=== PATIENT | male | born 1975 ===

== ENCOUNTER 2024-07-26 08:39 | Outpatient (AMB) | payer OTHER, SELFPAY ==
--- NOTE | 2024-07-26 08:45 | A.OFFPC_ITS ---
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 [employer] Required: No Allergies zoloft Adverse Reaction (Severe, Uncoded 07/26/24 09:07) Hallucinations Tobacco use date assessed: 07/26/24 Dental Screening Dental Screen Date: 07/26/24 Did you have a dental visit in the last 12 months?: Yes Did you have a dental problem in the last 6 months where you did not have access to dental care?: No Was dental information given to patient?: Patient has dentist HPI HPI Comments History of Present Illness Details New patient Prior PCP:?Minerva Sims Last office visit/CPE: About 1 year Acute issue(s): HTN -He is on diltiazem 120 mg daily and [place] 50 mg daily Hypercholesterolemia -He is on atorvastatin 20 mg daily GERD -He is on pantoprazole 40 mg daily Chronic paresthesia of the right hand and right and left foot -He notes that his symptoms started foll owing his stroke in 2014 -He is on pregabalin 150mg twice daily Ingrown toenail left great toe -Was referred to podiatry by his former PCP but never contacted for an appointment h/o PE, h/o left pulmonary infraction -He is on Xarelto 20 mg daily Anxiety, recurrent major depressive disorder, bipolar 1 disorder - He notes that he was followed by a [facility] chiatrist somewhere in [place] and was on Paxil, Depakote, buspirone, risperidone, and trazadone. He stopped taking psychotropic medication about a year ago, because I am better without them -He sees a therapist every 2 weeks at [facility] Anisometropia -Corrected with prescription glasses He reports controlled mood at this time. He generally sleeps well. He notes that i don't want to live because i have no family. I don't have any plans of killing myself, i can't do it, i'm a chicken. He notes that his kicked him out after he had the stroke because his thinks he is a burden to her. He currently resides in his mother's home; his mother is currently in a fpc He is currently employed by [employer] and works over 40 hours weekly He notes that he generally eats healthy. He does not engage in formal exercise but notes that his job is very physical PMHx: Anxiety, recurrent major depressive disorder, bipolar 1 disorder, panic disorder, memory loss, aphasia, PE, left pulmonary infarction, palpitations, CVA (2015), hypercholesterolemia, HTN, Gilbert's syndrome SurgHx: None FHx: Dad: Alcohol abuse SocHx: Smokes 10 cigarettes daily for the past 4years. Vapes nicotine weekly for the past 4 years. Drinks 2 beers occasionally. No recreational drugs Last eye exam was few months ago. Does not recall provider's or practice name. He will sign a release for his PCP to obtain record Last tetanus likely 5 years ago He has not been vaccinated for the flu and decline the vaccine He notes he was followed by Cardiology and GI at [facility] until his health plan stopped coverage. He notes that he saw neurology somewhere in [place] following his stroke and was told there is nothing they can do for me. [facility] Medical History (Updated 07/26/24 @ 10:59 by Patricia Montes CNP) Depression Anxiety Memory loss H/O blood clots Palpitation Stroke High cholesterol High blood pressure Family History (Updated 07/26/24 @ 09:10 by Wanda Dougherty MA) Father Alcohol abuse High blood pressure Cardiovascular disease Mother High blood pressure Maternal Grandmother Diabetes Maternal Grandfather Cardiovascular disease Other Gilbert syndrome Social History Housing: House Patient Tobacco Use Status: Current everyday Tobacco user Cigarette Packs Per Day: 10 Cigarettes Per Day: 10 e-Cigarette/Vaping Use: Currently Using Second Hand Smoke Exposure: No service: No Current occupational status: disabled Current occupational exposures/hazards: No Cognitive needs: Yes Hearing needs: No Vision needs: Yes Questionnaire PHQ-9 Over the last 2 weeks, how often have you been bothered by any of the following problems? 1. Little interest or pleasure in doing things: several days 2. Feeling down, depressed, or hopeless: several days 3. Trouble falling or staying asleep, or sleeping too much: several days 4. Feeling tired or having little energy: several days 5. Poor appetite or overeating: several days 6. Feeling bad about yourself - or that you are a failure or have let yourself or your family down: not at all 7. Trouble concentrating on things, such as reading the newspaper or watching television: several days 8. Moving or speaking so slowly that other people could have noticed. Or the opposite - being so fidgety or restless that you have been moving around a lot more than usual: several days 9. Thoughts that you would be better off or of hurting yourself in some way: several days Total score: 8 Depression Screening Interpretation: Positive Depression Screening Done: Yes 85009 - PHQ-9 Billing: Yes Source: Developed by Drs. Sergo Brady, Monse Nash, Tyler Casey and colleagues, with an educational lois from [employer]. Thrive Questionnaire Date Thrive assessed: 07/26/24 I am a: Patient What is your living situation today?: I choose not to answer this question Within the past 12 months, did the food you bought not last and you didn't have the money to get more?: I choose not to answer this question Within the past 12 months, did you worry whether your food would run out before you got money to buy more?: I choose not to answer this question Do you have trouble paying for medicines?: I choose not to answer this question Do you have trouble getting transportation to medical appointments?: I choose not to answer this question Do you have trouble paying your heating and electricity bill?: I choose not to answer this question Do you have trouble taking care of your child, family member or friend?: I choose not to answer this question Do you have trouble with day-to-day activities such as bathing, preparing meals, shopping, managing finances, etc.?: I choose not to answer this question Are you currently unemployed and looking for a job?: I choose not to answer this question Are you interested in more education?: I choose not to answer this question Please select the resources that you would like help with: None Currently or been in a relationship where the following occur: I choose not to answer THRIVE Score: 0 AUDIT C Alcohol Use Questionnaire (AUDIT-C) 1. How often do you have a drink containing alcohol?: Monthly or less 2. How many drinks containing alcohol do you have on a typical day when you are drinking?: 1 or 2 3. How often do you have six or more drinks on one occasion?: Never Total Score: 1 Score Reviewed/Action Taken: Yes ROSELYN-7 AMB Questionnaire ROSELYN-7 Date ROSELYN - 7 assessed: 07/26/24 Feeling nervous, anxious, or on edge: 1 = Several days Not being able to stop or control worryin = Several days Worrying too much about different things: 1 = Several days Trouble relaxin = Several days Being so restless that it is hard to sit still: 1 = Several days Becoming easily annoyed or irritable: 3 = Nearly every day Feeling afraid as if something awful might happen: 1 = Several days Total ROSELYN-7 score (0-4 normal; 5-9 mild; 10-14 moderate; 15-21 severe): 9 Source: Developed by Drs. Sergo Brady, Monse Nash, Tyler Casey and colleagues, with an educational lois from [employer]. ROSELYN-7 Assessment Billing ROSELYN-7 Assessment Tool: ROSELYN-7 Assessment 30599 Review of Systems Const Details: Denies chills, Denies fatigue, Denies fever(s), Denies headache(s) and Denies weakness HEENT Denies change in vision, Denies dizziness, Denies headache(s), Denies hearing loss, Denies nasal congestion, Denies sinus pain, Denies sinus pressure and Denies sore throat Card Denies chest pain, Denies lightheadedness, Denies dyspnea and Denies other (palpitations) Resp Denies cough, Denies dyspnea and Denies wheezing GI Denies abdominal pain, Denies melena, Denies hematochezia, Denies change in bowel habits, Denies dyspepsia and Denies nausea Denies hematuria and Denies dysuria Musc Denies abnormal gait, Denies myalgias, Denies arthralgias, Denies numbness and Denies tingling Skin/Breast Denies rash, Denies unusual bruising and Denies wounds Neuro Denies abnormal gait, Denies dizziness, Denies headache(s), Denies memory loss, Denies numbness, Denies Sensory deficit (Neuro), Denies tingling and Denies weakness Psych Denies anxiety, Denies depression and Denies memory loss Endo Denies cold intolerance, Denies fatigue, Denies heat intolerance, Denies polydipsia and Denies polyuria Wilver/Lymph Denies easy bleeding and Denies easy bruising Aller/Immun Denies wheezing Physical exam (Primary Care) Vital Signs: Last Vital Signs Temp 97.6 F 07/26/24 08:55 Pulse 94 07/26/24 08:55 Resp 16 07/26/24 08:55 BP 170/98 H 07/26/24 08:55 Pulse Ox 98 07/26/24 08:55 Oxygen Delivery Method Room Air 07/26/24 08:55 BMI result Body Mass Index 31.5 Tobacco/Smoking Status: Tobacco use Status Tobacco use date assessed 07/26/24 07/26/24 08:55 Patient Tobacco Use Status Current everyday Tobacco 07/26/24 08:55 e-Cigarette/Vaping Use Currently Using 07/26/24 08:55 PHQ-9: PHQ-9 Score PHQ-9: Total score 8 07/26/24 08:55 Depression Screening Interpretation: Positive Thrive Assessment: Date of Thrive Assessment Date Thrive assessed 07/26/24 07/26/24 08:55 Currently or been in a relationship where the following occur: I choose not to answer Const Other: General: no acute distress, well developed, alert and awake Nutritional Appearance: well nourished Orientation/consciousness: patient oriented x3 HENMT Head: Yes normocephalic and Yes atraumatic Ears: hearing grossly normal bilaterally and impacted cerumen in both ears occluding the TMs General nose exam: Normal external nose present and Normal nares present Mouth: Normal oral and palatal mucosa present and moist mucous membranes Teeth and gingiva: dentition normal Throat: Yes oropharynx normal Eyes Pupils: Equal, round and reactive pupils present and Pupil accommodation reflex normal EOM: EOMs intact bilaterally Neck Neck: Yes normal visual inspection, Yes no lymphadenopathy and Yes trachea midline Thyroid: Thyroid normal Carotids: no bruits Lymphatic: no lymphadenopathy noted Chest Chest palpation & inspection: normal inspection of the chest Resp Effort & Inspection: normal respiratory effort Auscultation: clear to auscultation bilaterally Cardio Rate: regular rate Rhythm: regular rhythm Heart sounds: S1 normal heart sound present, S2 normal heart sound present, no gallops, no murmurs and no rubs Bruits: no abdominal aortic bruits and no carotid bruits GI Palpation (GI): No Abdominal aortic bruit present, Soft to palpation, nontender, No hepatosplenomegaly present and No Rebound tenderness present Auscultation: normal bowel sounds General: Yes no CVA tenderness Back/Spine/Pelvis Back: no CVA tenderness Cervical Spine: cervical ROM normal and No Cervical spine tenderness Thoracic/Lumbar Spine: thoraco-lumbar ROM normal, No pain with thoraco-lumbar ROM, No thoracic spinal tenderness and No lumbar spinal tenderness Skin General: warm and dry. Normal skin color. Normal skin turgor Lesions: no lesions Rashes: no rashes Trauma: no lacerations or abrasions Wounds: no wounds Nails: normal Neuro General: patient oriented x3, gait normal and CN's II-XI intact bilaterally Cranial nerves: Yes Equal, round and reactive pupils present Cognition (Neuro): normal cognition Gait exam (Neuro): Normal gait present Motor exam (neuro): 5/5 motor strength present throughout Sensory Exam: No Sensory deficit (Neuro) Deep tendon reflexes (DTR's): Right patellar reflex intensity grade: 2+ and Left patellar reflex intensity grade: 2+ Extrem General: Yes normal to inspection, No edema and No calf tenderness Psych Appearance: grossly normal Affect: normal affect Attitude: cooperative Thought process: Normal thought process present Coding Level of Care Code New Pt Level 5 (41534) New Pt Prev Care 40-64y(85115) Diagnoses Normal physical examination, routine Z00.00 Major depressive disorder, recurrent F33.9 Bipolar 1 disorder F31.9 Anxiety F41.9 Memory loss R41.3 High blood pressure I10 Hypercholesterolemia E78.00 Hx pulmonary embolism Z86.711 Anisometropia H52.31 GERD (gastroesophageal reflux disease) K21.9 Paresthesias in right hand R20.2 Paresthesia of right foot R20.2 Paresthesia of left foot R20.2 Ingrown toenail of left foot L60.0 Smoking 1/2 pack a day or less F17.210 Engages in vaping Z72.89 Impacted cerumen of both ears H61.23 Obesity (BMI 30-39.9) E66.9 Laboratory tests ordered as part of a complete physical exam (CPE) Z00.00 Additional Codes ROSELYN-7 Assessment Billing - ROSELYN-7 Assessment Tool: ROSELYN-7 Assessment 44985 ([id number]) Time Spent (min) 60 Assessment & Plan Assessment & Plan (1) Normal physical examination, routine: Code(s): Z00.00 - Encounter for general adult medical examination without abnormal findings Category: Medical Plan: No significant functional limitations noted Continue current treatment regimen Healthy diet and routine exercise encouraged Medication reconciled with the pharmacy Follow-up in 2 days for a nurse visit for blood pressure check and with PCP in a week for hypertension Return sooner with symptoms or concerns Verbalized understanding and agreed with treatment plan (2) Major depressive disorder, recurrent: Code(s): F33.9 - Major depressive disorder, recurrent, unspecified Category: Medical Plan: Reports controlled mood. He generally sleeps well He was on psychotropic medication until a year ago. He stopped taking the medications because he thinks that his mood is controlled without them. He is currently employed PHQ-9 and ROSELYN-7 scores revealed mild depression and anxiety respectively He is followed by therapist every other week Routine exercise encouraged Advised to continue follow-up with therapist as planned Return with symptoms or concerns Verbalized understanding and agreed with the treatment plan (3) Bipolar 1 disorder: Code(s): F31.9 - Bipolar disorder, unspecified Category: Medical Plan: Plan as above (4) Anxiety: Code(s): F41.9 - Anxiety disorder, unspecified Category: Medical Plan: Plan as above (5) Memory loss: Code(s): R41.3 - Other amnesia Category: Medical Plan: Attributes member lost to CVA which he had in 2014 He also has expressive and receptive aphasia. His expressive dysphagia significantly improved following speech therapy. He still continues to struggle with information processing. He is a poor historian due to poor memory recall Declines referral to speech therapist Advised to inform his PCP for speech therapy referral as needed Verbalized understanding and agreed with the plan (6) High blood pressure: Code(s): I10 - Essential (primary) hypertension Category: Medical Plan: Resting blood pressure is 170/98, above goal of less than 130/80. He notes that he has not taking his medications today. He usually takes his medications in the afternoon. No headache, visual disturbances, or chest pain. He attributes his elevated blood pressure to feeling anxious at doctor's visits His blood pressure is likely elevated because he has not taking his medication and last 24 hours, medication doses may be inadequate, or white coat syndrome Encouraged to take his medications in the morning and as prescribed Low-sodium diet encouraged Follow-up for nurse visit for blood pressure check in 2 days and with PCP in a week Return with symptoms or concerns Verbalized understanding and agreed with the treatment plan (7) Hypercholesterolemia: Code(s): E78.00 - Pure hypercholesterolemia, unspecified Category: Medical Plan: Continue to take atorvastatin as prescribed Advised to limit foods high in saturated fat and avoid foods high in trans fat Routine exercise encouraged Will check lipid panel levels and make changes as needed Verbalized understanding and agreed with the plan (8) Hx pulmonary embolism: Code(s): Z86.711 - Personal history of pulmonary embolism Category: Medical Plan: Advised to take Xarelto as prescribed Verbalized understanding and agreed with the plan (9) Anisometropia: Code(s): H52.31 - Anisometropia Category: Medical Plan: Corrected with prescription glasses His last eye exam was a few months ago. He does not recall provider's or practice name. He will sign release for his PCP to obtain record (10) GERD (gastroesophageal reflux disease): Code(s): K21.9 - Gastro-esophageal reflux disease without esophagitis Category: Medical Plan: Continue take pantoprazole 40 mg daily (11) Paresthesias in right hand: Code(s): R20.2 - Paresthesia of skin Category: Medical Plan: He reports hronic paresthesia of the right hand and right and left foot which he attributes to history of stroke. He is on pregabalin 150mg twice daily Continue to take pregabalin as prescribed Follow-up with worsening or new symptoms Verbalized understanding and agreed with the plan (12) Paresthesia of right foot: Code(s): R20.2 - Paresthesia of skin Category: Medical Plan: Plan as above (13) Paresthesia of left foot: Code(s): R20.2 - Paresthesia of skin Category: Medical Plan: Plan as above (14) Ingrown toenail of left foot: Code(s): L60.0 - Ingrowing nail Category: Medical Plan: Ingrown toenail of the left great toe Referred to Podiatry (15) Smoking 1/2 pack a day or less: Code(s): F17.210 - Nicotine dependence, cigarettes, uncomplicated Category: Social Hx Plan: He has been smoking 10 cigarettes daily for the past 4years Instructed on the health risks and complications of cigarette smoking and smoking cessation encouraged Declines medications treatment for smoking cessation at this time He may notify his PCP as needed for medication treatment Verbalized understanding and agreed with the plan (16) Engages in vaping: Code(s): Z72.89 - Other problems related to lifestyle Category: Medical Plan: Instructed on the health risks and complications of vaping nicotine and encouraged to stop Declines medication treatment for nicotine use He may notify his PCP as needed for medication treatment Verbalized understanding and agreed with the treatment plan (17) Impacted cerumen of both ears: Code(s): H61.23 - Impacted cerumen, bilateral Category: Medical Plan: Impacted cerumen in both ears occluding the TMs Declined treatment with Debrox or ear lavage He may notify his PCP as needed for treatment Verbalized understanding and agreed with the plan (18) Obesity (BMI 30-39.9): Code(s): E66.9 - Obesity, unspecified Category: Medical Plan: He currently weighs 207 lb, BMI is 31.5 Declines referral to dietitian or weight management and notes he will continue with lifestyle changes Healthy diet and routine exercise encouraged Follow-up as needed for weight management referral Verbalized understanding and agreed with the plan (19) Laboratory tests ordered as part of a complete physical exam (CPE): Code(s): Z00.00 - Encounter for general adult medical examination without abnormal find ings Category: Medical Plan: Fasting labs ordered as part of a complete physical exam. Advised to fast for at least 10 hours before getting labs drawn. May drink water Verbalized understanding and agreed with treatment plan. Orders: Orders Comprehensive [place]. Panel Fast Today Z00.00 - Encounter for general adult medical examination without abnormal findings Microalbumin, Random (w Creat) Today Z00.00 - Encounter for general adult medical examination without abnormal findings UA CC w/rflx Micro + Cult Today Z00.00 - Encounter for general adult medical examination without abnormal findings PSA, Ultra Sensitive Today Z00.00 - Encounter for general adult medical examination without abnormal findings Complete Blood Count Auto Diff Today Z00.00 - Encounter for general adult medical examination without abnormal findings Lipid Panel Today Z00.00 - Encounter for general adult medical examination without abnormal findings TSH reflex Free T4 Today Z00.00 - Encounter for general adult medical examination without abnormal findings Referrals Podiatry Referral L60.0 - Ingrowing nail Medications: New atorvastatin 20 mg PO DAILY 90 days 90 tabs 1RF diltiazem HCl CD 120 mg PO DAILY 90 days 90 caps 1RF losartan 50 mg PO DAILY 90 days 90 tabs 1RF pantoprazole 40 mg PO DAILY 90 days 90 tabs 1RF rivaroxaban (Xarelto) 20 mg PO DAILY 90 days 90 tabs 1RF pregabalin 150 mg PO BID 30 days 60 caps 0RF
[2024-07-26 08:55] VITALS: BP 170/98; PULSE 94; RESP 16; TEMP 36.4; O2SAT 98; BMI 31.5
== END 2024-07-26 10:10 | disposition home or self-care (01) ==
PROVIDERS: Visit Provider Nurse Practitioner Family
DX: Z00.00 Encounter for general adult medical examination without abnormal findings (principal); I10 Essential (primary) hypertension; F31.9 Bipolar disorder, unspecified; F41.9 Anxiety disorder, unspecified; R41.3 Other amnesia; E78.00 Pure hypercholesterolemia, unspecified; Z86.711 Personal history of pulmonary embolism; H52.31 Anisometropia; K21.9 Gastro-esophageal reflux disease without esophagitis; R20.2 Paresthesia of skin; L60.0 Ingrowing nail

== ENCOUNTER → 2024-07-26 08:39 | Outpatient (BNVA) | payer OTHER, SELFPAY | PROVIDERS: Visit Provider Nurse Practitioner Family | DX: Z00.01 Encounter for general adult medical examination with abnormal findings (principal); F33.9 Major depressive disorder, recurrent, unspecified; F41.9 Anxiety disorder, unspecified; R41.3 Other amnesia; I10 Essential (primary) hypertension; E78.00 Pure hypercholesterolemia, unspecified; H52.31 Anisometropia; K21.9 Gastro-esophageal reflux disease without esophagitis; R20.2 Paresthesia of skin; L60.0 Ingrowing nail; H61.23 Impacted cerumen, bilateral; E66.9 Obesity, unspecified; Z72.89 Other problems related to lifestyle; Z86.711 Personal history of pulmonary embolism | CPT/HCPCS: 96127; 99202; 99386 ==

== ENCOUNTER → 2024-07-28 09:42 | Outpatient (BNVA) | payer OTHER, SELFPAY | PROVIDERS: Visit Provider Nurse Practitioner Family ==

== ENCOUNTER 2024-07-28 10:27 | Outpatient (REF) | payer OTHER, SELFPAY ==
[2024-07-28 11:45] LABS: Appearance Urine Clear; Color Urine Yellow; Glucose Urine UA Negative (Negative); Leukocyte Esterase Urine Negative (Negative); Nitrite Urine Negative (Negative); Urine Blood Negative (Negative); Urine Ketones Negative (Negative); Urine Protein Negative (Neg-Trace)
[2024-07-28 12:03] LABS: MANUAL DIFF FLAG NO
[2024-07-28 12:11] LABS: Basophils Absolute Auto 0.1 X10*3/uL (0.0-0.2); Basophils Percent Auto 1.1 % (0-2); Eosinophils Absolute Auto 0.1 X10*3/uL (0.0-0.4); Eosinophils Percent Auto 0.9 % (0-4); Hematocrit 52.1 % (42.0-52.0); Hemoglobin 17.9 g/dl (14.0-18.0); Imm Gran Abs Auto 0.04 X10*3/uL (0.00-0.03); Imm Gran Pct Auto 0.5 % (0.0-0.4); Lymphocytes Absolute Auto 1.4 X10*3/uL (1.2-4.9); Lymphocytes Percent Auto 18.7 % (20-40); Mean Corpuscular HGB Conc 34.4 g/dl (31.0-36.0); Mean Corpuscular Hemoglobin 31.4 pg (27.0-33.0); Mean Corpuscular Volume 91.4 fL (80.0-98.0); Monocytes Absolute Auto 0.6 X10*3/uL (0.1-1.2); Monocytes Percent Auto 7.9 % (2-11); Neutrophils Absolute Auto 5.3 x10*3/uL (2.0-8.3); Neutrophils Percent Auto 70.9 % (45-73); Platelet Count 383 X10*3/uL (160-400); Red Cell Distribution Width 12.1 % (11.0-16.0); White Blood Count 7.5 X10*3/uL (4.8-10.8)
[2024-07-28 13:32] LABS: Creatinine Urine 155.53 mg/dL; Microalbum/Creatinine Ratio Ur 7.7 ug/mg cr (<30)
[2024-07-28 13:35] LABS: Alanine Aminotransferase 28 U/L (0-40); Albumin Level 4.7 g/dL (3.5-5.0); Alkaline Phosphatase 80 U/L (39-117); Anion Gap 15 (12-20); Aspartate Amino Transferase 18 U/L (5-37); Bilirubin Total 1.6 mg/dL (0.0-1.0); Blood Urea Nitrogen 13 mg/dL (9-16); Calcium 9.9 mg/dL (8.4-10.2); Carbon Dioxide 29 mmol/L (22-29); Chloride 102 mmol/L (96-108); Cholesterol 178 mg/dL (<200); Estimated Glomerular Filt Rate > 60; Glucose Fasting 88 mg/dL (60-99); HDL Cholesterol 45 mg/dL (>40); LDL Cholesterol Calculated 117 mg/dL (<100); Potassium 4.5 mmol/L (3.3-5.1); Sodium 141 mmol/L (135-145); Total Protein 7.6 g/dL (6.5-8.0); Triglycerides 83 mg/dL (<150)
[2024-07-28 13:51] LABS: TSH reflex Free T4 0.82 uIU/mL (0.32-4.0)
[2024-08-02 20:38] LABS: PSA, Ultra Sensitive 1.91 ng/mL
== END 2024-07-28 10:28 | disposition home or self-care (01) ==
LOC: HO.WFDLDS 10:27
PROVIDERS: Visit Provider Nurse Practitioner Family
DX: Z00.00 Encounter for general adult medical examination without abnormal findings (principal)
CPT/HCPCS: 36415; 80053; 80061; 81003; 82043; 82570; 84153; 84443; 85025

== ENCOUNTER 2024-08-02 13:13 | Outpatient (AMB) | payer OTHER, SELFPAY ==
--- NOTE | 2024-08-02 13:15 | MHC.PC.OV ---
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 Allergies zoloft Adverse Reaction (Severe, Uncoded 08/02/24 13:32) Hallucinations Medication List - Last Reconciled 08/02/24 by Patricia Montes CNP atorvastatin 20 mg PO DAILY 90 days diltiazem HCl CD 120 mg PO DAILY 90 days losartan 50 mg PO DAILY 90 days pantoprazole 40 mg PO DAILY 90 days pregabalin 150 mg PO BID 30 days rivaroxaban (Xarelto) 20 mg PO DAILY 90 days Tobacco use date assessed: 08/02/24 Dental Screening Dental Screen Date: 07/26/24 Did you have a dental visit in the last 12 months?: No Did you have a dental problem in the last 6 months where you did not have access to dental care?: No Was dental information given to patient?: Patient declined HPI HPI Comments History of Present Illness Details 48-year-old male presents for hypertension follow-up He admits to taking his medications as prescribed without adverse reactions He offers no complaints and denies acute symptoms at this time [facility] Medical History (Updated 08/02/24 @ 13:37 by Patricia Montes CNP) Depression Anxiety Memory loss H/O blood clots Palpitation Stroke High cholesterol High blood pressure Family History (Updated 07/26/24 @ 09:10 by Wanda Dougherty MA) Father Alcohol abuse High blood pressure Cardiovascular disease Mother High blood pressure Maternal Grandmother Diabetes Maternal Grandfather Cardiovascular disease Other Gilbert syndrome Social History Housing: House Patient Tobacco Use Status: Current everyday Tobacco user Cigarette Packs Per Day: 10 Cigarettes Per Day: 10 e-Cigarette/Vaping Use: Currently Using Second Hand Smoke Exposure: No service: No Current occupational status: disabled Current occupational exposures/hazards: No Cognitive needs: Yes Hearing needs: No Vision needs: Yes Questionnaire Thrive Questionnaire Date Thrive assessed: 07/26/24 I am a: Patient What is your living situation today?: I choose not to answer this question Within the past 12 months, did the food you bought not last and you didn't have the money to get more?: I choose not to answer this question Within the past 12 months, did you worry whether your food would run out before you got money to buy more?: I choose not to answer this question Do you have trouble paying for medicines?: I choose not to answer this question Do you have trouble getting transportation to medical appointments?: I choose not to answer this question Do you have trouble paying your heating and electricity bill?: I choose not to answer this question Do you have trouble taking care of your child, family member or friend?: I choose not to answer this question Do you have trouble with day-to-day activities such as bathing, preparing meals, shopping, managing finances, etc.?: I choose not to answer this question Are you currently unemployed and looking for a job?: I choose not to answer this question Are you interested in more education?: I choose not to answer this question Please select the resources that you would like help with: None Currently or been in a relationship where the following occur: I choose not to answer THRIVE Score: 0 ROSELYN-7 AMB Questionnaire ROSELYN-7 Date ROSELYN - 7 assessed: 07/26/24 Becoming easily annoyed or irritable: 1 = Several days Source: Developed by Drs. Sergo Brady, Monse Nash, Tyler Casey and colleagues, with an educational lois from [employer]. Review of Systems Const Details: Const Denies chills, Denies fatigue, Denies fever(s), Denies headache(s) and Denies weakness ENT Denies dizziness and Denies headache(s) Card Denies chest pain, Denies lightheadedness, Denies dyspnea and Denies other (Palpitations) Resp Denies cough, Denies dyspnea, Denies wheezing and Denies other ( shortness of breath) GI Denies abdominal pain, Denies melena, Denies hematochezia, Denies change in bowel habits, Denies dyspepsia and Denies nausea Denies hematuria and Denies dysuria Musc Denies abnormal gait, Denies myalgias, Denies arthralgias, Denies numbness and Denies tingling Skin/Breast Denies rash, Denies unusual bruising and Denies wounds Neuro Denies abnormal gait, Denies dizziness, Denies headache(s), Denies memory loss, Denies numbness, Denies Sensory deficit (Neuro), Denies tingling and Denies weakness Psych Denies anxiety, Denies depression, Denies memory loss Endo Denies cold intolerance, Denies fatigue, Denies heat intolerance, Denies polydipsia and Denies polyuria Aller/Immun Denies wheezing Physical exam (Primary Care) Vital Signs: Last Vital Signs Temp 98.0 F 08/02/24 13:22 Pulse 85 08/02/24 13:22 Resp 16 08/02/24 13:22 BP 136/72 08/02/24 13:22 Pulse Ox 96 08/02/24 13:22 Oxygen Delivery Method Room Air 08/02/24 13:22 BMI result Body Mass Index 31.5 Tobacco/Smoking Status: Tobacco use Status Tobacco use date assessed 08/02/24 08/02/24 13:24 Patient Tobacco Use Status Current everyday Tobacco 08/02/24 13:18 e-Cigarette/Vaping Use Currently Using 08/02/24 13:18 Thrive Assessment: Date of Thrive Assessment Date Thrive assessed 07/26/24 08/02/24 13:18 Currently or been in a relationship where the following occur: I choose not to answer Const Other: General: no acute distress and well developed Nutritional Appearance: well nourished Orientation/consciousness: patient oriented x3 [facility] Head: Yes normocephalic and Yes atraumatic Eyes General: appearance normal, both eyes and all related structures Pupils: Equal, round and reactive pupils present EOM: EOMs intact bilaterally Resp Effort & Inspection: normal respiratory effort Auscultation: clear to auscultation bilaterally Cardio Rate: regular rate Rhythm: regular rhythm Heart sounds: S1 normal heart sound present, S2 normal heart sound present, no gallops, no murmurs and no rubs GI Palpation (GI): No Abdominal aortic bruit present, Soft to palpation, nontender, No hepatosplenomegaly present and No Rebound tenderness present Auscultation: normal bowel sounds General: Yes no CVA tenderness Back/Spine/Pelvis Back: no CVA tenderness Extrem General: Yes normal to inspection, No edema and No calf tenderness Skin General: warm and dry. Normal skin color. Normal skin turgor Neuro General: patient oriented x3, gait normal and no focal neuro deficit Cranial nerves: Yes Equal, round and reactive pupils present Cognition (Neuro): normal cognition Gait exam (Neuro): Normal gait present Sensory Exam: No Sensory deficit (Neuro) Psych Appearance: grossly normal Affect: normal affect Attitude: cooperative Thought process: Normal thought process present Coding Level of Care Code Est Pt Level 4 (37452) Diagnoses High blood pressure I10 Gilbert syndrome E80.4 Time Spent (min) 40 Assessment & Plan Assessment & Plan (1) High blood pressure: Code(s): I10 - Essential (primary) hypertension Category: Medical Plan: Resting blood pressure is 136/72, slightly above goal of less than 130/80 Continue current treatment regimen Low-sodium diet and routine exercise encouraged Follow-up in 1 month or sooner with symptoms or concerns Verbalized understanding and agreed with treatment plan (2) Gilbert syndrome: Code(s): E80.4 - Gilbert syndrome Category: Medical Plan: Recent lab results reviewed with the patient. Unremarkable findings except for elevated bilirubin, 6.1 No acute signs or symptoms noted He has a history of Gilbert syndrome
[2024-08-02 13:22] VITALS: BP 136/72; PULSE 85; RESP 16; TEMP 36.7; O2SAT 96; BMI 31.5
== END 2024-08-02 13:57 | disposition home or self-care (01) ==
PROVIDERS: PCP Nurse Practitioner Family; Visit Provider Nurse Practitioner Family
DX: I10 Essential (primary) hypertension (principal); E80.4 Gilbert syndrome

== ENCOUNTER → 2024-08-02 13:13 | Outpatient (BNVA) | payer OTHER, SELFPAY | PROVIDERS: Visit Provider Nurse Practitioner Family | DX: I10 Essential (primary) hypertension (principal); E80.4 Gilbert syndrome | CPT/HCPCS: 99212 ==

== ENCOUNTER 2024-08-11 14:48 | Outpatient (AMB) | payer OTHER, SELFPAY ==
--- NOTE | 2024-08-11 14:53 | A.OFFPC_ITS ---
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 Allergies zoloft Adverse Reaction (Severe, Uncoded 08/02/24 13:32) Hallucinations Medication List - Last Reconciled 08/11/24 by Patricia Montes CNP atorvastatin 20 mg PO DAILY 90 days diltiazem HCl CD 120 mg PO DAILY 90 days losartan 50 mg PO DAILY 90 days pantoprazole 40 mg PO DAILY 90 days pregabalin 150 mg PO BID 30 days rivaroxaban (Xarelto) 20 mg PO DAILY 90 days Tobacco use date assessed: 08/11/24 Dental Screening Dental Screen Date: 07/26/24 HPI HPI Comments History of Present Illness Details 48 y/o male presents to have FMLA paperw ork filled out for potential unplanned excuse from work for stress and anxiety. He notes that he experienced stress and painc attack in the middle of July while at work. EMS was contacted and found the patient's SBP to be 180. He notes that his employer advised to that an FMLA paperwork signed for few days unexpected leave monthly. He sees his therapist every 2 weeks. He denies acute symptoms at this time. He reports controlled anxiety and depressive symptoms and notes that he does not want to be on psychotropic medications [facility] Medical History (Updated 08/02/24 @ 13:37 by Patricia Montes CNP) Depression Anxiety Memory loss H/O blood clots Palpitation Stroke High cholesterol High blood pressure Family History (Updated 07/26/24 @ 09:10 by Wanda Dougherty MA) Father Alcohol abuse High blood pressure Cardiovascular disease Mother High blood pressure Maternal Grandmother Diabetes Maternal Grandfather Cardiovascular disease Other Gilbert syndrome Social History Housing: House Patient Tobacco Use Status: Current everyday Tobacco user Cigarette Packs Per Day: 10 Cigarettes Per Day: 10 e-Cigarette/Vaping Use: Currently Using Second Hand Smoke Exposure: No service: No Current occupational status: disabled Current occupational exposures/hazards: No Cognitive needs: Yes Hearing needs: No Vision needs: Yes Questionnaire Thrive Questionnaire Date Thrive assessed: 07/26/24 I am a: Patient What is your living situation today?: I choose not to answer this question Within the past 12 months, did the food you bought not last and you didn't have the money to get more?: I choose not to answer this question Within the past 12 months, did you worry whether your food would run out before you got money to buy more?: I choose not to answer this question Do you have trouble paying for medicines?: I choose not to answer this question Do you have trouble getting transportation to medical appointments?: I choose not to answer this question Do you have trouble paying your heating and electricity bill?: I choose not to answer this question Do you have trouble taking care of your child, family member or friend?: I choose not to answer this question Do you have trouble with day-to-day activities such as bathing, preparing meals, shopping, managing finances, etc.?: I choose not to answer this question Are you currently unemployed and looking for a job?: I choose not to answer this question Are you interested in more education?: I choose not to answer this question Please select the resources that you would like help with: None Currently or been in a relationship where the following occur: I choose not to answer THRIVE Score: 0 AUDIT C Alcohol Use Questionnaire (AUDIT-C) 1. How often do you have a drink containing alcohol?: Never Total Score: 0 ROSELYN-7 AMB Questionnaire ROSELYN-7 Date ROSELYN - 7 assessed: 07/26/24 Source: Developed by Drs. Sergo Brady, Monse Nash, Tyler Casey and colleagues, with an educational lois from [employer]. Review of Systems Const Details: Const Denies chills, Denies fatigue, Denies fever(s), Denies headache(s) and Denies weakness ENT Denies dizziness and Denies headache(s) Card Denies chest pain, Denies lightheadedness, Denies dyspnea and Denies other (Palpitations) Resp Denies cough, Denies dyspnea, Denies wheezing and Denies other ( shortness of breath) GI Denies abdominal pain, Denies melena, Denies hematochezia, Denies change in bowel habits, Denies dyspepsia and Denies nausea Denies hematuria and Denies dysuria Musc Denies abnormal gait, Denies myalgias, Denies arthralgias, Denies numbness and Denies tingling Skin/Breast Denies rash, Denies unusual bruising and Denies wounds Neuro Denies abnormal gait, Denies dizziness, Denies headache(s), Denies memory loss, Denies numbness, Denies Sensory deficit (Neuro), Denies tingling and Denies weakness Psych Denies anxiety, Denies depression, Denies memory loss Endo Denies cold intolerance, Denies fatigue, Denies heat intolerance, Denies polydipsia and Denies polyuria Aller/Immun Denies wheezing Physical exam (Primary Care) Vital Signs: Last Vital Signs Temp 97.9 F 08/11/24 14:59 Pulse 70 08/11/24 14:59 Resp 16 08/11/24 14:59 BP 126/78 08/11/24 14:59 Pulse Ox 97 08/11/24 14:59 Oxygen Delivery Method Room Air 08/11/24 14:59 BMI result Body Mass Index 32.0 Tobacco/Smoking Status: Tobacco use Status Tobacco use date assessed 08/11/24 08/11/24 15:01 Patient Tobacco Use Status Current everyday Tobacco 08/11/24 14:56 e-Cigarette/Vaping Use Currently Using 08/11/24 14:56 Thrive Assessment: Date of Thrive Assessment Date Thrive assessed 07/26/24 08/11/24 14:56 Currently or been in a relationship where the following occur: I choose not to answer Const Other: General: no acute distress and well developed Nutritional Appearance: well nourished Orientation/consciousness: patient oriented x3 HENMT Head: Yes normocephalic and Yes atraumatic Eyes General: appearance normal, both eyes and all related structures Pupils: Equal, round and reactive pupils present EOM: EOMs intact bilaterally Resp Effort & Inspection: normal respiratory effort Auscultation: clear to auscultation bilaterally Cardio Rate: regular rate Rhythm: regular rhythm Heart sounds: S1 normal heart sound present, S2 normal heart sound present, no gallops, no murmurs and no rubs GI Palpation (GI): No Abdominal aortic bruit present, Soft to palpation, nontender, No hepatosplenomegaly present and No Rebound tenderness present Auscultation: normal bowel sounds General: Yes no CVA tenderness Back/Spine/Pelvis Back: no CVA tenderness Cervical Spine: cervical ROM normal and No Cervical spine tenderness Thoracic/Lumbar Spine: thoraco-lumbar ROM normal, No pain with thoraco-lumbar ROM, No thoracic spinal tenderness and No lumbar spinal tenderness Extrem General: Yes normal to inspection, No edema and No calf tenderness Skin General: warm and dry. Normal skin color. Normal skin turgor Lesions: no lesions Rashes: no rashes Trauma: no lacerations or abrasions Wounds: no wounds Nails: normal Neuro General: patient oriented x3, gait normal and no focal neuro deficit Cranial nerves: Yes Equal, round and reactive pupils present Cognition (Neuro): normal cognition Gait exam (Neuro): Normal gait present Sensory Exam: No Sensory deficit (Neuro) Psych Appearance: grossly normal Affect: normal affect Attitude: cooperative Thought process: Normal thought process present Coding Level of Care Code Est Pt Level 3 (22157) Diagnoses Anxiety F41.9 Assessment & Plan Assessment & Plan (1) Anxiety: Code(s): F41.9 - Anxiety disorder, unspecified Category: Medical Plan: Reports controlled anxiety and depressive symptoms FMLA paperwork completed and signed for the patient's employer Continue follow-up with therapist as planned Routine exercise encouraged Follow-up with PCP as planned Verbalized understanding and agreed with the plan
[2024-08-11 14:59] VITALS: BP 126/78; PULSE 70; RESP 16; TEMP 36.6; O2SAT 97; BMI 32.0
== END 2024-08-11 15:52 | disposition home or self-care (01) ==
LOC: HO.HMCFM 14:49
PROVIDERS: PCP Nurse Practitioner Family; Visit Provider Nurse Practitioner Family
DX: F41.9 Anxiety disorder, unspecified (principal)

== ENCOUNTER → 2024-08-11 14:48 | Outpatient (BNVA) | payer OTHER, SELFPAY | PROVIDERS: PCP Nurse Practitioner Family; Visit Provider Nurse Practitioner Family | DX: F41.9 Anxiety disorder, unspecified (principal) | CPT/HCPCS: 99212 ==

== ENCOUNTER 2024-09-04 12:57 | Outpatient (AMB) | payer OTHER, SELFPAY ==
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
[2024-09-04 13:10] VITALS: BP 126/76; PULSE 74; RESP 16; TEMP 36.4; O2SAT 97; BMI 32.7
== END 2024-09-04 13:34 | disposition home or self-care (01) ==
PROVIDERS: PCP Nurse Practitioner Family; Visit Provider Nurse Practitioner Family
DX: I10 Essential (primary) hypertension (principal); E80.4 Gilbert syndrome; H61.23 Impacted cerumen, bilateral

== ENCOUNTER → 2024-09-04 12:57 | Outpatient (BNVA) | payer OTHER, SELFPAY | PROVIDERS: PCP Nurse Practitioner Family; Visit Provider Nurse Practitioner Family | DX: I10 Essential (primary) hypertension (principal); E80.4 Gilbert syndrome; H61.23 Impacted cerumen, bilateral | CPT/HCPCS: 99212 ==

== ENCOUNTER 2024-10-17 09:24 | Outpatient (AMB) | payer OTHER, SELFPAY ==
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
[2024-10-17 09:30] VITALS: BP 162/81; PULSE 73; RESP 16; TEMP 36.4; O2SAT 98; BMI 32.7
[2024-10-17 10:20] VITALS: BP 154/80; PULSE 76
== END 2024-10-17 10:43 | disposition home or self-care (01) ==
PROVIDERS: PCP Nurse Practitioner Family; Visit Provider Nurse Practitioner Family
DX: F41.1 Generalized anxiety disorder (principal); F41.0 Panic disorder [episodic paroxysmal anxiety]; I10 Essential (primary) hypertension

== ENCOUNTER → 2024-10-17 09:24 | Outpatient (BNVA) | payer OTHER, SELFPAY | PROVIDERS: PCP Nurse Practitioner Family; Visit Provider Nurse Practitioner Family | DX: F41.1 Generalized anxiety disorder (principal); F41.0 Panic disorder [episodic paroxysmal anxiety]; I10 Essential (primary) hypertension | CPT/HCPCS: 96127; 99212 ==

== ENCOUNTER → 2024-10-31 13:34 | Outpatient (BNVA) | payer OTHER, SELFPAY | PROVIDERS: PCP Nurse Practitioner Family; Visit Provider Nurse Practitioner Family | DX: Z01.30 Encounter for examination of blood pressure without abnormal findings (principal) | CPT/HCPCS: 99211 ==

== ENCOUNTER → 2024-11-15 13:04 | Outpatient (BNVA) | payer OTHER, SELFPAY | PROVIDERS: PCP Nurse Practitioner Family; Visit Provider Nurse Practitioner Family | DX: F41.0 Panic disorder [episodic paroxysmal anxiety] (principal); F41.1 Generalized anxiety disorder; I10 Essential (primary) hypertension | CPT/HCPCS: 99212 ==

== ENCOUNTER 2024-11-28 14:38 | Outpatient (AMB) | payer OTHER, SELFPAY ==
--- NOTE | 2024-11-28 14:46 | MHC.PC.OV ---
Vital Signs 11/28/24 14:51 Height 5 ft 8 in Weight 214 lb BMI 32.5 BP 136/74 Blood Pressure Location Rt brachial Position Sitting Respiration 16 Pulse 63 Pulse Source Pulse Oximeter Temp 97.4 F Temp Source Oral Pulse Oximetry (%) 99 Oxygen Delivery Method Room Air Intake Visit Reasons: paperwork Intake Note: patient here for paper work Supervisor Testing Required: No Allergies zoloft Adverse Reaction (Severe, Uncoded 11/28/24 15:07) Hallucinations Medication List - Last Reconciled 11/28/24 by Patricia Montes CNP atorvastatin 20 mg PO DAILY 90 days carbamide peroxide 6.5% (Debrox) 5 drps otic (ears) DAILY 4 days diltiazem HCl CD 120 mg PO DAILY 90 days losartan 50 mg PO DAILY 90 days pantoprazole 40 mg PO DAILY 90 days pregabalin 150 mg PO BID 90 days propranolol 10 mg PO BID 30 days rivaroxaban (Xarelto) 20 mg PO DAILY 90 days Tobacco use date assessed: 11/28/24 Dental Screening Dental Screen Date: 11/28/24 Did you have a dental visit in the last 12 months?: No Did you have a dental problem in the last 6 months where you did not have access to dental care?: No Was dental information given to patient?: Patient has dentist HPI HPI Comments History of Present Illness Details 49-year-old male presents to have Paid Leave paperwork completed for his employer. He was admitted at [facility] between 09/27/2024 and 09/28/2024 for panic and anxiety. Initially presented in the ED and was evaluated by crisis. He denied hallucination or SI. He endorsed situation at [place] with plan and intent if he is restrained by staff. He was transferred from [facility] to [facility] where he treated and discharged on 10/05/2024 He was cleared by his PCP to resume work on 10/17/2024. Paid Leave paperwork completed for patient's employer on 11/15/2024. However, the patient notes that his employer requires more information on the forms. He reports controlled anxiety and panic symptoms since starting propranolol. He has not had any panic attack since his last visit. He has been taking propranolol 10 mg once a day instead of twice a day as prescribed. He has been enjoying the company of a new female friend. He speaks to his therapist once a month. No acute symptoms at this time. [facility] Medical History (Updated 10/17/24 @ 16:45 by Patricia Montes CNP) Depression Anxiety Memory loss H/O blood clots Palpitation Stroke High cholesterol High blood pressure Family History (Updated 07/26/24 @ 09:10 by Wanda Dougherty MA) Father Alcohol abuse High blood pressure Cardiovascular disease Mother High blood pressure Maternal Grandmother Diabetes Maternal Grandfather Cardiovascular disease Other Gilbert syndrome Social History Housing: House Patient Tobacco Use Status: Current everyday Tobacco user Cigarette Packs Per Day: 10 Cigarettes Per Day: 10 e-Cigarette/Vaping Use: Currently Using Second Hand Smoke Exposure: No service: No Current occupational status: disabled Current occupational exposures/hazards: No Cognitive needs: Yes Hearing needs: No Vision needs: Yes Questionnaire PHQ-9 Over the last 2 weeks, how often have you been bothered by any of the following problems? 1. Little interest or pleasure in doing things: several days 2. Feeling down, depressed, or hopeless: not at all 3. Trouble falling or staying asleep, or sleeping too much: not at all 4. Feeling tired or having little energy: several days 5. Poor appetite or overeating: not at all 6. Feeling bad about yourself - or that you are a failure or have let yourself or your family down: not at all 7. Trouble concentrating on things, such as reading the newspaper or watching television: nearly every day 8. Moving or speaking so slowly that other people could have noticed. Or the opposite - being so fidgety or restless that you have been moving around a lot more than usual: several days 9. Thoughts that you would be better off or of hurting yourself in some way: not at all Total score: 6 Depression Screening Interpretation: Positive Depression Screening Follow-up: Existing condition and In treatment Depression Screening Done: Yes 12405 - PHQ-9 Billing: Yes Source: Developed by Drs. Sergo Brady, Monse Nash, Tyler Casey and colleagues, with an educational lois from [employer]. Thrive Questionnaire Date Thrive assessed: 11/28/24 I am a: Patient What is your living situation today?: I have a steady place to live Within the past 12 months, did the food you bought not last and you didn't have the money to get more?: I choose not to answer this question Within the past 12 months, did you worry whether your food would run out before you got money to buy more?: I choose not to answer this question Do you have trouble paying for medicines?: I choose not to answer this question Do you have trouble getting transportation to medical appointments?: I choose not to answer this question Do you have trouble paying your heating and electricity bill?: I choose not to answer this question Do you have trouble taking care of your child, family member or friend?: I choose not to answer this question Do you have trouble with day-to-day activities such as bathing, preparing meals, shopping, managing finances, etc.?: I choose not to answer this question Are you currently unemployed and looking for a job?: I choose not to answer this question Are you interested in more education?: I choose not to answer this question Please select the resources that you would like help with: None THRIVE Score: 0 AUDIT C Alcohol Use Questionnaire (AUDIT-C) 1. How often do you have a drink containing alcohol?: Never Total Score: 0 ROSELYN-7 AMB Questionnaire ROSELYN-7 Date ROSELYN - 7 assessed: 11/28/24 Feeling nervous, anxious, or on edge: 1 = Several days Not being able to stop or control worryin = Several days Worrying too much about different things: 1 = Several days Trouble relaxin = Several days Being so restless that it is hard to sit still: 1 = Several days Becoming easily annoyed or irritable: 1 = Several days Feeling afraid as if something awful might happen: 1 = Several days Total ROSELYN-7 score (0-4 normal; 5-9 mild; 10-14 moderate; 15-21 severe): 7 Source: Developed by Drs. Sergo Brady, Monse Nash, Tyler Casey and colleagues, with an educational lois from [employer]. ROSELYN-7 Assessment Billing ROSELYN-7 Assessment Tool: ROSELYN-7 Assessment 50965 Review of Systems Const Details: Const Denies chills, Denies fatigue, Denies fever(s), Denies headache(s) and Denies weakness ENT Denies dizziness and Denies headache(s) Card Denies chest pain, Denies lightheadedness, Denies dyspnea and Denies other (Palpitations) Resp Denies cough, Denies dyspnea, Denies wheezing and Denies other ( shortness of breath) GI Denies abdominal pain, Denies melena, Denies hematochezia, Denies change in bowel habits, Denies dyspepsia and Denies nausea Denies hematuria and Denies dysuria Musc Denies abnormal gait, Denies myalgias, Denies arthralgias, Denies numbness and Denies tingling Skin/Breast Denies rash, Denies unusual bruising and Denies wounds Neuro Denies abnormal gait, Denies dizziness, Denies headache(s), Denies memory loss, Denies numbness, Denies Sensory deficit (Neuro), Denies tingling and Denies weakness Psych Denies anxiety, Denies depression, Denies memory loss Endo Denies cold intolerance, Denies fatigue, Denies heat intolerance, Denies polydipsia and Denies polyuria Aller/Immun Denies wheezing Physical exam (Primary Care) Vital Signs: Last Vital Signs Temp 97.4 F 11/28/24 14:51 Pulse 63 11/28/24 14:51 Resp 16 11/28/24 14:51 BP 136/74 11/28/24 14:51 Pulse Ox 99 11/28/24 14:51 Oxygen Delivery Method Room Air 11/28/24 14:51 BMI result Body Mass Index 32.5 Tobacco/Smoking Status: Tobacco use Status Tobacco use date assessed 11/28/24 11/28/24 14:57 Patient Tobacco Use Status Current everyday Tobacco 11/28/24 14:47 e-Cigarette/Vaping Use Currently Using 11/28/24 14:47 Depression Screening Interpretation: Positive Depression Screening Follow-up: Existing condition and In treatment Thrive Assessment: Date of Thrive Assessment Date Thrive assessed 10/14/24 11/28/24 14:47 Const Other: General: no acute distress and well developed Nutritional Appearance: well nourished Orientation/consciousness: patient oriented x3 HENMT Head: Yes normocephalic and Yes atraumatic Eyes General: appearance normal, both eyes and all related structures Pupils: Equal, round and reactive pupils present EOM: EOMs intact bilaterally Resp Effort & Inspection: normal respiratory effort Auscultation: clear to auscultation bilaterally Cardio Rate: regular rate Rhythm: regular rhythm Heart sounds: S1 normal heart sound present, S2 normal heart sound present, no gallops, no murmurs and no rubs GI Palpation (GI): No Abdominal aortic bruit present, Soft to palpation, nontender, No hepatosplenomegaly present and No Rebound tenderness present Auscultation: normal bowel sounds General: Yes no CVA tenderness Back/Spine/Pelvis Back: no CVA tenderness Cervical Spine: cervical ROM normal and No Cervical spine tenderness Thoracic/Lumbar Spine: thoraco-lumbar ROM normal, No pain with thoraco-lumbar ROM, No thoracic spinal tenderness and No lumbar spinal tenderness Extrem General: Yes normal to inspection, No edema and No calf tenderness Skin General: warm and dry. Normal skin color. Normal skin turgor Neuro General: patient oriented x3, gait normal and no focal neuro deficit Cranial nerves: Yes Equal, round and reactive pupils present Cognition (Neuro): normal cognition Gait exam (Neuro): Normal gait present Sensory Exam: No Sensory deficit (Neuro) Psych Appearance: grossly normal Affect: normal affect Attitude: cooperative Thought process: Normal thought process present Coding Level of Care Code Est Pt Level 3 (77149) Diagnoses Generalized anxiety disorder F41.1 Panic attack F41.0 High blood pressure I10 Additional Codes ROSELYN-7 Assessment Billing - ROSELYN-7 Assessment Tool: ROSELYN-7 Assessment 82390 ([id number]) PHQ-9 - 89125 - PHQ-9 Billing: Yes ([id number]) Assessment & Plan Assessment & Plan (1) Generalized anxiety disorder: Code(s): F41.1 - Generalized anxiety disorder Category: Medical Plan: Controlled anxiety and depressive symptoms on current treatment regimen. PHQ-9 and ROSELYN-7 scores revealed mild depression and anxiety. Continue current treatment regimen. Fast for 10-12 hours, may drink water, and perform lipid panel blood work 2-3 days before next visit. Follow-up later this month as planned or sooner with symptoms or concerns. Verbalized understanding and agreed with treatment plan. Paid Leave paperwork modified per patient's employer's request and will be scanned in his chart. (2) Panic attack: Code(s): F41.0 - Panic disorder [episodic paroxysmal anxiety] Category: Medical Plan: Plan as above. (3) High blood pressure: Code(s): I10 - Essential (primary) hypertension Category: Medical Plan: Blood pressure is 136/74, within goal of less than 140/90. Continue current treatment regimen. Will continue to monitor. Verbalized understanding and agreed with the plan.
[2024-11-28 14:51] VITALS: BP 136/74; PULSE 63; RESP 16; TEMP 36.3; O2SAT 99; BMI 32.5
--- OUTSIDE RECORDS SUMMARY | 2024-11-28 15:38 | XMS_ITS | Clinical Summary ---
Author Organization [facility] Address [address] [place] [address] Care Team Providers Care Burner Technician Name Role Phone Barbara Schilling Primary Care Provider Allergies Active Allergy Reactions Criticality Noted Date Comments Sertraline Delirium/Confusion/P sychosis,O ther (See Comments) Low 07/29/2015 Hallucinations Medications Medication Sig Dispensed Refills Start Date End Date Status aspirin 81 MG chewable tablet Chew 81 mg daily. Active atorvastatin (LIPITOR) 10 MG tablet Take 10 mg by mouth daily. Active diltiazem (CARDIZEM CD) 120 MG 24 hr capsule Take 120 mg by mouth daily. Active losartan (COZAAR) 25 MG tablet Take 25 mg by mouth daily. Active OMEprazole (PriLOSEC) 20 MG capsule Take 20 mg by mouth every morning before breakfast. Active PARoxetine (PAXIL-CR) 25 MG 24 hr tablet Take 62.5 mg by mouth every morning. Active pregabalin (LYRICA) 75 MG capsule Take 75 mg by mouth 2 (two) times a day. Active rivaroxaban (XARELTO) 20 MG tablet Take 20 mg by mouth every evening with dinner. Take with meals. Active clonazePAM (KlonoPIN) 0.5 MG tablet Take 0.5 mg by mouth 2 (two) times a day. 06/19/2020 Active fluticasone (FloNASE) 50 mcg/spray nasal spray 2 sprays daily. 04/29/2020 Active methocarbamol (ROBAXIN) 750 MG tablet TAKE ONE TABLET BY MOUTH THREE TIMES A DAY NEEDED FOR PAIN OR SPASM 06/19/2020 Active PANTOprazole (PROTONIX) 40 MG EC tablet 04/29/2020 Active mirtazapine (REMERON) 7.5 MG tablet 04/29/2020 Active potassium chloride (KLOR-CON) 10 MEQ tablet 04/29/2020 Active pregabalin (LYRICA) 150 MG capsule Take 1 capsule by mouth daily. 04/11/2020 Active traZODone (DESYREL) 50 MG tablet 04/29/2020 Active losartan (COZAAR) 50 MG tablet 05/05/2020 Active Active Problems Problem Noted Date Diagnosed Date Cellulitis 06/21/2020 Thrombophlebitis 06/21/2020 History of pulmonary embolism 06/21/2020 Social History Tobacco Use Types Packs/Day Years Used Date Smoking Tobacco: Never Assessed Sex and Gender Information Value Date Recorded Sex Assigned at Not on file Gender Identity Not on file Sexual Orientation Not on file Last Filed Vital Signs Vital Sign Reading Time Taken Comments Blood Pressure 108/59 06/21/2020 11:52 AM EDT Pulse 58 06/21/2020 11:52 AM EDT Temperature 36.8 ??C (98.3 ??F) 06/21/2020 11:52 AM E DT Respiratory Rate 18 06/21/2020 11:52 AM EDT Oxygen Saturation 96% 06/21/2020 11:52 AM EDT Inhaled Oxygen Concentration - - Weight - - Height - - Body Mass Index - - Plan of Treatment Health Maintenance Due Date Last Done Comments Hepatitis C Virus Screening 1977 HIV Screening 1990 DTaP/Tdap/Td Vaccines (1 - Tdap) 1996 Hepatitis B Vaccines (1 of 3 - 19+ 3-dose series) 1996 Colonoscopy 2022 Influenza Vaccine 05/11/2024 COVID-19 Vaccine ( - 2023-2 5 season) 2024 Pneumococcal Vaccine: Pediat camila (0-5 Years) and At-Risk Patients (6 to 49 Years) Aged Out No longer eligible b ased on patient's age to complete this topic Advance Directives * Full Code (Latest Code Status on File) Date Activated Date Inactivated Comments 06/21/2020 12:46 AM Question Answer Comments Decision Thoroughly Discussed with: Unable to Di scuss Care Teams Burner Technician Relationship Specialty Start Date End Date Barbara Schilling PA PCP - General 10/27/18
--- OUTSIDE RECORDS SUMMARY | 2024-11-28 15:38 | XMS_ITS | Clinical Summary ---
Author Organization [facility] Address [address] [place] [address] Care Team Providers Care Supervisor Functional Testing Name Role Phone Barbara Schilling PA-C Primary Care Provider [phone] Allergies Active Allergy Reactions Criticality Noted Date Comments Sertraline Other (See Comments) 07/29/2015 Hallucinations Medications Medication Sig Dispensed Refills Start Date End Date Status atorvastatin (LIPITOR) tablet 10 mgIndications:Hyper lipidemia Take 1 tablet (10 mg total) by mouth every night at bedtime. 90 tablet 3 01/22/2021 Active dilTIAZem (CARDIZEM CD) 120 MG 24 hr capsuleIndications: Hypertension Take 1 capsule (120 mg total) by mouth daily. 30 capsule 0 04/23/2021 Active losartan (COZAAR) tablet 50 mgIndications:Hyper tension Take 1 tablet (50 mg total) by mouth daily. 30 tablet 0 04/23/2021 Active traZODone (DESYREL) 50 MG tabletIndications:I nsomnia Take 1 tablet (50 mg total) by mouth every night at bedtime as needed for sleep (insomnia). 30 tablet 0 04/23/2021 Active Additional Information Patient not taking.Reason: Non adherence, Reported on 07/21/2021 Xarelto 20 MG TABS tabletIndications:D eep Vein Thrombosis Take 1 tablet (20 mg total) by mouth every evening. 30 tablet 0 04/23/2021 Active divalproex (Depakote) [address] tabletIndications:D epressive Phase Bipolar Mood Disorder Take 1 tablet (500 mg total) by mouth 2 (two) times a day. 60 tablet 0 04/23/2021 Active PARoxetine (PAXIL) 10 MG tabletIndications:G eneralized Anxiety Disorder,Major Depressive Disorder Take 5 tablets (50 mg total) by mouth daily. 60 tablet 2 04/24/2021 Active risperiDONE (RisperDAL) 1 MG tabletIndications:M ajor Depressive Disorder Take 1 tablet (1 mg total) by mouth every night at bedtime. 30 tablet 0 04/23/2021 Active folic acid (FOLVITE) tablet 1 mgIndications:suppl ement Take 1 tablet (1 mg total) by mouth daily. 30 tablet 0 04/24/2021 Active Additional Information Patient not taking.Reason: Non adherence, Reported on 07/21/2021 thiamine mononitrate (THIAMINE) 100 MG tabletIndications:s upplement Take 1 tablet (100 mg total) by mouth daily. 30 tablet 0 04/24/2021 Active Additional Information Patient not taking.Reason: Non adherence, Reported on 07/21/2021 nicotine (NICODERM CQ) 21 MG/24HRIndications: Nicotine Dependence Place 1 patch onto the skin daily. 28 patch 0 04/24/2021 Active Additional Information Patient not taking.Reason: Other, Reported on 07/24/2021 nicotine polacrilex (NICORETTE) 2 MG gumIndications:Jarvis anita Dependence Use as directed 1 each (2 mg total) in the mouth or throat every hour as needed for smoking cessation (Nicotine craving). 100 each 0 04/23/2021 Active Additional Information Patient not taking.Reason: Other, Reported on 07/24/2021 busPIRone (BUSPAR) 5 MG tablet TAKING 10MG BID 0 06/20/2021 Active omeprazole (PriLOSEC) 20 MG capsule Take 1 capsule (20 mg total) by mouth daily. 90 capsule 0 10/31/2021 Active omeprazole (PriLOSEC) 20 MG capsule TAKE ONE CAPSULE BY MOUTH EVERY DAY 90 capsule 1 10/31/2021 Active omeprazole (PriLOSEC) 20 MG capsule TAKE ONE CAPSULE BY MOUTH ONCE DAILY 90 capsule 0 04/30/2022 Active Active Problems Problem Noted Date Diagnosed Date Severe episode of recurrent major depressive disorder, with psychotic features 04/21/2021 MDD (major depressive disord er), recurrent severe, without psychosis 04/18/2021 Bipolar 1 disorder, mixed, partial remission Marijuana use 04/26/2020 Other mixed anxiety disorders 04/26/2020 Recurrent major depressive disorder, in remissio n 07/24/2019 Hypercoagulable state, indef iniety anticoagulation with NOAC indicated (hematology eval [place] 03/01/2018) 03/11/2018 Overview: Per hematology evaluation at [place] on 03/01/[address] Lozano, no evidence for congenital or acquired thrombophilic disease. 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% on labs 01/2018; factor VIII procoagulant activity levels greater than 200% statistically associated with increased risk of venous thromboembolic disease; factor VIII is an acute phase reactant (may be elevated and chronic inflammatory disease, chronic infectious disease, ) History of stroke 11/10/2017 History of pulmonary embolism 11/10/2017 Gilbert's syndrome 09/09/2017 Coronary artery disease invo lving [place] coronary artery of [place] heart without angina pectoris 09/04/2017 H/O gastroesophageal reflux (GERD) 09/04/2017 unprovoked/idiopathic R gastroc DVT 08/28/2017 1 11/04/2016 Bilateral pulmonary embolism, unprovoked 017 09/04/2017 Overview: [facility] pulmonary infarction 09/04/2017 Apical mural thrombus s/p CT 08/04/2017 Overview: From [place] history OV [place] TELLEZ 08/26/2017 Echo 08/26/2017: no thrombus; EF 50-55% PVC's: profuse ventricular e ctopy Holter 07/2017 (16% PVCs incl triplets) 08/04/2017 Tic 09/29/2016 Hyperesthesia 04/08/2016 Cerebrovascular accident (CV A) due to occlusion of cerebral artery (HCC) 201412/18/2015 Overview: During cardiac cath 2014 Dyspnea on exertion 09/12/2015 PSVT (paroxysmal supraventricular tachycardia) 1 11/13/2014 Aphasia 07/26/2015 Coronary vasospasm 07/23/2015 Acute STEMI (vasospastic vs thromboembolic) 201407/23/2015 Overview: Question vasospastic versus thromboembolic Abnormal nuclear stress test 07/15/2015 Essential hypertension 05/13/2015 abnormal EKG (small inferior Q waves 08/26/2017) 05/13/2015 Pure hypercholesterolemia 05/13/2015 Panic disorder 04/24/2015 Insomnia 03/27/2015 Resolved Problems Problem Noted Date Diagnosed Date Resolved Date Near syncope 08/04/2017 09/04/2017 Anticoagulation adequate 04/08/2016 Cerebral infarction due to t hrombosis of precerebral artery 08/01/2015 12/03/2015 Palpitations: eval [place] w Ho lter 07/2017, profuse ventricular ectopy 05/13/2015 09/04/2017 Immunizations Name Administration Dates Next Due Adacel (Tdap) 01/31/2019 Influenza Quad (Afluria/Fluz one) 0.5mL >=6mon Vial (SD-IIV4) 09/14/2019,07/20/2018 Influenza Quad (Fluarix/Fluz one/FluLaval) 0.5mL (SD-IIV4) 07/28/2021 Influenza Quad (Flucelvax) 0.5mL >6mon (ccIIV4) 08/27/2017 Family History Medical History Relation Name Comments Hypertension Brother 1 Stroke Brother 1 Hypertension Brother 2 No Sig Med Hx Daughter Heart disease Father lung cancer, s moker Hypertension Father Hypertension Maternal Grandfather Diabetes Maternal Grandmother Hypertension Maternal Grandmother Hypertension Mother Heart attack Paternal Aunt Hypertension Sister 1 Hypertension Sister 2 Hypertension Sister 3 Hypertension Sister 4 youngest, 1985 No Sig Med Hx Son Relation Name Status Comments Brother 1 Alive Brother 2 Alive Daughter Alive Father Maternal Grandfather Maternal Grandmother Mother Alive Paternal Aunt Sister 1 Alive Sister 2 Alive Sister 3 Alive Sister 4 Alive Son Alive Social History Tobacco Use Types Packs/Day Years Used Date Smoking Tobacco: Every Day Cigarettes 0.5 1.5 Last attempted to quit: 07/23/2006 Smokeless Tobacco: Never Tobacco Cessation:Ready to Q uit: No; Counseling Given: Yes Alcohol Use Standard Drinks/Week Comments Not Currently 0 (1 standard drink = 0.6 oz pur e alcohol) Sex and Gender Information Value Date Recorded Sex Assigned at Male 06/05/2020 7:19 PM EDT Gender Identity Male 06/05/2020 7:19 PM EDT Sexual Orientation Straight 06/05/2020 7: 19 PM EDT Job Start Date Occupation Industry Not on file Not on file Not on file Last Filed Vital Signs Vital Sign Reading Time Taken Comments Blood Pressure 125/75 03/26/2022 3:01 PM EDT Pulse 68 03/26/2022 3:01 PM EDT Temperature 36.6 ??C (97.9 ??F) 03/26/2022 3:01 PM ED T Respiratory Rate 18 03/26/2022 3:01 PM EDT Oxygen Saturation 96% 03/26/2022 3:01 PM EDT Inhaled Oxygen Concentration - - Weight 104.3 kg (230 lb) 03/26/2022 10:50 AM EDT Height 177.8 cm (5' 10 ) 03/26/2022 10:50 AM EDT Body Mass Index 33 03/26/2022 10:50 AM EDT Plan of Treatment Health Maintenance Due Date Last Done Comments Hepatitis B Vaccines (1 of 3 - 3-dose series) 1977 Hepatitis C Screening 1977 COVID-19 Vaccine (#1) 05/02/1978 Pneumococcal Vaccine (1 of 2 - PCV) 1983 Depression Screening 1989 BMI Counseling 11/08/2019 11/08/2018, 10/25/2018 Tobacco Cessation Counseling 04/18/2022 04/18/2021 Preventative Health Evaluation 07/24/2022 07/24/2021 Colon Cancer Screening (Colonoscopy) 2022 Influenza Vaccine (#1) 2024 , 09/14/2019, 07/20/2018, Additional history exists DTap / Tdap / Td (2 - Td or Tdap) 01/31/2029 01/31/2019 RSV Ped < 20 months Aged Out No longe r eligible based on patient's age to complete this topic Advance Directives For more information, please contact: [phone] Documents on File Type Date Recorded Patient [employer] Expl anation Advance Directive and Living Will 12/13/2015 11:48 AM Latest Code Status on File Code Status Date Activated Date Inactivated Comments Full Code 04/18/2021 3:18 PM 04/23/2021 5:39 PM This c ode status was ascertained in the following way: per unit protocol. Code Status History Code Status Date Activated Date Inactivated Comments Full Code 04/26/2020 12:45 AM 04/29/2020 6:56 PM Thi s code status was ascertained in the following way: per unit protocol. Full Code 07/24/2019 8:32 PM 07/31/2019 9:09 PM Thi s code status was ascertained in the following way: per unit protocol. Full Code 07/23/2015 9:58 AM 07/31/2015 5:51 PM Thi s code status was ascertained in the following way: per unit protocol. Care Teams Supervisor Functional Testing Relationship Specialty Start Date End Date Barbara Schilling PA-C PCP - General Corrections Nurse 08/27/17
--- OUTSIDE RECORDS SUMMARY | 2024-11-28 15:41 | XMS_ITS | Encounter Summary ---
Author Organization [facility] and [facility] Address [address] [place] [phone] Care Team Providers Care Toe Former Name Role Phone Barbara Schilling Primary Care Provider Reason for Visit * Reason Comments Medication Refill Encounter Details Date Type Department Care Team ([facility] st Contact Info) Description 05/15/2024 Refill Cardiovascular Medicine at [address] [place] [address] 2 [facility] [address] [place] [address] Valentino Carrasco MD [address] [phone] Medication Refill Social History Tobacco Use Types Packs/Day Years Used Date Smoking Tobacco: Every Day Cigarettes 0.5 6.1 Started: 10/11/2018 Smokeless Tobacco: Never Alcohol Use Standard Drinks/Week Comments Yes 0 (1 standard drink = 0.6 oz pur e alcohol) rare PHQ-2 Answer Date Recorded PHQ-2 Score 0 04/16/2019 Sex and Gender Information Value Date Recorded Sex Assigned at Not on file Legal Sex Male 10:21 AM EDT Gender Identity Not on file Sexual Orientation Not on file documented as of this encounter Miscellaneous Notes * Telephone Encounter - Maggie Contreras LPN - 05/16/2024 10:37 AM EDT This patient has not been seen since 04/2022. No future OV. documented in this encounter Plan of Treatment Not on file documented as of this encounter Visit Diagnoses Not on filedocumented in this encounter Additional Health Concerns Assessment Noted Time PHQ-9 Depression Total Score: 0 12/28/19 19 10:19 AM EDT documented as of this encounter Care Teams Toe Former Relationship Specialty Start Date End Date Barbara Schilling PA [address] [place] [phone] PCP - General 08/26/17 documented as of this encounter
--- OUTSIDE RECORDS SUMMARY | 2024-11-28 15:41 | XMS_ITS | Clinical Summary ---
Author Organization [facility] Address [address] [place] [address] Care Team Providers Care Tank Maker Wood Name Role Phone Barbara Schilling Primary Care Provider [phone] Surgical History Surgery Date Site/Laterality Comments UPPER GASTROINTESTINAL ENDOSCOPY PROCEDURE:UPPER GASTROINTESTINAL ENDOSCOPY CARDIAC CATHETERIZATION 07/23/2015 N/A PROCEDURE:CARDIAC CATHETERIZATION;COMMENT:Proce dure: LEFT HEART CATHETERIZATION ? PTCA , CORONARY ANGIO , FEMORAL; Surgeon: Colleen Jaeger MD; Location: [facility]; Service: Cardiology; Laterality: N/A; Medical History Medical History Date Comments Hypertension DX:Hypertension Pure hypercholesterolemia DX:Pur e hypercholesterolemia Paroxysmal supraventricular tachycardia (CMS/HCC) DX:Paroxysmal supraventricul ar tachycardia (HCC) Obesity DX:Obesity Insomnia DX:Insomnia GERD (gastroesophageal reflu x disease) DX:GERD (gastroesophageal re flux disease) Sleep apnea, obstructive DX:Slee p apnea, obstructive;COMMENT:wears CPAP Anxiety DX:Anxiety Panic disorder DX:Panic disorde r Depression DX:Depression History of myocardial perfusion scan 07/10/15 DX:History of myocardial perfusion scan;COMMENT:Anterior wall reversible ischemia Status post coronary angiogram 07/23/15 D X:Status post coronary angiogram;COMMENT:Normal coronary arteries, vasovagal response to intra-arterial sheath placement, NSVT with LV pressure regimen, brief 2-1 AV block and junctional rhythm 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 65 percent, normal RV systolic function, moderate sized pedunculated multilobular LV mass, mobile, located along septum History of stroke 09/29/2016 DX:History of stroke Hx of myocardial infarction 08/04/2017 DX:H x of myocardial infarction Hyperlipidemia 09/12/2015 DX:Hyperlipidemi a Pulmonary embolism (CMS/HCC) DX: Pulmonary embolism (HCC) DVT (deep venous thrombosis) ([facility]) DX:DVT (deep venous thrombos is) ([facility]) Family History Medical History Relation Name Comments Hypertension Brother 1 Stroke Brother 1 Hypertension Brother 2 No Known Problems Daughter Heart disease Father lung cancer, s moker Hypertension Father Heart attack Father's Sister Hypertension Maternal Grandfather Diabetes Maternal Grandmother Hypertension Maternal Grandmother Hypertension Mother Hypertension Sister 1 Hypertension Sister 2 Hypertension Sister 3 Hypertension Sister 4 youngest, 1985 No Known Problems Son Relation Name Status Comments Brother 1 Alive Brother 2 Alive Daughter Alive Father Father's Sister Maternal Grandfather Maternal Grandmother Mother Alive Sister 1 Alive Sister 2 Alive Sister 3 Alive Sister 4 Alive Son Alive Social History Tobacco Use Types Packs/Day Years Used Date Smoking Tobacco: Every Day Cigarettes Last attempted to quit: 07/23/2006 Smokeless Tobacco: Never Alcohol Use Standard Drinks/Week Comments Not Currently 0 (1 standard drink = 0.6 oz pur e alcohol) Sex and Gender Information Value Date Recorded Sex Assigned at Not on file Legal Sex Male 8:52 PM EST Gender Identity Not on file Sexual Orientation Not on file Obstetrics History Plan of Treatment Health Maintenance Due Date Last Done Comments Hepatitis B Vaccines (1 of 3 - 19+ 3-dose series) 1996 Pneumococcal Vaccine: Pediatrics (0 to 5 Years) and At-Risk Patients (6 to 64 Years) (1 of 2 - PCV) 1996 Colorectal Cancer Screening: Colonoscopy 09/12/2022 Depression Screening 09/12/2022 HIV Screening 09/12/2022 Hepatitis C Screening 09/12/2022 Social Influencers of Health Screening 09/12/2022 Hypertension/CHF/CAD Annual BMP Blood Test 03/26/2023 03/26/2022, 03/26/2022, 04/20/2021, Additional history exists COVID-19 Vaccine (1 - 2023- season) 2024 Influenza Vaccine (#1) 2024 , 09/14/2019, 07/20/2018, Additional history exists Cholesterol Screening (Lipid Panel) 07/28/2024 07/28/2019 DTaP,Tdap,and Td Vaccines (2 - Td or Tdap) 01/31/2029 01/31/2019 HIB Vaccines Aged Out No longer eligi ble based on patient's age to complete this topic HPV Vaccines Aged Out No longer eligi ble based on patient's age to complete this topic Hepatitis A Vaccines Aged Out No long er eligible based on patient's age to complete this topic IPV Vaccines Aged Out No longer eligi ble based on patient's age to complete this topic MMR Vaccines Aged Out No longer eligi ble based on patient's age to complete this topic Meningococcal ACWY Vaccine Aged Out N o longer eligible based on patient's age to complete this topic Meningococcal B Vacine Aged Out No lo nger eligible based on patient's age to complete this topic RSV Immunization Patients Under 20 months Aged Out No longer eligible based on patient's age to complete this topic Varicella Vaccines Aged Out No longer eligible based on patient's age to complete this topic Care Teams Tank Maker Wood Relationship Specialty Start Date End Date Barbara Schilling PA PCP - General Director Bioinformatics 08/27/17
--- OUTSIDE RECORDS SUMMARY | 2024-11-28 15:41 | XMS_ITS | Encounter Summary ---
Author Organization [facility] and [facility] Address [address] [place] [phone] Care Team Providers Care Accounts Receivable Processor Name Role Phone Barbara Schilling Primary Care Provider [phone] Encounter Details Date Type Department Care Team (Late st Contact Info) Description 06/15/2017 Scanned Document Cardiovascular Medicine at [address] [place] [phone] External, Provider Social History Tobacco Use Types Packs/Day Years Used Date Smoking Tobacco: Never Assessed Sex and Gender Information Value Date Recorded Sex Assigned at Not on file Legal Sex Male 10:21 AM EDT Gender Identity Not on file Sexual Orientation Not on file documented as of this encounter Plan of Treatment Not on file documented as of this encounter Procedures Procedure Name Priority Date/Time Associated Diagnosis Comments CARDIAC EKG RESULT SCAN Routine 12/08/2016 CARDIAC ECHO RESULT SCAN Routine 04/28/2016 documented in this encounter Results * Cardiac EKG Result Scan (12/08/2016) Provider External CV CARDIAC REPORT (CVR) Final Result * Cardiac Echo Result Scan (04/28/2016) us Provider External CV CARDIAC REPORT (CVR) Final Result documented in this encounter Visit Diagnoses Not on filedocumented in this encounter Care Teams Accounts Receivable Processor Relationship Specialty Start Date End Date Barbara Schilling PA [address] [place] [phone] PCP - General 08/26/17 documented as of this encounter
--- OUTSIDE RECORDS SUMMARY | 2024-11-28 15:41 | XMS_ITS | Encounter Summary ---
Author Organization [facility] and [facility] Address [address] [place] [phone] Care Team Providers Care Vegetable Farmworker Name Role Phone Barbara Schilling Primary Care Provider [phone] Encounter Details Date Type Department Care Team ([facility] st Contact Info) Description 08/09/2017 Scanned Document Cardiovascular Medicine at [address] [place] [address] Vadim Schaeffer MD [address] [place] [phone] Social History Tobacco Use Types Packs/Day Years Used Date Smoking Tobacco: Never Smokeless Tobacco: Never Sex and Gender Information Value Date Recorded Sex Assigned at Not on file Legal Sex Male 10:21 AM EDT Gender Identity Not on file Sexual Orientation Not on file documented as of this encounter Plan of Treatment Not on file documented as of this encounter Procedures Procedure Name Priority Date/Time Associated Diagnosis Comments CARDIAC HOLTER RESULT SCAN Routine 08/05/2017 documented in this encounter Results * Cardiac Holter Result Scan (08/05/2017) us Vadim Schaeffer MD CV CARDIAC REPORT (CVR) F inal Result documented in this encounter Visit Diagnoses Not on filedocumented in this encounter Care Teams Vegetable Farmworker Relationship Specialty Start Date End Date Barbara Schilling PA [address] [place] [phone] PCP - General 08/26/17 documented as of this encounter
--- OUTSIDE RECORDS SUMMARY | 2024-11-28 15:41 | XMS_ITS | Encounter Summary ---
Author Organization [facility] and [facility] Address [address] [place] [phone] Care Team Providers Care Asphalt Mixing Machine Operator Name Role Phone Barbara Schilling Primary Care Provider [phone] Encounter Details Date Type Department Care Team ([facility] st Contact Info) Description 09/20/2017 Scanned Document [facility] Health Information Management [address] [place] [phone] External, Provider Social History Tobacco Use Types [...] Procedure Name Priority Date/Time Associated Diagnosis Comments LAB SCAN Routine 09/20/2017 documented in this encounter Results * Lab Scan (09/20/2017) Blood specimen (specimen) us Provider External LAB BLOOD ORDERABLES Final Res ult documented in this encounter Visit Diagnoses Not on filedocumented in this encounter Additional Health Concerns Assessment Noted Time PHQ-9 Depression Total Score: 0 08/26/20 17 11:46 AM EST documented as of this encounter Care Teams Asphalt Mixing Machine Operator Relationship Specialty Start Date End Date Barbara Schilling PA [address] [place] [phone] PCP - General 08/26/17 documented as of this encounter
--- OUTSIDE RECORDS SUMMARY | 2024-11-28 15:41 | XMS_ITS | Encounter Summary ---
Author Organization [facility] and [facility] Address [address] [place] [phone] Care Team Providers Care Manager Managed Backup Services Name Role Phone Barbara Schilling Primary Care Provider [phone] Encounter Details Date Type Department Care Team ([facility] st Contact Info) Description 02/03/2018 Scanned Document [facility] Health Information Management [address] [place] [phone] External, Provider Social History Tobacco Use Types Packs/Day Years Used Date Smoking Tobacco: Former Smokeless Tobacco: Never Alcohol Use Standard Drinks/Week Comments Yes 0 (1 standard drink = 0.6 oz pur e alcohol) rare Sex and Gender Information Value Date Recorded Sex Assigned at Not on file Legal Sex Male 10:21 AM EDT Gender Identity Not on file Sexual Orientation Not on file documented as of this encounter Plan of Treatment Not on file documented as of this encounter Procedures Procedure Name Priority Date/Time Associated Diagnosis Comments LAB SCAN Routine 02/03/2018 documented in this encounter Results * Lab Scan (02/03/2018) Blood specimen (specimen) us Provider External LAB BLOOD ORDERABLES Final Res ult documented in this encounter Visit Diagnoses Not on filedocumented in this encounter Additional Health Concerns Assessment Noted Time PHQ-9 Depression Total Score: 0 08/26/20 17 11:46 AM EST documented as of this encounter Care Teams Manager Managed Backup Services Relationship Specialty Start Date End Date Barbara Schilling PA [address] [place] [phone] PCP - General 08/26/17 documented as of this encounter
--- OUTSIDE RECORDS SUMMARY | 2024-11-28 15:41 | XMS_ITS | Encounter Summary ---
Author Organization [facility] and [facility] Address [address] [place] [phone] Care Team Providers Care Audioprosthologist Name Role Phone Barbara Schilling Primary Care Provider Reason for Visit * Reason Comments Medication Refill Encounter Details Date Type Department Care Team ([facility] st Contact Info) Description 07/02/2022 Refill Cardiovascular Medicine at [address] [place] [address] Vadim Schaeffer MD [address] [place] [phone] Medication Refill Social History Tobacco Use Types [...] documented as of this encounter Care Teams Audioprosthologist Relationship Specialty Start Date End Date Barbara Schilling PA [address] [place] [address], [place] [phone] PCP - General 08/26/17 documented as of this encounter
--- OUTSIDE RECORDS SUMMARY | 2024-11-28 15:41 | XMS_ITS | Encounter Summary ---
Author Organization [facility] and [facility] Address [address] [place] [phone] Care Team Providers Care Evaluator Transfer Students Name Role Phone Barbara Schilling Primary Care Provider [phone] Encounter Details Date Type Department Care Team ([facility] st Contact Info) Description 09/27/2017 Scanned Document Cardiovascular Medicine at [address] [place] [phone] Vadim Schaeffer MD [address] [place] [phone] Social History Tobacco Use Types Packs/Day Years [...] Date/Time Associated Diagnosis Comments LAB SCAN Routine 09/17/2017 documented in this encounter Results * Lab Scan (09/17/2017) Blood specimen (specimen) us Vadim Schaeffer MD LAB BLOOD ORDERABLES Lexie l Result documented in this encounter Visit Diagnoses Not on filedocumented in this encounter Additional Health Concerns Assessment Noted Time PHQ-9 Depression Total Score: 0 08/26/20 17 11:46 AM EST documented as of this encounter Care Teams Evaluator Transfer Students Relationship Specialty Start Date End Date Barbara Schilling PA [address] [place] [address], [place] [phone] PCP - General 08/26/17 documented as of this encounter
--- OUTSIDE RECORDS SUMMARY | 2024-11-28 15:41 | XMS_ITS | Encounter Summary ---
Author Organization [facility] and [facility] Address [address] [place] [phone] Care Team Providers Care Apprentice Painter Neckties Name Role Phone Barbara Schilling Primary Care Provider [phone] Reason for Visit * Reason Comments Medication Refill Encounter Details Date Type Department Care Team ([facility] st Contact Info) Description 06/24/2021 Refill Cardiovascular Medicine at [address] [place] [phone] Vadim Schaeffer MD [address] [place] [phone] Medication Refill Social History Tobacco Use [...] encounter Miscellaneous Notes * Telephone Encounter - Wes Givens RN - 06/24/2021 4:17 PM EDT Refill verified and pended to documented in this encounter Plan of Treatment Not on file documented as of this encounter Visit Diagnoses Not on filedocumented in this encounter Additional Health Concerns Assessment Noted Time PHQ-9 Depression Total Score: 0 12/28/19 10:19 AM EDT documented as of this encounter Care Teams Apprentice Painter Neckties Relationship Specialty Start Date End Date Barbara Schilling PA [address] [place] [phone] PCP - General 08/26/17 documented as of this encounter
--- OUTSIDE RECORDS SUMMARY | 2024-11-28 15:41 | XMS_ITS | Encounter Summary ---
Author Organization [facility] and [facility] Address [address] [place] [phone] Care Team Providers Care Isotope Technician Name Role Phone Barbara Schilling Primary Care Provider [phone] Reason for Visit * Reason Comments Medication Refill Encounter Details Date Type Department Care Team ([facility] st Contact Info) Description 06/27/2021 Refill Cardiovascular Medicine at [address] [place] [address] Vadim Schaeffer MD [address] [place] [phone] Medication Refill Social History Tobacco Use [...] documented as of this encounter Care Teams Isotope Technician Relationship Specialty Start Date End Date Barbara Schilling PA [address] [place] [address], [place] [phone] PCP - General 08/26/17 documented as of this encounter
--- OUTSIDE RECORDS SUMMARY | 2024-11-28 15:41 | XMS_ITS | Encounter Summary ---
Author Organization [facility] and [facility] Address [address] [place] [phone] Care Team Providers Care Drag Down Name Role Phone Barbara Schilling Primary Care Provider [phone] Encounter Details Date Type Department Care Team (Late st Contact Info) Description 11/21/2018 Scanned Document Cardiovascular Medicine at [address] [place] [phone] External, Provider Social History Tobacco Use Types [...] Assessment Noted Time PHQ-9 Depression Total Score: 1 02/16/20 18 11:55 AM EDT documented as of this encounter Care Teams Drag Down Relationship Specialty Start Date End Date Barbara Schilling PA [address] [place] [phone] PCP - General 08/26/17 documented as of this encounter
== END 2024-11-28 15:47 | disposition home or self-care (01) ==
PROVIDERS: PCP Nurse Practitioner Family; Visit Provider Nurse Practitioner Family
DX: F41.1 Generalized anxiety disorder (principal); F41.0 Panic disorder [episodic paroxysmal anxiety]; I10 Essential (primary) hypertension

== ENCOUNTER → 2024-11-28 14:38 | Outpatient (BNVA) | payer OTHER, SELFPAY | PROVIDERS: PCP Nurse Practitioner Family; Visit Provider Nurse Practitioner Family | DX: F41.1 Generalized anxiety disorder (principal); F41.0 Panic disorder [episodic paroxysmal anxiety]; I10 Essential (primary) hypertension | CPT/HCPCS: 96127; 99212 ==

== ENCOUNTER 2024-12-07 09:41 | Outpatient (REF) | payer OTHER, SELFPAY ==
--- OUTSIDE RECORDS SUMMARY | 2024-12-07 11:04 | XMS_ITS | Encounter Summary ---
Author Organization [facility] and [facility] Address [address] [place] [phone] Care Team Providers Care Car Customizer Name Role Phone Barbara Schilling Primary Care Provider [phone] Reason for Visit * Reason Comments Medication Refill Encounter Details Date Type Department Care Team ([facility] st Contact Info) Description 05/15/2024 Refill Cardiovascular Medicine at [address] [place] [address] 2 [facility] [address] [place] [phone] Valentino Carrasco MD [address] [phone] Medication Refill Social History Tobacco Use Types Packs/Day Years Used Date Smoking Tobacco: Every Day Cigarettes 0.5 6.2 Started: 10/11/2018 Smokeless Tobacco: Never Alcohol Use [...] documented as of this encounter Care Teams Car Customizer Relationship Specialty Start Date End Date Barbara Schilling PA [address] [place] [phone] PCP - General 08/26/17 documented as of this encounter
--- OUTSIDE RECORDS SUMMARY | 2024-12-07 11:04 | XMS_ITS | Encounter Summary ---
Author Organization [facility] and [facility] Address [address] [place] [phone] Care Team Providers Care Concrete Mixer Loader Truck Mounted Name Role Phone Barbara Schilling Primary Care Provider [phone] Reason for Visit * Reason Comments Medication Refill Encounter Details Date Type Department Care Team ([facility] st Contact Info) Description 07/02/2022 Refill Cardiovascular Medicine at [address] [place] [phone] Vadim Schaeffer MD [address] [place] [phone] Medication Refill Social History Tobacco Use [...] documented as of this encounter Care Teams Concrete Mixer Loader Truck Mounted Relationship Specialty Start Date End Date Barbara Schilling PA [address] [place] [address], [place] [phone] PCP - General 08/26/17 documented as of this encounter
--- OUTSIDE RECORDS SUMMARY | 2024-12-07 11:04 | XMS_ITS | Encounter Summary ---
Author Organization [facility] and [facility] Address [address] [place] [phone] Care Team Providers Care Zinc Miner Name Role Phone Barbara Schilling Primary Care Provider [phone] Reason for Visit * Reason Comments Medication Refill Encounter Details Date Type Department Care Team ([facility] st Contact Info) Description 06/27/2021 Refill Cardiovascular Medicine at [address] [place] [phone] Vadim Schaeffer MD [address] [place] [phone] Medication Refill Social History Tobacco Use [...] documented as of this encounter Care Teams Zinc Miner Relationship Specialty Start Date End Date Barbara Schilling PA [address] [place] [address], [place] [phone] PCP - General 08/26/17 documented as of this encounter
--- OUTSIDE RECORDS SUMMARY | 2024-12-07 11:04 | XMS_ITS | Clinical Summary ---
Author Organization [facility] Address [address] [place] [address] Care Team Providers Care Senior Storage Administrator Name Role Phone Barbara Schilling Primary Care Provider [phone] Surgical History Surgery Date Site/Laterality Comments UPPER GASTROINTESTINAL ENDOSCOPY PROCEDURE:UPPER GASTROINTESTINAL ENDOSCOPY CARDIAC CATHETERIZATION 07/23/2015 N/A PROCEDURE:CARDIAC CATHETERIZATION;COMMENT:Proce dure: LEFT HEART CATHETERIZATION ? PTCA , CORONARY ANGIO , FEMORAL; Surgeon: Colleen Jaeger MD; Location: [facility] CARDIAC INTERMEDIATE TEACHER; Service: Cardiology; Laterality: N/A; Medical History Medical [...] 07/23/15 DX:Acute ST elevation myocar dial infarction ([facility]);COMMENT:Question vasospastic versus thromboembolic Acute CVA (cerebrovascular a ccident) (CMS/HCC) 07/23/15 DX:Acute CVA (cerebrovascula r accident) ([facility]);COMMENT:Left MCA History of echocardiogram 07/23/15 DX:His tory of echocardiogram;COMMENT:EF 55? 65 percent, normal RV systolic function, moderate sized pedunculated multilobular LV mass, mobile, located along septum History of stroke 09/29/2016 DX:History of stroke Hx of myocardial infarction 08/04/2017 DX:H x of myocardial infarction Hyperlipidemia 09/12/2015 DX:Hyperlipidemi a Pulmonary embolism (CMS/HCC) DX: Pulmonary embolism (HCC) DVT (deep venous thrombosis) ([facility]) DX:DVT (deep venous thrombos is) ([facility]) Family History Medical History Relation Name [...] age to complete this topic Care Teams Senior Storage Administrator Relationship Specialty Start Date End Date Barbara Schilling PA PCP - General Floral Arranger 08/27/17
--- OUTSIDE RECORDS SUMMARY | 2024-12-07 11:04 | XMS_ITS | Clinical Summary ---
Author Organization [address] Address [address] [place] [phone] Care Team Providers Care Materials Recycler Name Role Phone Barbara Schilling Primary Care Provider [phone] Allergies Active Allergy Reactions Criticality Noted Date Comments Sertraline Hallucinations 01/21/2018 Medications loratadine 10 mg Cap Take by mouth.. Acti ve omeprazole (PRILOSEC) 20 MG capsule Take by mouth.. 5 Active aspirin 81 mg EC delayed release tablet TAKE ONE TABLET BY MOUTH EVERY DAY 90 tablet 3 0 Active pregabalin (LYRICA) 50 mg capsule Take 1 capsule (50 mg total) by mouth 3 (three) times daily. Taking 300mg in divided doses 0 Active PARoxetine (PAXIL-CR) 25 mg 24 hr tablet 60 mg every morning. 90 tablet 3 1 Active atorvastatin (LIPITOR) 10 mg tablet TAKE ONE TABLET BY MOUTH EVERY DAY 90 tablet 3 1 Active Additional Information Patient not taking.Reported on 04/24/2022 busPIRone (BUSPAR) 15 mg tablet TAKE 1 TABLET BY MOUTH 3 TIMES DAILY 2 Active risperiDONE (RISPERDAL) 1 mg tablet TAKE ONE TABLET BY MOUTH AT BEDTIME 2 Active atorvastatin (LIPITOR) 10 mg tablet Take 1 tablet (10 mg total) by mouth daily. 90 tablet 3 2 Active XARELTO 20 mg tablet take 1 tablet by mouth once daily 90 tablet 2 3 Active dilTIAZem CD (CARDIZEM CD) 120 mg 24 hr capsule take 1 capsule by mouth once daily 90 capsule 3 3 Active losartan (COZAAR) 50 mg tablet take 1 tablet by mouth once daily 90 tablet 3 3 Active Active Problems Problem Noted Date Diagnosed Date Hyperbilirubinemia 01/21/2018 Near syncope 08/04/2017 Essential hypertension 08/04/2017 Hx of myocardial infarction 08/04/2017 PVC's (premature ventricular contractions) 08/04 Apical mural thrombus 08/04/2017 Pulmonary emboli August 28, 2017 Deep venous thrombosis of right leg August 28, 2017 Immunizations Name Administration Dates Next Due Influenza, injectable, MDCK, quad, preservative free 08/27/2017 Family History Medical History Relation Name Comments Stroke Brother Relation Name Status Comments Brother Social History Tobacco Use Types Packs/Day Years Used Date Smoking Tobacco: Every Day Cigarettes 0.5 6.2 Started: 10/11/2018 Smokeless Tobacco: Never Tobacco Cessation:Counseling Given: Yes Alcohol Use Standard Drinks/Week Comments Yes 0 [...] Sign Reading Time Taken Comments Blood Pressure 120/80 04/24/2022 1:46 PM EDT Pulse 96 04/24/2022 1:26 PM EDT Temperature 36.4 ??C (97.6 ??F) 06/18/2020 10:15 AM E DT Respiratory Rate 18 06/18/2020 10:15 AM EDT Oxygen Saturation 98% 04/24/2022 1:26 PM EDT Inhaled Oxygen Concentration - - Weight 102.1 kg (225 lb) 04/24/2022 1:26 PM EDT Height 177.8 cm (5' 10 ) 04/24/2022 1:26 PM EDT Body Mass Index 32.28 04/24/2022 1:26 PM EDT Plan of Treatment Health Maintenance Due Date Last Done Comments Pneumococcal Vaccine (2 - 49 years) (1 of 2 - PCV) 1983 HIV screening 1990 Hepatitis C screening 1995 Lipid disorder screening 2017 Colon cancer screening, Colonoscopy 2022 Diabetes screening 06/18/2023 06/18/2020 Influenza vaccine 05/11/2024 07/28/2021, , 07/20/2018, Additional history exists Covid-19 vaccine series (2023- season) 2024 03/06/2021, 02/06/2021 Tetanus adult (Td q 10,TDAP once) 01/31/2029 01/31/2019 RSV Discussion (1 - 1-dose 75+ series) 2052 Meningococcal Vaccine Aged Out No johnathan angella eligible based on patient's age to complete this topic Procedures Procedure Name Priority Date/Time Associated Diagnosis Comments BASIC METABOLIC PANEL STAT 06/18/2020 10:51 AM EDT from Last 3 Months or Most Recently Relevant to Health Maintenance Results * (ABNORMAL) Basic metabolic panel (06/18/2020 10:51 AM EDT) Sodium 141 136 - 144 mmol/L 06/18/2020 11:30 AM EDT [facility]PART[facility] OF LABORATORY MEDICINE Potassium 4.2 3.3 - 5.1 mmol/L 06/18/2020 11:30 AM EDT [facility] OF LAB[facility]ATORY MEDICINE Comment:Sample slightly hemo lyzed. Results may be falsely elevated due to hemolysis. Chloride 105 98 - 107 mmol/L 06/18/2020 11:30 AM EDT [facility] DEPARTMENT OF LABORATORY MEDICINE CO2 25 20 - 30 mmol/L 06/18/2020 11:30 AM EDT [facility] OF LAB[facility]ORY MEDICINE Anion Gap 11 7 - 17 06/18/2020 11:30 AM EDT [facility] LAB[facility]ORY MEDICINE Glucose 97 70 - 100 mg/dL 06/18/2020 11:30 AM EDT [facility] OF LAB[facility]ATORY MEDICINE BUN 6 6 - 20 mg/dL 06/18/2020 11:30 AM EDT [facility] OF LAB[facility]ORY MEDICINE Creatinine 0.90 0.40 - 1.30 mg/dL 06/18/2020 11:30 AM EDT [facility] OF LAB[facility]ATORY MEDICINE Calcium 9.1 8.8 - 10.2 mg/dL 06/18/2020 11:30 AM EDT [facility] DEPARTMENT OF LABORATORY MEDICINE BUN/Creatinine Ratio 6.7(L) 8.0 - 23.0 06/18/2020 11:30 AM EDT [facility] DEPARTMENT OF LABORATORY MEDICINE eGFR (Afr Amer) >60 >60 mL/min/1.7 3m2 06/18/2020 11:30 AM EDT [facility] DEPARTMENT OF LABORATORY MEDICINE Comment: Values under 60mL/min/1.73m2 may indicate CKD if noted for ?? more than 3 months. eGFR is only valid if creatinine is at steady state. eGFR (NON -Adali n) >60 >60 mL/min/1.7 3m2 06/18/2020 11:30 AM EDT [facility] DEPARTMENT OF LABORATORY MEDICINE Comment: Values under 60mL/min/1.73m2 may indicate CKD if noted for ?? more than 3 months. eGFR is only valid if creatinine is at steady state. Blood Venipuncture / Unknown 06/18/2020 10:51 AM EDT 06/18/2020 11:00 AM EDT Leonie [facility] LAB BLOOD ORDERABLES Final Result Performing Organization Address City/State/[facility] Co de Phone Number [facility] DEPARTMENT OF LABORATORY MEDICINE [address] [place] [address], [facility] [phone] from Last 3 Months or Most Recently Relevant to Health Maintenance Insurance [facility] BS BS Care Teams Materials Recycler Relationship Specialty Start Date End Date Barbara Schilling PA [address] [place] [phone] PCP - General 08/26/17
--- OUTSIDE RECORDS SUMMARY | 2024-12-07 11:04 | XMS_ITS | Encounter Summary ---
Author Organization [facility] Address [address] [place] [phone] Care Team Providers Care Senior Oracle Pl Sql Developer Name Role Phone Barbara Schilling Primary Care Provider [phone] Encounter Details Date Type Department Care Team ([facility] st Contact Info) Description 08/09/2017 Scanned Document Cardiovascular Medicine at [address] [place] [phone] Vadim Schaeffer MD [address] [place] [phone] Social History Tobacco Use Types Packs/Day Years [...] on filedocumented in this encounter Care Teams Senior Oracle Pl Sql Developer Relationship Specialty Start Date End Date Barbara Schilling PA [address] [place] [phone] PCP - General 08/26/17 documented as of this encounter
--- OUTSIDE RECORDS SUMMARY | 2024-12-07 11:04 | XMS_ITS | Encounter Summary ---
Author Organization [facility] and [facility] Address [address] [place] [phone] Care Team Providers Care Platform Engineer Name Role Phone Barbara Schilling Primary Care Provider [phone] Encounter Details Date Type Department Care Team ([facility] st Contact Info) Description 09/20/2017 Scanned Document [facility] Health Information Management [address] [place] [phone] External, Provider Social History Tobacco Use Types [...] documented as of this encounter Care Teams Platform Engineer Relationship Specialty Start Date End Date Barbara Schilling PA [address] [place] [phone] PCP - General 08/26/17 documented as of this encounter
--- OUTSIDE RECORDS SUMMARY | 2024-12-07 11:04 | XMS_ITS | Encounter Summary ---
Author Organization [facility] and [facility] Address [address] [place] [phone] Care Team Providers Care Taper/Finisher Name Role Phone Barbara Schilling Primary Care Provider [phone] Encounter Details Date Type Department Care Team ([facility] st Contact Info) Description 09/27/2017 Scanned Document Cardiovascular Medicine at [address] [place] [phone] Vadim Schaeffer MD [address] [place] [phone] Social History Tobacco Use Types Packs/Day Years [...] documented as of this encounter Care Teams Taper/Finisher Relationship Specialty Start Date End Date Barbara Schilling PA [address] [place] [address], [place] [phone] PCP - General 08/26/17 documented as of this encounter
--- OUTSIDE RECORDS SUMMARY | 2024-12-07 11:04 | XMS_ITS | Clinical Summary ---
Author Organization [facility] Address [address] [place] [address] Care Team Providers Care Front End Loader Driver Name Role Phone Barbara Schilling Primary Care [...] with: Unable to Di scuss Care Teams Front End Loader Driver Relationship Specialty Start Date End Date Barbara Schilling PA PCP - General 10/27/18
--- OUTSIDE RECORDS SUMMARY | 2024-12-07 11:04 | XMS_ITS | Encounter Summary ---
Author Organization [facility] Address [address] [place] [phone] Care Team Providers Care Art Framing Manager Name Role Phone Barbara Schilling Primary Care Provider [phone] Encounter Details Date Type Department Care Team ([facility] st Contact Info) Description 02/03/2018 Scanned Document [facility] Health Information Management [address] [place] [phone] External, Provider Social History Tobacco Use Types [...] documented as of this encounter Care Teams Art Framing Manager Relationship Specialty Start Date End Date Barbara Schilling PA [address] [place] [phone] PCP - General 08/26/17 documented as of this encounter
--- OUTSIDE RECORDS SUMMARY | 2024-12-07 11:04 | XMS_ITS | Encounter Summary ---
Author Organization [facility] and [facility] Address [address] [place] [phone] Care Team Providers Care Fish Protector Name Role Phone Barbara Schilling Primary Care Provider [phone] Encounter Details Date Type Department Care Team (Late st Contact Info) Description 06/15/2017 Scanned Document Cardiovascular Medicine at [address] [place] [phone] External, Provider Social History Tobacco Use Types [...] on filedocumented in this encounter Care Teams Fish Protector Relationship Specialty Start Date End Date Barbara cShilling PA [address] [place] [phone] PCP - General 08/26/17 documented as of this encounter
--- OUTSIDE RECORDS SUMMARY | 2024-12-07 11:04 | XMS_ITS | Encounter Summary ---
Author Organization [facility] and [facility] Address [address] [place] [phone] Care Team Providers Care Radiotelegraph Operator Name Role Phone Barbara Schilling Primary Care Provider Encounter Details Date Type Department Care Team (Late st Contact Info) Description 11/21/2018 Scanned Document Cardiovascular Medicine at [address] [place] [phone] External, Provider Social History Tobacco Use Types [...] documented as of this encounter Care Teams Radiotelegraph Operator Relationship Specialty Start Date End Date Barbara Schilling PA [address] [place] [phone] PCP - General 08/26/17 documented as of this encounter
--- OUTSIDE RECORDS SUMMARY | 2024-12-07 11:04 | XMS_ITS | Clinical Summary ---
Author Organization [facility] Address [address] [place] [address] Care Team Providers Care Computer Information Systems Professor Name Role Phone Barbara Schilling PA-C Primary Care Provider [phone] Allergies Active Allergy Reactions Criticality Noted Date [...] iniety anticoagulation with NOAC indicated (hematology eval [place] 03/01/2018) 03/11/2018 Overview: Per hematology evaluation at [place] on 03/01/[address] Lozano, no evidence [...] syndrome 09/09/2017 Coronary artery disease invo lving [place] coronary artery of [place] heart without angina pectoris 09/04/2017 H/O gastroesophageal reflux (GERD) 09/04/2017 unprovoked/idiopathic R gastroc DVT 08/28/2017 1 11/04/2016 Bilateral pulmonary embolism, unprovoked 017 09/04/2017 Overview: [facility] L pulmonary infarction 09/04/2017 Apical mural thrombus s/p [place] 08/04/2017 Overview: From [place] history OV [place] TELLEZ 08/26/2017 Echo 08/26/2017: [...] of precerebral artery 08/01/2015 12/03/2015 Palpitations: eval [place] w Ho lter 07/2017, profuse ventricular ectopy [...] Advance Directives For more information, please contact: [phone] Documents on File Type Date Recorded Patient Credit Risk Analytics Manager Expl anation Advance Directive and Living Will [...] following way: per unit protocol. Care Teams Computer Information Systems Professor Relationship Specialty Start Date End Date Barbara Schilling PA-C PCP - General Electron Gun Inspector 08/27/17
--- OUTSIDE RECORDS SUMMARY | 2024-12-07 11:04 | XMS_ITS | Encounter Summary ---
Author Organization [facility] and [facility] Address [address] [place] [phone] Care Team Providers Care Mate First Name Role Phone Barbara Schilling Primary Care Provider [phone] Reason for Visit * Reason Comments Medication Refill Encounter Details Date Type Department Care Team ([facility] st Contact Info) Description 06/24/2021 Refill Cardiovascular Medicine at [address] [place] [phone] Vadim Schaeffer MD [address] [place] [phone] Medication Refill Social History Tobacco Use [...] documented as of this encounter Care Teams Mate First Relationship Specialty Start Date End Date Barbara Schilling PA [address] [place] [phone] PCP - General 08/26/17 documented as of this encounter
[2024-12-07 12:32] LABS: Bilirubin Total 2.2 mg/dL (0.0-1.0); Cholesterol 123 mg/dL (<200); HDL Cholesterol 44 mg/dL (>40); LDL Cholesterol Calculated 62 mg/dL (<100); Triglycerides 86 mg/dL (<150)
== END 2024-12-07 09:42 | disposition home or self-care (01) ==
LOC: HO.WFDLDS 09:41
PROVIDERS: Visit Provider Nurse Practitioner Family
DX: I10 Essential (primary) hypertension (principal); E78.00 Pure hypercholesterolemia, unspecified; F31.9 Bipolar disorder, unspecified; F41.1 Generalized anxiety disorder; Z79.899 Other long term (current) drug therapy; E80.4 Gilbert syndrome
CPT/HCPCS: 36415; 80061; 82247; 96127; 99212

== ENCOUNTER 2024-12-07 13:12 | Outpatient (AMB) | payer OTHER, SELFPAY ==
--- NOTE | 2024-12-07 13:19 | A.OFFPC_ITS ---
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 Required: No Allergies zoloft Adverse Reaction (Severe, Uncoded 12/07/24 13:36) Hallucinations Medication List - Last Reconciled 12/07/24 by Patricia Montes CNP atorvastatin 20 mg PO DAILY 90 days carbamide peroxide 6.5% (Debrox) 5 drps otic (ears) DAILY 4 days diltiazem HCl CD 120 mg PO DAILY 90 days losartan 50 mg PO DAILY 90 days pantoprazole 40 mg PO DAILY 90 days pregabalin 150 mg PO BID 90 days propranolol 10 mg PO BID 30 days rivaroxaban (Xarelto) 20 mg PO DAILY 90 days Tobacco use date assessed: 12/07/24 Dental Screening Dental Screen Date: 12/07/24 Did you have a dental visit in the last 12 months?: Yes Did you have a dental problem in the last 6 months where you did not have access to dental care?: No Was dental information given to patient?: Patient has dentist HPI HPI Comments History of Present Illness Details 49-year-old male presents for hypertensi on and hypercholesterolemia follow-up. He admits to taking his medications as prescribed without adverse reactions, except for propranolol which he takes once daily. He notes that his mood has generally been well-controlled. He is followed by a therapist every other week. He was recently seen by a psychiatrist and abruptly left the visit because she wanted to prescribed Paxil only instead of other medications including benzo. He states that he continues to do well without psychotropic medications and does not need them at this time. He offers no complaints and denies acute symptoms at this time. [facility] Medical History (Updated 10/17/24 @ 16:45 by Patricia Montes CNP) Depression Anxiety Memory loss H/O blood clots Palpitation Stroke High cholesterol High blood pressure Family History (Updated 07/26/24 @ 09:10 by Wanda Dougherty MA) Father Alcohol abuse High blood pressure Cardiovascular disease Mother High blood pressure Maternal Grandmother Diabetes Maternal Grandfather Cardiovascular disease Other Gilbert syndrome Social History Housing: House Patient Tobacco Use Status: Current everyday Tobacco user Cigarette Packs Per Day: 10 Cigarettes Per Day: 10 e-Cigarette/Vaping Use: Currently Using Second Hand Smoke Exposure: No service: No Current occupational status: disabled Current occupational exposures/hazards: No Cognitive needs: Yes Hearing needs: No Vision needs: Yes Questionnaire PHQ-9 Over the last 2 weeks, how often have you been bothered by any of the following problems? 1. Little interest or pleasure in doing things: several days 2. Feeling down, depressed, or hopeless: several days 3. Trouble falling or staying asleep, or sleeping too much: several days 4. Feeling tired or having little energy: several days 5. Poor appetite or overeating: several days 6. Feeling bad about yourself - or that you are a failure or have let yourself or your family down: several days 7. Trouble concentrating on things, such as reading the newspaper or watching television: several days 8. Moving or speaking so slowly that other people could have noticed. Or the opposite - being so fidgety or restless that you have been moving around a lot more than usual: several days 9. Thoughts that you would be better off or of hurting yourself in some way: not at all Total score: 8 Depression Screening Interpretation: Positive Depression Screening Follow-up: Existing condition and In treatment Depression Screening Done: Yes 74244 - PHQ-9 Billing: Yes Source: Developed by Drs. Sergo Brady, Monse Nash, Tyler Casey and colleagues, with an educational lois from [employer]. Thrive Questionnaire Date Thrive assessed: 12/07/24 I am a: Patient What is your living situation today?: I have a steady place to live Within the past 12 months, did the food you bought not last and you didn't have the money to get more?: I choose not to answer this question Within the past 12 months, did you worry whether your food would run out before you got money to buy more?: I choose not to answer this question Do you have trouble paying for medicines?: I choose not to answer this question Do you have trouble getting transportation to medical appointments?: I choose not to answer this question Do you have trouble paying your heating and electricity bill?: I choose not to answer this question Do you have trouble taking care of your child, family member or friend?: I cho ose not to answer this question Do you have trouble with day-to-day activities such as bathing, preparing meals, shopping, managing finances, etc.?: I choose not to answer this question Are you currently unemployed and looking for a job?: I choose not to answer this question Are you interested in more education?: I choose not to answer this question Please select the resources that you would like help with: None THRIVE Score: 0 AUDIT C Alcohol Use Questionnaire (AUDIT-C) 1. How often do you have a drink containing alcohol?: Never Total Score: 0 ROSELYN-7 AMB Questionnaire ROSELYN-7 Date ROSELYN - 7 assessed: 12/07/24 Feeling nervous, anxious, or on edge: 1 = Several days Not being able to stop or control worryin = Several days Worrying too much about different things: 1 = Several days Trouble relaxin = Several days Being so restless that it is hard to sit still: 1 = Several days Becoming easily annoyed or irritable: 1 = Several days Feeling afraid as if something awful might happen: 1 = Several days Total ROSELYN-7 score (0-4 normal; 5-9 mild; 10-14 moderate; 15-21 severe): 7 Source: Developed by Drs. Sergo Brady, Monse Nash, Tyler Casey and colleagues, with an educational lois from [employer]. ROSELYN-7 Assessment Billing ROSELYN-7 Assessment Tool: ROSELYN-7 Assessment 44547 Review of Systems Const Details: Const Denies chills, Denies fatigue, Denies fever(s), Denies headache(s) and Denies weakness ENT Denies dizziness and Denies headache(s) Card Denies chest pain, Denies lightheadedness, Denies dyspnea and Denies other (Palpitations) Resp Denies cough, Denies dyspnea, Denies wheezing and Denies other ( shortness of breath) GI Denies abdominal pain, Denies melena, Denies hematochezia, Denies change in bowel habits, Denies dyspepsia and Denies nausea Denies hematuria and Denies dysuria Musc Denies abnormal gait, Denies myalgias, Denies arthralgias, Denies numbness and Denies tingling Skin/Breast Denies rash, Denies unusual bruising and Denies wounds Neuro Denies abnormal gait, Denies dizziness, Denies headache(s), Denies memory loss, Denies numbness, Denies Sensory deficit (Neuro), Denies tingling and Denies weakness Psych Denies anxiety, Denies depression, Denies memory loss Endo Denies cold intolerance, Denies fatigue, Denies heat intolerance, Denies polydipsia and Denies polyuria Aller/Immun Denies wheezing Physical exam (Primary Care) Vital Signs: Last Vital Signs Temp 98.0 F 12/07/24 13:23 Pulse 64 12/07/24 13:23 Resp 16 12/07/24 13:23 BP 156/85 H 12/07/24 13:23 Pulse Ox 99 12/07/24 13:23 Oxygen Delivery Method Room Air 12/07/24 13:23 BMI result Body Mass Index 31.9 Tobacco/Smoking Status: Tobacco use Status Tobacco use date assessed 12/07/24 12/07/24 13:31 Patient Tobacco Use Status Current everyday Tobacco 12/07/24 13:31 e-Cigarette/Vaping Use Currently Using 12/07/24 13:31 PHQ-9: PHQ-9 Score PHQ-9: Total score 9 12/07/24 13:31 Depression Screening Interpretation: Positive Depression Screening Follow-up: Existing condition and In treatment Thrive Assessment: Date of Thrive Assessment Date Thrive assessed 12/07/24 12/07/24 13:31 Const Other: General: no acute distress and well developed Nutritional Appearance: well nourished Orientation/consciousness: patient oriented x3 HENMT Head: Yes normocephalic and Yes atraumatic Eyes General: appearance normal, both eyes and all related structures Pupils: Equal, round and reactive pupils present EOM: EOMs intact bilaterally Resp Effort & Inspection: normal respiratory effort Auscultation: clear to auscultation bilaterally Cardio Rate: regular rate Rhythm: regular rhythm Heart sounds: S1 normal heart sound present, S2 normal heart sound present, no gallops, no murmurs and no rubs GI Palpation (GI): No Abdominal aortic bruit present, Soft to palpation, nontender, No hepatosplenomegaly present and No Rebound tenderness present Auscultation: normal bowel sounds General: Yes no CVA tenderness Back/Spine/Pelvis Back: no CVA tenderness Cervical Spine: cervical ROM normal and No Cervical spine tenderness Thoracic/Lumbar Spine: thoraco-lumbar ROM normal, No pain with thoraco-lumbar ROM, No thoracic spinal tenderness and No lumbar spinal tenderness Extrem General: Yes normal to inspection, No edema and No calf tenderness Skin General: warm and dry. Normal skin color. Normal skin turgor Neuro General: patient oriented x3, gait normal and no focal neuro deficit Cranial nerves: Yes Equal, round and reactive pupils present Cognition (Neuro): normal cognition Gait exam (Neuro): Normal gait present Sensory Exam: No Sensory deficit (Neuro) Psych Appearance: grossly normal Affect: normal affect Attitude: cooperative Thought process: Normal thought process present Coding Level of Care Code Est Pt Level 3 (34117) Diagnoses High blood pressure I10 Hypercholesterolemia E78.00 Bipolar 1 disorder F31.9 Generalized anxiety disorder F41.1 Additional Codes ROSELYN-7 Assessment Billing - ROSELYN-7 Assessment Tool: ROSELYN-7 Assessment 21010 ([id number]) PHQ-9 - 75267 - PHQ-9 Billing: Yes ([id number]) Assessment & Plan Assessment & Plan (1) High blood pressure: Code(s): I10 - Essential (primary) hypertension Category: Medical Plan: Resting blood pressure is 140/90, slightly above goal of less than 140/90. Continue to take diltiazem and losartan as prescribed. Advised to start taking propranolol twice daily as prescribed. Low-sodium diet encouraged. Follow-up in 1 month or sooner with symptoms or concerns. Verbalized understanding and agreed with treatment plan. (2) Hypercholesterolemia: Code(s): E78.00 - Pure hypercholesterolemia, unspecified Category: Medical Plan: Recent lipid panel level is normal. LDL improved to 62 from 117. Advised to limit foods high in saturated fat and avoid foods high trans fat. Routine exercise encouraged. Will monitor lipid panel level periodically or if he presents with related symptoms or concerns. Verbalized understanding and agreed with the treatment plan. (3) Bipolar 1 disorder: Code(s): F31.9 - Bipolar disorder, unspecified Category: Medical Plan: His mood has generally been well controlled. PHQ-9 and ROSELYN-7 scores revealed mild depression and anxiety. He was recently seen by a psychiatrist but abruptly left the visit and declined psychotropic medication. He is followed by a therapist. Routine exercise encouraged. Follow-up with worsening or new symptoms. Verbalized understanding and agreed with treatment plan. (4) Generalized anxiety disorder: Code(s): F41.1 - Generalized anxiety disorder Category: Medical Plan: Plan as above.
[2024-12-07 13:23] VITALS: BP 156/85; PULSE 64; RESP 16; TEMP 36.7; O2SAT 99; BMI 31.9
[2024-12-07 13:51] VITALS: BP 140/90
--- OUTSIDE RECORDS SUMMARY | 2024-12-07 15:47 | XMS_ITS | Clinical Summary ---
Author Organization [facility] Address [address] [place] [address] Care Team Providers Care Solderer Name Role Phone Barbara Schilling PA-C Primary Care Provider [phone] Allergies Active Allergy Reactions Criticality Noted Date [...] iniety anticoagulation with NOAC indicated (hematology eval [facility] 03/01/2018) 03/11/2018 Overview: Per hematology evaluation at [facility] on 03/01/[address] Lozano, no evidence [...] syndrome 09/09/2017 Coronary artery disease invo lving [place] coronary artery of [place] heart without angina pectoris 09/04/2017 H/O gastroesophageal reflux (GERD) 09/04/2017 unprovoked/idiopathic R gastroc DVT 08/28/2017 1 11/04/2016 Bilateral pulmonary embolism, unprovoked 017 09/04/2017 Overview: [facility] pulmonary infarction 09/04/2017 Apical mural thrombus s/p [place] 08/04/2017 Overview: From [facility] history OV [facility] TELLEZ 08/26/2017 Echo 08/26/2017: [...] of precerebral artery 08/01/2015 12/03/2015 Palpitations: eval [facility] w [facility] 07/2017, profuse ventricular ectopy [...] Advance Directives For more information, please contact: [phone] Documents on File Type Date Recorded Patient Customer Solutions Supervisor Expl anation Advance Directive and Living Will [...] following way: per unit protocol. Care Teams Solderer Relationship Specialty Start Date End Date Barbara Schilling PA-C PCP - General Lumber Marker 08/27/17
--- OUTSIDE RECORDS SUMMARY | 2024-12-07 15:47 | XMS_ITS | Clinical Summary ---
Author Organization [facility] Address [address] [place] [address] Care Team Providers Care Engagement Mgr Name Role Phone Barbara Schilling Primary Care Provider [phone] Allergies Active Allergy Reactions Criticality Noted Date [...] with: Unable to Di scuss Care Teams Engagement Mgr Relationship Specialty Start Date End Date Barbara Schilling PA PCP - General 10/27/18
--- OUTSIDE RECORDS SUMMARY | 2024-12-07 15:47 | XMS_ITS | Clinical Summary ---
Author Organization [facility] Address [address] [place] [address] Care Team Providers Care Optical Technician Name Role Phone Barbara Schilling Primary Care Provider [phone] Surgical History Surgery Date Site/Laterality Comments UPPER GASTROINTESTINAL ENDOSCOPY PROCEDURE:UPPER GASTROINTESTINAL ENDOSCOPY CARDIAC CATHETERIZATION 07/23/2015 N/A PROCEDURE:CARDIAC CATHETERIZATION;COMMENT:Proce dure: LEFT HEART CATHETERIZATION ? PTCA , CORONARY ANGIO , FEMORAL; Surgeon: Colleen Jaeger MD; Location: 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 65 percent, normal RV systolic function, moderate sized pedunculated multilobular LV mass, mobile, located along septum History of stroke 09/29/2016 DX:History of stroke Hx of myocardial infarction 08/04/2017 DX:H x of myocardial infarction Hyperlipidemia 09/12/2015 DX:Hyperlipidemi a Pulmonary embolism (CMS/HCC) DX: Pulmonary embolism (HCC) DVT (deep venous thrombosis) ([facility]) DX:DVT (deep venous thrombos is) ([facility]) Family History Medical History Relation Name Comments [...] age to complete this topic Care Teams Optical Technician Relationship Specialty Start Date End Date Barbara Schilling PA PCP - General Hazardous Materials Analyst 08/27/17
== END 2024-12-07 16:02 | disposition home or self-care (01) ==
PROVIDERS: PCP Nurse Practitioner Family; Visit Provider Nurse Practitioner Family
DX: I10 Essential (primary) hypertension (principal); E78.00 Pure hypercholesterolemia, unspecified; F31.9 Bipolar disorder, unspecified; F41.1 Generalized anxiety disorder

== ENCOUNTER 2025-01-16 12:37 | Outpatient (AMB) | payer OTHER, SELFPAY ==
--- NOTE | 2025-01-16 12:44 | A.OFFPC_ITS ---
Vital Signs 01/16/25 12:54 Height 5 ft 8 in Weight 213 lb BMI 32.4 BP 142/102 H Blood Pressure Location Rt brachial Position Sitting Respiration 14 Pulse 68 Pulse Source Pulse Oximeter Temp 97.7 F Temp Source Oral Pulse Oximetry (%) 98 Oxygen Delivery Method Room Air Intake Visit Reasons: 1 mos HTN Intake Note: Sergo presents in the office today for a 1 month follow up for hypertension. Patient needs a letter in regards to an accommodation to aphasia. Bark Scaler Required: No Allergies zoloft Adverse Reaction (Severe, Uncoded 01/16/25 12:57) Hallucinations Medication List - Last Reconciled 01/16/25 by Patricia Montes CNP atorvastatin 20 mg PO DAILY 90 days carbamide peroxide 6.5% (Debrox) 5 drps otic (ears) DAILY 4 days diltiazem HCl CD 120 mg PO DAILY 90 days losartan 50 mg PO DAILY 90 days pantoprazole 40 mg PO DAILY 90 days pregabalin 150 mg PO BID 90 days propranolol 10 mg PO BID 30 days rivaroxaban (Xarelto) 20 mg PO DAILY 90 days Tobacco use date assessed: 01/16/25 Dental Screening Dental Screen Date: 01/16/25 Did you have a dental visit in the last 12 months?: Yes Did you have a dental problem in the last 6 months where you did not have access to dental care?: No Was dental information given to patient?: Patient has dentist HPI HPI Comments History of Present Illness Details 49-year-old male presents for hypertensi on follow-up. He admits to taking his medications as prescribed without adverse reactions. He offers no complaints and denies acute symptoms at this time. He requests a letter indicating that he has history of aphasia. He notes that he was followed by [facility] cardiology but has not seen them in over a year and half. He requests a referral to [facility]. [facility], [facility] Medical History (Updated 01/16/25 @ 13:13 by Patricia Montes CNP) Depression Anxiety Memory loss H/O blood clots Palpitation Stroke High cholesterol High blood pressure Family History Father Alcohol abuse High blood pressure Cardiovascular disease Mother High blood pressure Maternal Grandmother Diabetes Maternal Grandfather Cardiovascular disease Other Gilbert syndrome Social History (Updated 01/16/25 @ 12:53 by SHAHRAM De La Torre Housing: House Alcohol intake: never Patient Tobacco Use Status: Current everyday Tobacco user Cigarette Packs Per Day: 10 Cigarettes Per Day: 10 e-Cigarette/Vaping Use: Currently Using Second Hand Smoke Exposure: No service: No Current occupational status: disabled Current occupational exposures/hazards: No Cognitive needs: Yes Hearing needs: No Vision needs: Yes Questionnaire PHQ-9 Over the last 2 weeks, how often have you been bothered by any of the following problems? 1. Little interest or pleasure in doing things: not at all 2. Feeling down, depressed, or hopeless: not at all 3. Trouble falling or staying asleep, or sleeping too much: not at all 4. Feeling tired or having little energy: not at all 5. Poor appetite or overeating: not at all 6. Feeling bad about yourself - or that you are a failure or have let yourself or your family down: not at all 7. Trouble concentrating on things, such as reading the newspaper or watching television: not at all 8. Moving or speaking so slowly that other people could have noticed. Or the opposite - being so fidgety or restless that you have been moving around a lot more than usual: not at all 9. Thoughts that you would be better off or of hurting yourself in some way: not at all Total score: 0 Depression Screening Interpretation: Negative Depression Screening Done: Yes 04711 - PHQ-9 Billing: Patient declined-do not bill Source: Developed by Drs. Sergo Brady, Monse Nash, Tyler Casey and colleagues, with an educational lois from [employer]. Thrive Questionnaire Date Thrive assessed: 01/16/25 I am a: Patient What is your living situation today?: I have a steady place to live Within the past 12 months, did the food you bought not last and you didn't have the money to get more?: I choose not to answer this question Within the past 12 months, did you worry whether your food would run out before you got money to buy more?: I choose not to answer this question Do you have trouble paying for medicines?: I choose not to answer this question Do you have trouble getting transportation to medical appointments?: I choose not to answer this question Do you have trouble paying your heating and electricity bill?: I choose not to answer this question Do you have trouble taking care of your child, family member or friend?: I choose not to answer this question Do you have trouble with day-to-day activities such as bathing, preparing meals, shopping, managing finances, etc.?: I choose not to answer this question Are you currently unemployed and looking for a job?: I choose not to answer this question Are you interested in more education?: I choose not to answer this question Please select the resources that you would like help with: None Currently or been in a relationship where the following occur: I choose not to answer THRIVE Score: 0 AUDIT C Alcohol Use Questionnaire (AUDIT-C) 1. How often do you have a drink containing alcohol?: Never Total Score: 0 Score Reviewed/Action Taken: No ROSELYN-7 AMB Questionnaire ROSELYN-7 Date ROSELYN - 7 assessed: 01/16/25 Feeling nervous, anxious, or on edge: 0 = Not at all Not being able to stop or control worryin = Not at all Worrying too much about different things: 0 = Not at all Trouble relaxin = Not at all Being so restless that it is hard to sit still: 0 = Not at all Becoming easily annoyed or irritable: 0 = Not at all Feeling afraid as if something awful might happen: 0 = Not at all Total ROSELYN-7 score (0-4 normal; 5-9 mild; 10-14 moderate; 15-21 severe): 0 Source: Developed by Drs. Sergo Brady, Monse Nash, Tyler Casey and colleagues, with an educational lois from [employer]. ROSELYN-7 Assessment Billing ROSELYN-7 Assessment Tool: ROSELYN-7 Assessment 44349 Review of Systems Const Details: Const Denies chills, Denies fatigue, Denies fever(s), Denies headache(s) and Denies weakness ENT Denies dizziness and Denies headache(s) Card Denies chest pain, Denies lightheadedness, Denies dyspnea and Denies other (Palpitations) Resp Denies cough, Denies dyspnea, Denies wheezing and Denies other ( shortness of breath) GI Denies abdominal pain, Denies melena, Denies hematochezia, Denies change in bowel habits, Denies dyspepsia and Denies nausea Denies hematuria and Denies dysuria Musc Denies abnormal gait, Denies myalgias, Denies arthralgias, Denies numbness and Denies tingling Skin/Breast Denies rash, Denies unusual bruising and Denies wounds Neuro Denies abnormal gait, Denies dizziness, Denies headache(s), Denies memory loss, Denies numbness, Denies Sensory deficit (Neuro), Denies tingling and Denies weakness Psych Denies anxiety, Denies depression, Denies memory loss Endo Denies cold intolerance, Denies fatigue, Denies heat intolerance, Denies polydipsia and Denies polyuria Aller/Immun Denies wheezing Physical exam (Primary Care) Tobacco/Smoking Status: Tobacco use Status Tobacco use date assessed 12/07/24 01/16/25 12:46 Patient Tobacco Use Status Current everyday Tobacco 01/16/25 12:53 e-Cigarette/Vaping Use Currently Using 01/16/25 12:53 Depression Screening Interpretation: Negative Thrive Assessment: Date of Thrive Assessment Date Thrive assessed 10/14/24 01/16/25 12:46 Currently or been in a relationship where the following occur: I choose not to answer Const Other: General: no acute distress and well developed Nutritional Appearance: well nourished Orientation/consciousness: patient oriented x3 HENMT Head: Yes normocephalic and Yes atraumatic Eyes General: appearance normal, both eyes and all related structures Pupils: Equal, round and reactive pupils present EOM: EOMs intact bilaterally Resp Effort & Inspection: normal respiratory effort Auscultation: clear to auscultation bilaterally Cardio Rate: regular rate Rhythm: regular rhythm Heart sounds: S1 normal heart sound present, S2 normal heart sound present, no gallops, no murmurs and no rubs GI Palpation (GI): No Abdominal aortic bruit present, Soft to palpation, nontender, No hepatosplenomegaly present and No Rebound tenderness present Auscultation: normal bowel sounds General: Yes no CVA tenderness Back/Spine/Pelvis Back: no CVA tenderness Cervical Spine: cervical ROM normal and No Cervical spine tenderness Thoracic/Lumbar Spine: thoraco-lumbar ROM normal, No pain with thoraco-lumbar ROM, No thoracic spinal tenderness and No lumbar spinal tenderness Extrem General: Yes normal to inspection, No edema and No calf tenderness Skin General: warm and dry. Normal skin color. Normal skin turgor Neuro General: patient oriented x3, gait normal and no focal neuro deficit Cranial nerves: Yes Equal, round and reactive pupils present Cognition (Neuro): normal cognition Gait exam (Neuro): Normal gait present Sensory Exam: No Sensory deficit (Neuro) Psych Appearance: grossly normal Affect: normal affect Attitude: cooperative Thought process: Normal thought process present Coding Level of Care Code Est Pt Level 3 (86122) Diagnoses High blood pressure I10 Additional Codes ROSELYN-7 Assessment Billing - ROSELYN-7 Assessment Tool: ROSELYN-7 Assessment 97456 ([id number]) Assessment & Plan Assessment & Plan (1) High blood pressure: Code(s): I10 - Essential (primary) hypertension Category: Medical Plan: Resting blood pressure is 142/102, above goal of less than 130/80. Will increase losartan to 50 mg twice daily; advised to take as prescribed. Continue to take diltiazem as prescribed. Low-sodium diet and routine exercise encouraged. Referred to [facility]. Letter given as requested. Follow-up in 2 weeks or sooner with symptoms or concerns. Verbalized understanding and agreed with treatment plan. Orders: Referrals Cardiology Referral E78.00 - Pure hypercholesterolemia, unspecified, I10 - Essential (primary) hypertension Medications: Changed From losartan 50 mg PO DAILY 90 days 90 tabs 1RF To losartan 50 mg PO BID 90 days 180 tabs 1RF
[2025-01-16 12:54] VITALS: BP 142/102; PULSE 68; RESP 14; TEMP 36.5; O2SAT 98; BMI 32.4
--- OUTSIDE RECORDS SUMMARY | 2025-01-16 15:12 | XMS_ITS | Clinical Summary ---
Author Organization [address] Address [address] [place] [phone] Care Team Providers Care Coating And Baking Operator Name Role Phone Barbara Schilling Primary Care Provider [phone] Allergies Active Allergy Reactions Criticality Noted Date [...] Date Smoking Tobacco: Every Day Cigarettes 0.5 6.3 Started: 10/11/2018 Smokeless Tobacco: Never Tobacco Cessation:Counseling [...] Health Maintenance Due Date Last Done Comments HIV screening 1990 Hepatitis C screening 1995 Pneumococcal Vaccine (2 - 49 years) (1 of 2 - PCV) 1996 Lipid disorder screening 2017 Colon cancer screening, Colonoscopy 2022 Diabetes screening 06/18/2023 06/18/2020 Covid-19 vaccine series ( season) 2024 03/06/2021, 02/06/2021 Influenza vaccine 06/11/2025 07/28/2021, , 07/20/2018, Additional history exists Tetanus adult (Td q 10,TDAP once) 01/31/2029 01/31/2019 RSV Immunization (1 - 1-dose 75+ series) 2052 Meningococcal [...] - 144 mmol/L 06/18/2020 11:30 AM EDT [facility] Potassium 4.2 3.3 - 5.1 mmol/L 06/18/2020 11:30 AM EDT [facility] Comment:Sample slightly hemo lyzed. Results may be falsely elevated due to hemolysis. Chloride 105 98 - 107 mmol/L 06/18/2020 11:30 AM EDT [facility] CO2 25 20 - 30 mmol/L 06/18/2020 11:30 AM EDT [facility] Anion Gap 11 7 - 17 06/18/2020 11:30 AM EDT [facility] Glucose 97 70 - 100 mg/dL 06/18/2020 11:30 AM EDT [facility] BUN 6 6 - 20 mg/dL 06/18/2020 11:30 AM EDT [facility] Creatinine 0.90 0.40 - 1.30 mg/dL 06/18/2020 11:30 AM EDT [facility] Calcium 9.1 8.8 - 10.2 mg/dL 06/18/2020 11:30 AM EDT [facility] BUN/Creatinine Ratio 6.7(L) 8.0 - 23.0 06/18/2020 11:30 AM EDT [facility] eGFR (Afr Amer) >60 >60 mL/min/1.7 3m2 06/18/2020 11:30 AM EDT [facility] Comment: Values under 60mL/min/1.73m2 may indicate CKD if noted for ?? more than 3 months. eGFR is only valid if creatinine is at steady state. eGFR (NON -Adali n) >60 >60 mL/min/1.7 3m2 06/18/2020 11:30 AM EDT [facility] Comment: Values under 60mL/min/1.73m2 may indicate CKD if noted for ?? more than 3 months. eGFR is only valid if creatinine is at steady state. Blood Venipuncture / Unknown 06/18/2020 10:51 AM EDT 06/18/2020 11:00 AM EDT [facility] BLOOD ORDERABLES Final Result Performing Organization Address City/State/[facility] Co de Phone Number [facility] [address] [place] [address], [facility] [phone] from Last 3 Months or Most Recently Relevant to Health Maintenance Insurance [facility] BS BS Care Teams Coating And Baking Operator Relationship Specialty Start Date End Date Barbara Schilling PA [address] [place] [phone] PCP - General 08/26/17
--- OUTSIDE RECORDS SUMMARY | 2025-01-16 15:12 | XMS_ITS | Clinical Summary ---
Author Organization [facility] Address [address] [place] [address] Care Team Providers Care Tubular Stock Glass Bulb Machine Former Name Role Phone Barbara Schilling PA-C Primary Care Provider [phone] Allergies Active Allergy Reactions Criticality Noted Date [...] iniety anticoagulation with NOAC indicated (hematology eval [facility] 03/01/2018) 03/11/2018 Overview: Per hematology evaluation at [facility] on 03/01/[address] Lozano, no evidence [...] syndrome 09/09/2017 Coronary artery disease invo lving [place] coronary artery of [place] heart without angina pectoris 09/04/2017 H/O gastroesophageal reflux (GERD) 09/04/2017 unprovoked/idiopathic R gastroc DVT 08/28/2017 1 11/04/2016 Bilateral pulmonary embolism, unprovoked 017 09/04/2017 Overview: [facility] pulmonary infarction 09/04/2017 Apical mural thrombus s/p [place] 08/04/2017 Overview: From [facility] history OV [facility] TELLEZ 08/26/2017 Echo 08/26/2017: [...] of precerebral artery 08/01/2015 12/03/2015 Palpitations: eval [facility] w Ho [facility]ter 07/2017, profuse ventricular ectopy [...] Advance Directives For more information, please contact: [phone] Documents on File Type Date Recorded Patient Location Manager Expl anation Advance Directive and Living Will 12/13/2015 11:48 AM Latest Code Status on File Code Status Date Activated Date Inactivated Comments Full Code 04/18/2021 3:18 PM 04/23/2021 5:39 PM This c ode status was ascertained in the following way: per unit protocol. Code Status History Code Status Date Activated Date Inactivated Comments Full Code 04/26/2020 12:45 AM 04/29/2020 6:56 PM This code status was ascertained in the following way: per unit protocol. Full Code 07/24/2019 8:32 PM 07/31/2019 9:09 PM Thi s code status was ascertained in the following way: per unit protocol. Full Code 07/23/2015 9:58 AM 07/31/2015 5:51 PM Thi s code status was ascertained in the following way: per unit protocol. Care Teams Tubular Stock Glass Bulb Machine Former Relationship Specialty Start Date End Date Barbara Schilling PA-C PCP - General Area Supervisor 08/27/17
--- OUTSIDE RECORDS SUMMARY | 2025-01-16 15:12 | XMS_ITS | Encounter Summary ---
Author Organization [facility] Address [address] [place] [phone] Care Team Providers Care School Administrator Name Role Phone Barbara Schilling Primary Care Provider [phone] Encounter Details Date Type Department Care Team ([facility] st Contact Info) Description 08/09/2017 Scanned Document Cardiovascular Medicine at [address] [place] [phone] Vadim Schaeffer MD [address] [place] [phone] Social History Tobacco Use Types Packs/Day Years [...] on filedocumented in this encounter Care Teams School Administrator Relationship Specialty Start Date End Date Barbara Schilling PA [address] [place] [phone] PCP - General 08/26/17 documented as of this encounter
--- OUTSIDE RECORDS SUMMARY | 2025-01-16 15:12 | XMS_ITS | Clinical Summary ---
Author Organization [facility] Address [address] [place] [address] Care Team Providers Care Audio Director Name Role Phone Barbara Schilling Primary Care Provider [phone] Surgical History Surgery Date Site/Laterality Comments UPPER GASTROINTESTINAL ENDOSCOPY PROCEDURE:UPPER GASTROINTESTINAL ENDOSCOPY CARDIAC CATHETERIZATION 07/23/2015 N/A PROCEDURE:CARDIAC CATHETERIZATION;COMMENT:Proce dure: LEFT HEART CATHETERIZATION ? PTCA , CORONARY ANGIO , FEMORAL; Surgeon: Colleen Jaeger MD; Location: [facility] CARDIAC MANAGEMENT ANALYST; Service: Cardiology; Laterality: N/A; Medical History Medical [...] 07/23/15 DX:Acute ST elevation myocar dial infarction ([facility]);COMMENT:Question vasospastic versus thromboembolic Acute CVA (cerebrovascular a ccident) (CMS/HCC) 07/23/15 DX:Acute CVA (cerebrovascula r accident) ([facility]);COMMENT:Left MCA History of echocardiogram 07/23/15 DX:His tory of echocardiogram;COMMENT:EF 55? 65 percent, normal RV systolic function, moderate sized pedunculated multilobular LV mass, mobile, located along septum History of stroke 09/29/2016 DX:History of stroke Hx of myocardial infarction 08/04/2017 DX:H x of myocardial infarction Hyperlipidemia 09/12/2015 DX:Hyperlipidemi a Pulmonary embolism DX:Pulmonary embolism (HCC) DVT (deep venous thrombosis) ([facility]/HCC) DX:DVT (deep venous thrombos is) ([facility]) Family History Medical History Relation Name [...] 03/26/2022, 04/20/2021, Additional history exists COVID-19 Vaccine ( - season) 2024 Influenza Vaccine (#1) 2024 1, 09/14/2019, 07/20/2018, Additional history exists Cholesterol Screening [...] age to complete this topic Meningococcal B Vaccine Aged Out No l onger eligible based on patient's age to complete this topic RSV Immunization Patients Under 20 months Aged Out No longer eligible based on patient's age to complete this topic Varicella Vaccines Aged Out No longer eligible based on patient's age to complete this topic Care Teams Audio Director Relationship Specialty Start Date End Date Barbara Schilling PA PCP - General Academic Advising Director 08/27/17
--- OUTSIDE RECORDS SUMMARY | 2025-01-16 15:12 | XMS_ITS | Encounter Summary ---
Author Organization [facility] Address [address] [place] [phone] Care Team Providers Care Police Lieutenant Patrol Name Role Phone Barbara Schilling Primary Care Provider [phone] Encounter Details Date Type Department Care Team (Late st Contact Info) Description 06/15/2017 Scanned Document Cardiovascular Medicine at [address] [place] [phone] External, Provider Social History Tobacco Use Types [...] on filedocumented in this encounter Care Teams Police Lieutenant Patrol Relationship Specialty Start Date End Date Barbara Schilling PA [address] [place] [phone] PCP - General 08/26/17 documented as of this encounter
--- OUTSIDE RECORDS SUMMARY | 2025-01-16 15:12 | XMS_ITS | Encounter Summary ---
Author Organization [facility] Address [address] [place] [phone] Care Team Providers Care Frozen Meat Cutter Name Role Phone Barbara Schilling Primary Care Provider [phone] Reason for Visit * Reason Comments Medication Refill Encounter Details Date Type Department Care Team ([facility] st Contact Info) Description 06/27/2021 Refill Cardiovascular Medicine at [address] [place] [phone] Vadim Schaeffer MD [address] [place] [phone] Medication Refill Social History Tobacco Use Types Packs/Day Years Used Date Smoking Tobacco: Every Day Cigarettes 0.5 6.3 Started: 10/11/2018 Smokeless Tobacco: Never Alcohol Use [...] documented as of this encounter Care Teams Frozen Meat Cutter Relationship Specialty Start Date End Date Barabra Schilling PA [address] [place] [address], [place] [phone] PCP - General 08/26/17 documented as of this encounter
--- OUTSIDE RECORDS SUMMARY | 2025-01-16 15:12 | XMS_ITS | Encounter Summary ---
Author Organization [facility] Address [address] [place] [phone] Care Team Providers Care Senior Automation Engineer Name Role Phone Barbara Schilling Primary Care Provider [phone] Encounter Details Date Type Department Care Team ([facility] st Contact Info) Description 02/03/2018 Scanned Document [facility] Health Information Management [address] [place] [address] [phone] External, Provider Social History Tobacco Use Types [...] documented as of this encounter Care Teams Senior Automation Engineer Relationship Specialty Start Date End Date Barbara cShilling PA [address] [place] [phone] PCP - General 08/26/17 documented as of this encounter
--- OUTSIDE RECORDS SUMMARY | 2025-01-16 15:12 | XMS_ITS | Encounter Summary ---
Author Organization [facility] Address [address] [place] [phone] Care Team Providers Care Aviation Project Manager Name Role Phone Barbara Schilling Primary Care Provider [phone] Reason for Visit * Reason Comments Medication Refill Encounter Details Date Type Department Care Team ([facility] st Contact Info) Description 07/02/2022 Refill Cardiovascular Medicine at [address] [place] [phone] Vadim Schaeffer MD [address] [place] [phone] Medication Refill Social History Tobacco Use [...] documented as of this encounter Care Teams Aviation Project Manager Relationship Specialty Start Date End Date Barbara Schilling PA [address] [place] [address], [place] [phone] PCP - General 08/26/17 documented as of this encounter
--- OUTSIDE RECORDS SUMMARY | 2025-01-16 15:12 | XMS_ITS | Encounter Summary ---
Author Organization [facility] Address [address] [place] [phone] Care Team Providers Care Safety Specialist Name Role Phone Barbara Schilling Primary Care Provider [phone] Encounter Details Date Type Department Care Team ([facility] st Contact Info) Description 09/27/2017 Scanned Document Cardiovascular Medicine at [address] [place] [phone] Vadim Schaeffer MD [address] [place] [phone] Social History Tobacco Use Types Packs/Day Years [...] documented as of this encounter Care Teams Safety Specialist Relationship Specialty Start Date End Date Barbara Schilling PA [address] [place] [address], [place] [phone] PCP - General 08/26/17 documented as of this encounter
--- OUTSIDE RECORDS SUMMARY | 2025-01-16 15:12 | XMS_ITS | Encounter Summary ---
Author Organization [facility] and [facility] Address [address] [place] [phone] Care Team Providers Care Injury Prevention Coordinator Name Role Phone Barbara Schilling Primary Care Provider [phone] Reason for Visit * Reason Comments Medication Refill Encounter Details Date Type Department Care Team ([facility] st Contact Info) Description 06/24/2021 Refill Cardiovascular Medicine at [address] [place] [phone] Vadim Schaeffer MD [address] [place] [phone] Medication Refill Social History Tobacco Use [...] documented as of this encounter Care Teams Injury Prevention Coordinator Relationship Specialty Start Date End Date Barbara Schilling PA [address] [place] [phone] PCP - General 08/26/17 documented as of this encounter
--- OUTSIDE RECORDS SUMMARY | 2025-01-16 15:12 | XMS_ITS | Encounter Summary ---
Author Organization [facility] and [facility] Address [address] [place] [phone] Care Team Providers Care Agriscience Technology Instructor Name Role Phone Barbara Schilling Primary Care Provider [phone] Reason for Visit * Reason Comments Medication Refill Encounter Details Date Type Department Care Team ([facility] st Contact Info) Description 05/15/2024 Refill Cardiovascular Medicine at [address] [place] [address] [address] [facility] [address] [place] [phone] Valentino Carrasco MD [address] [phone] Medication Refill Social History Tobacco [...] documented as of this encounter Care Teams Agriscience Technology Instructor Relationship Specialty Start Date End Date Barabra Schilling PA [address] [place] [phone] PCP - General 08/26/17 documented as of this encounter
--- OUTSIDE RECORDS SUMMARY | 2025-01-16 15:12 | XMS_ITS | Encounter Summary ---
Author Organization [facility] and [facility] Address [address] [place] [phone] Care Team Providers Care Provider Service Representative Name Role Phone Barbara Schilling Primary Care Provider Encounter Details Date Type Department Care Team (Late st Contact Info) Description 11/21/2018 Scanned Document Cardiovascular Medicine at [address] [place] [phone] External, Provider Social History Tobacco Use Types [...] documented as of this encounter Care Teams Provider Service Representative Relationship Specialty Start Date End Date Barbara Schilling PA [address] [place] [phone] PCP - General 08/26/17 documented as of this encounter
--- OUTSIDE RECORDS SUMMARY | 2025-01-16 15:12 | XMS_ITS | Encounter Summary ---
Author Organization [facility] and [facility] Address [address] [place] [phone] Care Team Providers Care Tablet Tester Name Role Phone Barbara Schilling Primary Care Provider [phone] Encounter Details Date Type Department Care Team ([facility] st Contact Info) Description 09/20/2017 Scanned Document [facility] Health Information Management [address] [place] [phone] External, Provider Social History Tobacco Use Types [...] documented as of this encounter Care Teams Tablet Tester Relationship Specialty Start Date End Date Barbara Schilling PA [address] [place] [phone] PCP - General 08/26/17 documented as of this encounter
--- OUTSIDE RECORDS SUMMARY | 2025-01-16 15:12 | XMS_ITS | Clinical Summary ---
Author Organization [facility] Address [address] [place] [address] Care Team Providers Care Button Tufter Name Role Phone Barbara Schilling Primary Care [...] with: Unable to Di scuss Care Teams Button Tufter Relationship Specialty Start Date End Date Barbara Schilling PA PCP - General 10/27/18
== END 2025-01-16 13:11 | disposition home or self-care (01) ==
LOC: HO.HMCFM 12:38
PROVIDERS: PCP Nurse Practitioner Family; Visit Provider Nurse Practitioner Family
DX: I10 Essential (primary) hypertension (principal)

== ENCOUNTER → 2025-01-16 12:37 | Outpatient (BNVA) | payer OTHER, SELFPAY | PROVIDERS: PCP Nurse Practitioner Family; Visit Provider Nurse Practitioner Family | DX: I10 Essential (primary) hypertension (principal) | CPT/HCPCS: 96127; 99212 ==

== ENCOUNTER 2025-02-02 12:57 | Outpatient (AMB) | payer OTHER, SELFPAY ==
--- NOTE | 2025-02-02 12:58 | A.OFFPC_ITS ---
Vital Signs 02/02/25 13:02 02/02/25 13:26 Height 5 ft 8 in Weight 211 lb 4 oz BMI 32.1 BP 146/86 H 124/82 Blood Pressure Location Lt brachial Rt brachial Position Sitting Sitting Respiration 16 Pulse 64 Pulse Source Pulse Oximeter Temp 97.5 F Temp Source Oral Pulse Oximetry (%) 98 Oxygen Delivery Method Room Air Intake Visit Reasons: 2 wks HTN Intake Note: patient here for follow up on HTN Loan Closer Required: No Allergies zoloft Adverse Reaction (Severe, Uncoded 02/02/25 13:21) Hallucinations Medication List - Last Reconciled 02/02/25 by Patricia Montes CNP atorvastatin 20 mg PO DAILY 90 days carbamide peroxide 6.5% (Debrox) 5 drps otic (ears) DAILY 4 days diltiazem HCl CD 120 mg PO DAILY 90 days losartan 50 mg PO BID 90 days pantoprazole 40 mg PO DAILY 90 days pregabalin 150 mg PO BID 90 days propranolol 10 mg PO BID 30 days rivaroxaban (Xarelto) 20 mg PO DAILY 90 days Tobacco use date assessed: 02/02/25 Dental Screening Dental Screen Date: 02/02/25 Did you have a dental visit in the last 12 months?: Yes Did you have a dental problem in the last 6 months where you did not have access to dental care?: No Was dental information given to patient?: Patient has dentist HPI HPI Comments History of Present Illness Details 49-year-old male presents for hypertensi on follow-up. He admits to taking his medications as prescribed without adverse reactions. Losartan was increased to 50 mg twice daily at his last visit 2 weeks ago. He offers no complaints and denies acute symptoms at this time. [facility] Medical History (Updated 01/16/25 @ 13:13 by Patricia Montes CNP) Depression Anxiety Memory loss H/O blood clots Palpitation Stroke High cholesterol High blood pressure Family History Father Alcohol abuse High blood pressure Cardiovascular disease Mother High blood pressure Maternal Grandmother Diabetes Maternal Grandfather Cardiovascular disease Other Gilbert syndrome Social History (Updated 01/16/25 @ 12:53 by Jelena Anne MA) Housing: House Alcohol intake: never Patient Tobacco Use Status: Current everyday Tobacco user Cigarette Packs Per Day: 10 Cigarettes Per Day: 10 e-Cigarette/Vaping Use: Currently Using Second Hand Smoke Exposure: No service: No Current occupational status: disabled Current occupational exposures/hazards: No Cognitive needs: Yes Hearing needs: No Vision needs: Yes Questionnaire PHQ-9 Over the last 2 weeks, how often have you been bothered by any of the following problems? 1. Little interest or pleasure in doing things: not at all 2. Feeling down, depressed, or hopeless: not at all 3. Trouble falling or staying asleep, or sleeping too much: not at all 4. Feeling tired or having little energy: not at all 5. Poor appetite or overeating: not at all 6. Feeling bad about yourself - or that you are a failure or have let yourself or your family down: not at all 7. Trouble concentrating on things, such as reading the newspaper or watching television: not at all 8. Moving or speaking so slowly that other people could have noticed. Or the opposite - being so fidgety or restless that you have been moving around a lot more than usual: not at all 9. Thoughts that you would be better off or of hurting yourself in some way: not at all Total score: 0 Depression Screening Interpretation: Negative Depression Screening Done: Yes 54552 - PHQ-9 Billing: Yes Source: Developed by Drs. Sergo Brady, Monse Nash, Tyler Casey and colleagues, with an educational lois from [employer]. Thrive Questionnaire Date Thrive assessed: 10/14/24 I am a: Patient What is your living situation today?: I have a steady place to live Within the past 12 months, did the food you bought not last and you didn't have the money to get more?: I choose not to answer this question Within the past 12 months, did you worry whether your food would run out before you got money to buy more?: I choose not to answer this question Do you have trouble paying for medicines?: I choose not to answer this question Do you have trouble getting transportation to medical appointments?: I choose not to answer this question Do you have trouble paying your heating and electricity bill?: I choose not to answer this question Do you have trouble taking care of your child, family member or friend?: I choose not to answer this question Do you have trouble with day-to-day activities such as bathing, preparing meals, shopping, managing finances, etc.?: I choose not to answer this question Are you currently unemployed and looking for a job?: I choose not to answer this question Are you interested in more education?: I choose not to answer this question Please select the resources that you would like help with: None THRIVE Score: 0 AUDIT C Alcohol Use Questionnaire (AUDIT-C) 1. How often do you have a drink containing alcohol?: Never Total Score: 0 Score Reviewed/Action Taken: Yes ROSELYN-7 AMB Questionnaire ROSELYN-7 Date ROSELYN - 7 assessed: 02/02/25 Feeling nervous, anxious, or on edge: 0 = Not at all Not being able to stop or control worryin = Not at all Worrying too much about different things: 0 = Not at all Trouble relaxin = Not at all Being so restless that it is hard to sit still: 0 = Not at all Becoming easily annoyed or irritable: 0 = Not at all Feeling afraid as if something awful might happen: 0 = Not at all Total ROSELYN-7 score (0-4 normal; 5-9 mild; 10-14 moderate; 15-21 severe): 0 Source: Developed by Drs. Sergo Brady, Monse Nash, Tyler Casey and colleagues, with an educational lois from [employer]. ROSELYN-7 Assessment Billing ROSELYN-7 Assessment Tool: ROSELYN-7 Assessment 37063 Review of Systems Const Details: Const Denies chills, Denies fatigue, Denies fever(s), Denies headache(s) and Denies weakness ENT Denies dizziness and Denies headache(s) Card Denies chest pain, Denies lightheadedness, Denies dyspnea and Denies other (Palpitations) Resp Denies cough, Denies dyspnea, Denies wheezing and Denies other ( shortness of breath) GI Denies abdominal pain, Denies melena, Denies hematochezia, Denies change in bowel habits, Denies dyspepsia and Denies nausea Denies hematuria and Denies dysuria Musc Denies abnormal gait, Denies myalgias, Denies arthralgias, Denies numbness and Denies tingling Skin/Breast Denies rash, Denies unusual bruising and Denies wounds Neuro Denies abnormal gait, Denies dizziness, Denies headache(s), Denies memory loss, Denies numbness, Denies Sensory deficit (Neuro), Denies tingling and Denies weakness Psych Denies anxiety, Denies depression, Denies memory loss Endo Denies cold intolerance, Denies fatigue, Denies heat intolerance, Denies polydipsia and Denies polyuria Aller/Immun Denies wheezing Physical exam (Primary Care) Vital Signs: Last Vital Signs Temp 97.5 F 02/02/25 13:02 Pulse 64 02/02/25 13:02 Resp 16 02/02/25 13:02 BP 146/86 H 02/02/25 13:02 Pulse Ox 98 02/02/25 13:02 Oxygen Delivery Method Room Air 02/02/25 13:02 BMI result Body Mass Index 32.1 Tobacco/Smoking Status: Tobacco use Status Tobacco use date assessed 02/02/25 02/02/25 13:06 Patient Tobacco Use Status Current everyday Tobacco 02/02/25 13:01 e-Cigarette/Vaping Use Currently Using 02/02/25 13:01 PHQ-9: PHQ-9 Score PHQ-9: Total score 0 02/02/25 13:06 Depression Screening Interpretation: Negative Thrive Assessment: Date of Thrive Assessment Date Thrive assessed 10/14/24 02/02/25 13:01 Const Other: General: no acute distress and well developed Nutritional Appearance: well nourished Orientation/consciousness: patient oriented x3 HENMT Head: Yes normocephalic and Yes atraumatic Eyes General: appearance normal, both eyes and all related structures Pupils: Equal, round and reactive pupils present EOM: EOMs intact bilaterally Resp Effort & Inspection: normal respiratory effort Auscultation: clear to auscultation bilaterally Cardio Rate: regular rate Rhythm: regular rhythm Heart sounds: S1 normal heart sound present, S2 normal heart sound present, no gallops, no murmurs and no rubs GI Palpation (GI): No Abdominal aortic bruit present, Soft to palpation, nontender, No hepatosplenomegaly present and No Rebound tenderness present Auscultation: normal bowel sounds General: Yes no CVA tenderness Back/Spine/Pelvis Back: no CVA tenderness Cervical Spine: cervical ROM normal and No Cervical spine tenderness Thoracic/Lumbar Spine: thoraco-lumbar ROM normal, No pain with thoraco-lumbar ROM, No thoracic spinal tenderness and No lumbar spinal tenderness Extrem General: Yes normal to inspection, No edema and No calf tenderness Skin General: warm and dry. Normal skin color. Normal skin turgor Neuro General: patient oriented x3, gait normal and no focal neuro deficit Cranial nerves: Yes Equal, round and reactive pupils present Cognition (Neuro): normal cognition Gait exam (Neuro): Normal gait present Sensory Exam: No Sensory deficit (Neuro) Psych Appearance: grossly normal Affect: normal affect Attitude: cooperative Thought process: Normal thought process present Coding Level of Care Code Est Pt Level 3 (02098) Diagnoses High blood pressure I10 Additional Codes ROSELYN-7 Assessment Billing - ROSELYN-7 Assessment Tool: ROSELYN-7 Assessment 97675 ([id number]) PHQ-9 - 19351 - PHQ-9 Billing: Yes ([id number]) Assessment & Plan Assessment & Plan (1) High blood pressure: Code(s): I10 - Essential (primary) hypertension Category: Medical Plan: Resting blood pressure is 124/82, slightly above goal of less than 130/80, heart rate is 64. Continue current treatment regimen. Follow-up in 1 month or sooner with symptoms or concerns. Verbalized understanding and agreed with the treatment plan
[2025-02-02 13:02] VITALS: BP 146/86; PULSE 64; RESP 16; TEMP 36.4; O2SAT 98; BMI 32.1
[2025-02-02 13:26] VITALS: BP 124/82
--- OUTSIDE RECORDS SUMMARY | 2025-02-02 13:39 | XMS_ITS | Encounter Summary ---
Author Organization [facility] and [facility] Address [address] [place] [phone] Care Team Providers Care Issuer Name Role Phone Barbara Schilling Primary Care Provider Encounter Details Date Type Department Care Team (Late st Contact Info) Description 11/21/2018 Scanned Document Cardiovascular Medicine at [address] [place] [phone] External, Provider Social History Tobacco Use Types [...] documented as of this encounter Care Teams Issuer Relationship Specialty Start Date End Date Barbara Schilling PA [address] [place] [phone] PCP - General 08/26/17 documented as of this encounter
--- OUTSIDE RECORDS SUMMARY | 2025-02-02 13:39 | XMS_ITS | Encounter Summary ---
Author Organization [facility] and [facility] Address [address] [place] [phone] Care Team Providers Care Lock Installer Name Role Phone Barbara Schilling Primary Care Provider [phone] Reason for Visit * Reason Comments Medication Refill Encounter Details Date Type Department Care Team ([facility] st Contact Info) Description 06/27/2021 Refill Cardiovascular Medicine at [address] [place] [phone] Vadim Schaeffer MD [address] [place] [phone] Medication Refill Social History Tobacco Use [...] documented as of this encounter Care Teams Lock Installer Relationship Specialty Start Date End Date Barbara Schilling PA [address] [place] [address], [place] [phone] PCP - General 08/26/17 documented as of this encounter
--- OUTSIDE RECORDS SUMMARY | 2025-02-02 13:39 | XMS_ITS | Clinical Summary ---
Author Organization [address] Address [address] [place] [phone] Care Team Providers Care Patient Financial Specialist Name Role Phone Barbara Schilling Primary Care Provider [phone] Allergies Active Allergy Reactions Criticality Noted Date [...] - 144 mmol/L 06/18/2020 11:30 AM EDT [facility] Potassium 4.2 3.3 - 5.1 mmol/L 06/18/2020 11:30 AM EDT [facility] Comment:Sample slightly hemo lyzed. Results may be falsely elevated due to hemolysis. Chloride 105 98 - 107 mmol/L 06/18/2020 11:30 AM EDT [facility] CO2 25 20 - 30 mmol/L 06/18/2020 11:30 AM EDT [facility] Anion Gap 11 7 - 17 06/18/2020 11:30 AM EDT [facility] Glucose 97 70 - 100 mg/dL 06/18/2020 11:30 AM EDT [facility] BUN 6 6 - 20 mg/dL 06/18/2020 11:30 AM EDT [facility] Creatinine 0.90 0.40 - 1.30 mg/dL 06/18/2020 11:30 AM EDT [facility] Calcium 9.1 8.8 - 10.2 mg/dL 06/18/2020 11:30 AM EDT [facility] BUN/Creatinine Ratio 6.7(L) 8.0 - 23.0 06/18/2020 11:30 AM EDT [facility] eGFR (Afr Amer) >60 >60 mL/min/1.7 3m2 06/18/2020 11:30 AM EDT [facility] Comment: Values under 60mL/min/1.73m2 may indicate CKD if noted for ?? more than 3 months. eGFR is only valid if creatinine is at steady state. eGFR (NON -Adali n) >60 >60 mL/min/1.7 3m2 06/18/2020 11:30 AM EDT [facility] Comment: Values under 60mL/min/1.73m2 may indicate CKD if noted for ?? more than 3 months. eGFR is only valid if creatinine is at steady state. Blood Venipuncture / Unknown 06/18/2020 10:51 AM EDT 06/18/2020 11:00 AM EDT [facility] LAB BLOOD ORDERABLES Final Result Performing Organization Address City/State/[facility] Co de Phone Number [facility] [address] [place] [address], [facility] [phone] from Last 3 Months or Most Recently Relevant to Health Maintenance Insurance [facility] BS BS Care Teams Patient Financial Specialist Relationship Specialty Start Date End Date Barbara Schilling PA [address] [place] [phone] PCP - General 08/26/17
--- OUTSIDE RECORDS SUMMARY | 2025-02-02 13:39 | XMS_ITS | Clinical Summary ---
Author Organization [facility] Address [address] [place] [address] Care Team Providers Care Fruit Culler Name Role Phone Barbara Schilling Primary Care Provider Surgical History Surgery Date Site/Laterality Comments UPPER GASTROINTESTINAL ENDOSCOPY PROCEDURE:UPPER GASTROINTESTINAL ENDOSCOPY CARDIAC CATHETERIZATION 07/23/2015 N/A PROCEDURE:CARDIAC CATHETERIZATION;COMMENT:Proce dure: LEFT HEART CATHETERIZATION ? PTCA , CORONARY ANGIO , FEMORAL; Surgeon: Colleen Jaeger MD; Location: [facility]; Service: Cardiology; Laterality: N/A; Medical History Medical History Date Comments Hypertension DX:Hypertension Pure hypercholesterolemia DX:Pur e hypercholesterolemia Paroxysmal supraventricular tachycardia (CMS/HCC V24) DX:Paroxysmal supraventricul ar tachycardia (HCC) Obesity DX:Obesity [...] rhythm Acute ST elevation myocardia l infarction (CMS/HCC V24, CMS/HCC V28) 07/23/15 DX:Acute ST elev ation myocardial infarction (HCC);COMMENT:Question vasospastic versus thromboembolic Acute CVA (cerebrovascular a ccident) (CMS/HCC V24, CMS/HCC V28) 07/23/15 DX:Acute CVA (cerebrovascul ar accident) ([facility]);COMMENT:Left MCA History of echocardiogram 07/23/15 DX:His tory of echocardiogram;COMMENT:EF 55? 65 percent, normal RV systolic function, moderate sized pedunculated multilobular LV mass, mobile, located along septum History of stroke 09/29/2016 DX:History of stroke Hx of myocardial infarction 08/04/2017 DX:H x of myocardial infarction Hyperlipidemia 09/12/2015 DX:Hyperlipidemi a Pulmonary embolism ([facility] V24, [facility] V28) DX:Pulmonary embolism ([facility]) DVT (deep venous thrombosis) ([facility] V24, [facility] V28) DX:DVT (deep venous thrombos is) ([facility]) Family History Medical History Relation Name Comments [...] 04/20/2021, Additional history exists COVID-19 Vaccine ( season) 2024 Cholesterol Screening (Lipid Panel) 07/28/2024 07/28/2019 Influenza Vaccine (Season Ended) 2025 07/28/2021, 09/14/2019, 07/20/2018, Additional history exists DTaP,Tdap,and Td Vaccines (2 - Td or [...] age to complete this topic Care Teams Fruit Culler Relationship Specialty Start Date End Date Babrara Schilling PA PCP - General Wood Scaler 08/27/17
--- OUTSIDE RECORDS SUMMARY | 2025-02-02 13:39 | XMS_ITS | Encounter Summary ---
Author Organization [facility] and [facility] Address [address] [place] [phone] Care Team Providers Care Ceramic Capacitor Processor Name Role Phone Barbara Schilling Primary Care Provider [phone] Encounter Details Date Type Department Care Team (Late st Contact Info) Description 06/15/2017 Scanned Document Cardiovascular Medicine at [address] [place] [phone] External, Provider Social History Tobacco Use Types [...] on filedocumented in this encounter Care Teams Ceramic Capacitor Processor Relationship Specialty Start Date End Date Barbara Schilling PA [address] [place] [phone] PCP - General 08/26/17 documented as of this encounter
--- OUTSIDE RECORDS SUMMARY | 2025-02-02 13:39 | XMS_ITS | Clinical Summary ---
Author Organization [facility] Address [address] [place] [address] Care Team Providers Care Airplane Navigator Name Role Phone Barbara Schilling Primary Care Provider Unavail able Allergies Active Allergy Reactions Criticality Noted Date Comments Sertraline Delirium/Confusion/P sychosis,O ther (See Comments) Low 07/29/2015 Hallucinations Medications aspirin 81 MG chewable tablet Chew 81 [...] at Not on file Legal Sex Male 1:20 PM EDT Gender Identity Not on file Sexual [...] on patient's age to complete this topic Insurance [facility] - PPO Advance Directives * Full Code (Latest Code Status on File) Date Activated Date Inactivated Comments 06/21/2020 12:46 AM Question Answer Comments Decision Thoroughly Discussed with: Unable to Di scuss Care Teams Airplane Navigator Relationship Specialty Start Date End Date Barbara Schilling PA PCP - General 10/27/18
--- OUTSIDE RECORDS SUMMARY | 2025-02-02 13:39 | XMS_ITS | Encounter Summary ---
Author Organization [facility] and [facility] Address [address] [place] [phone] Care Team Providers Care Patient Intake Representative Name Role Phone Barbara Schilling Primary Care Provider Reason for Visit * Reason Comments Medication Refill Encounter Details Date Type Department Care Team ([facility] st Contact Info) Description 07/02/2022 Refill Cardiovascular Medicine at [address] [place] [phone] Vadim Schaeffer MD [address] [place] [phone] Medication Refill Social History Tobacco Use [...] documented as of this encounter Care Teams Patient Intake Representative Relationship Specialty Start Date End Date Barbara Schilling PA [address] [place] [address], [place] [phone] PCP - General 08/26/17 documented as of this encounter
--- OUTSIDE RECORDS SUMMARY | 2025-02-02 13:39 | XMS_ITS | Clinical Summary ---
Author Organization Formerly [facility] Address [address] [place] [address] Care Team Providers Care Call Worker Person Name Role Phone Barbara Schilling PA-C Primary Care Provider [phone] Allergies Active Allergy Reactions Criticality Noted Date [...] iniety anticoagulation with NOAC indicated (hematology eval [place] 03/01/2018) 03/11/2018 Overview: Per hematology evaluation at [place] on 03/01/[address] 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 Care Teams Call Worker Person Relationship Specialty Start Date End Date Barbara Schilling PA-C PCP - General Trust Mail Clerk 08/27/17
--- OUTSIDE RECORDS SUMMARY | 2025-02-02 13:39 | XMS_ITS | Encounter Summary ---
Author Organization [facility] and [facility] Address [address] [place] [phone] Care Team Providers Care Parts Sales Advisor Name Role Phone Barbara Schilling Primary Care Provider [phone] Reason for Visit * Reason Comments Medication Refill Encounter Details Date Type Department Care Team ([facility] st Contact Info) Description 06/24/2021 Refill Cardiovascular Medicine at [address] [place] [phone] Vadim Schaeffer MD [address] [place] [phone] Medication Refill Social History Tobacco Use [...] documented as of this encounter Care Teams Parts Sales Advisor Relationship Specialty Start Date End Date Barbara Schilling PA [address] [place] [phone] PCP - General 08/26/17 documented as of this encounter
--- OUTSIDE RECORDS SUMMARY | 2025-02-02 13:40 | XMS_ITS | Encounter Summary ---
Author Organization [facility] and [facility] Address [address] [place] [phone] Care Team Providers Care Paper Bag Press Operator Name Role Phone Barbara Schilling Primary Care Provider [phone] Encounter Details Date Type Department Care Team ([facility] st Contact Info) Description 02/03/2018 Scanned Document [facility] Health Information Management [address] [place] [address] [phone] External, Provider Social History Tobacco Use Types [...] documented as of this encounter Care Teams Paper Bag Press Operator Relationship Specialty Start Date End Date Barbara Schilling PA [address] [place] [phone] PCP - General 08/26/17 documented as of this encounter
--- OUTSIDE RECORDS SUMMARY | 2025-02-02 13:40 | XMS_ITS | Encounter Summary ---
Author Organization [facility] and [facility] Address [address] [place] [phone] Care Team Providers Care Room Service Food Service Attendant Name Role Phone Barbara Schilling Primary Care Provider [phone] Encounter Details Date Type Department Care Team ([facility] st Contact Info) Description 09/27/2017 Scanned Document Cardiovascular Medicine at [address] [place] [phone] Vadim Schaeffer MD [address] [place] [phone] Social History Tobacco Use Types Packs/Day Years [...] documented as of this encounter Care Teams Room Service Food Service Attendant Relationship Specialty Start Date End Date Barbara Schilling PA [address] [place] [address], [place] [phone] PCP - General 08/26/17 documented as of this encounter
--- OUTSIDE RECORDS SUMMARY | 2025-02-02 13:40 | XMS_ITS | Encounter Summary ---
Author Organization [facility] and [facility] Address [address] [place] [phone] Care Team Providers Care Materials Assistant Name Role Phone Barbara Schilling Primary Care Provider [phone] Encounter Details Date Type Department Care Team ([facility] st Contact Info) Description 08/09/2017 Scanned Document Cardiovascular Medicine at [address] [place] [phone] Vadim Schaeffer MD [address] [place] [phone] Social History Tobacco Use Types Packs/Day Years [...] on filedocumented in this encounter Care Teams Materials Assistant Relationship Specialty Start Date End Date Barbara Schilling PA [address] [place] [phone] PCP - General 08/26/17 documented as of this encounter
--- OUTSIDE RECORDS SUMMARY | 2025-02-02 13:40 | XMS_ITS | Encounter Summary ---
Author Organization [facility] and [facility] Address [address] [place] [phone] Care Team Providers Care Data Processing Consultant Name Role Phone Barbara Schilling Primary Care Provider [phone] Encounter Details Date Type Department Care Team ([facility] st Contact Info) Description 09/20/2017 Scanned Document [facility] Health Information Management [address] [place] [phone] External, Provider Social History Tobacco Use Types [...] documented as of this encounter Care Teams Data Processing Consultant Relationship Specialty Start Date End Date Barbara Schilling PA [address] [place] [phone] PCP - General 08/26/17 documented as of this encounter
== END 2025-02-02 16:05 | disposition home or self-care (01) ==
LOC: HO.HMCFM 12:57
PROVIDERS: PCP Nurse Practitioner Family; Visit Provider Nurse Practitioner Family
DX: I10 Essential (primary) hypertension (principal)

== ENCOUNTER → 2025-02-02 12:57 | Outpatient (BNVA) | payer OTHER, SELFPAY | PROVIDERS: PCP Nurse Practitioner Family; Visit Provider Nurse Practitioner Family | DX: I10 Essential (primary) hypertension (principal); Z79.899 Other long term (current) drug therapy | CPT/HCPCS: 96127; 99212 ==

== ENCOUNTER 2025-03-09 15:08 | Outpatient (AMB) | payer OTHER, SELFPAY ==
--- NOTE | 2025-03-09 15:12 | MHC.PC.OV ---
Vital Signs 03/09/25 15:15 03/09/25 16:01 Height 5 ft 8 in Weight 217 lb 6 oz BMI 33.0 BP 140/83 H 124/78 Blood Pressure Location Lt brachial Rt femoral Position Sitting Sitting Respiration 16 Pulse 68 Pulse Source Pulse Oximeter Temp 97.6 F Temp Source Oral Pulse Oximetry (%) 97 Oxygen Delivery Method Room Air Intake Visit Reasons: 1 mos HTN Intake Note: patient here for 1 month follow up for HTN Co Director Required: No Allergies zoloft Adverse Reaction (Severe, Uncoded 03/09/25 15:51) Hallucinations Medication List - Last Reconciled 03/09/25 by Patricia Montes CNP atorvastatin 20 mg PO DAILY 90 days carbamide peroxide 6.5% (Debrox) 5 drps otic (ears) DAILY 4 days diltiazem HCl CD 120 mg PO DAILY 90 days losartan 50 mg PO BID 90 days pantoprazole 40 mg PO DAILY 90 days pregabalin 150 mg PO BID 90 days propranolol 10 mg PO BID 30 days rivaroxaban (Xarelto) 20 mg PO DAILY 90 days Tobacco use date assessed: 03/09/25 Dental Screening Dental Screen Date: 03/09/25 Did you have a dental visit in the last 12 months?: Yes Did you have a dental problem in the last 6 months where you did not have access to dental care?: No Was dental information given to patient?: Patient has dentist HPI HPI Comments History of Present Illness Details 49-year-old male presents for hypertension follow-up. He admits to taking his medications as prescribed without adverse reactions. He notes that he has been making healthy lifestyle choices. He states that his anxiety and depressive symptoms have been well-controlled. He offers no complaints and denies acute symptoms at this time. [facility] Medical History (Updated 01/16/25 @ 13:13 by Patricia Montes CNP) Depression Anxiety Memory loss H/O blood clots Palpitation Stroke High cholesterol High blood pressure Family History Father Alcohol abuse High blood pressure Cardiovascular disease Mother High blood pressure Maternal Grandmother Diabetes Maternal Grandfather Cardiovascular disease Other Gilbert syndrome Social History (Updated 01/16/25 @ 12:53 by Jelena Anne MA) Housing: House Alcohol intake: never Patient Tobacco Use Status: Current everyday Tobacco user Cigarette Packs Per Day: 10 Cigarettes Per Day: 10 e-Cigarette/Vaping Use: Currently Using Second Hand Smoke Exposure: No service: No Current occupational status: disabled Current occupational exposures/hazards: No Cognitive needs: Yes Hearing needs: No Vision needs: Yes Questionnaire Thrive Questionnaire Date Thrive assessed: 10/14/24 I am a: Patient What is your living situation today?: I have a steady place to live Within the past 12 months, did the food you bought not last and you didn't have the money to get more?: I choose not to answer this question Within the past 12 months, did you worry whether your food would run out before you got money to buy more?: I choose not to answer this question Do you have trouble paying for medicines?: I choose not to answer this question Do you have trouble getting transportation to medical appointments?: I choose not to answer this question Do you have trouble paying your heating and electricity bill?: I choose not to answer this question Do you have trouble taking care of your child, family member or friend?: I choose not to answer this question Do you have trouble with day-to-day activities such as bathing, preparing meals, shopping, managing finances, etc.?: I choose not to answer this question Are you currently unemployed and looking for a job?: I choose not to answer this question Are you interested in more education?: I choose not to answer this question Please select the resources that you would like help with: None THRIVE Score: 0 ROSELYN-7 AMB Questionnaire ROSELYN-7 Date ROSELYN - 7 assessed: 02/02/25 Source: Developed by Drs. Sergo Brady, Monse Nash, Tyler Casey and colleagues, with an educational lois from [employer]. Review of Systems Const Details: Const Denies chills, Denies fatigue, Denies fever(s), Denies headache(s) and Denies weakness ENT Denies dizziness and Denies headache(s) Card Denies chest pain, Denies lightheadedness, Denies dyspnea and Denies other (Palpitations) Resp Denies cough, Denies dyspnea, Denies wheezing and Denies other ( shortness of breath) GI Denies abdominal pain, Denies melena, Denies hematochezia, Denies change in bowel habits, Denies dyspepsia and Denies nausea Denies hematuria and Denies dysuria Musc Denies abnormal gait, Denies myalgias, Denies arthralgias, Denies numbness and Denies tingling Skin/Breast Denies rash, Denies unusual bruising and Denies wounds Neuro Denies abnormal gait, Denies dizziness, Denies headache(s), Denies memory loss, Denies numbness, Denies Sensory deficit (Neuro), Denies tingling and Denies weakness Psych Denies anxiety, Denies depression, Denies memory loss Endo Denies cold intolerance, Denies fatigue, Denies heat intolerance, Denies polydipsia and Denies polyuria Aller/Immun Denies wheezing Physical exam (Primary Care) Vital Signs: Last Vital Signs Temp 97.6 F 03/09/25 15:15 Pulse 68 03/09/25 15:15 Resp 16 03/09/25 15:15 BP 124/78 03/09/25 16:01 Pulse Ox 97 03/09/25 15:15 Oxygen Delivery Method Room Air 03/09/25 15:15 BMI result Body Mass Index 33.0 Tobacco/Smoking Status: Tobacco use Status Tobacco use date assessed 03/09/25 03/09/25 15:18 Patient Tobacco Use Status Current everyday Tobacco 03/09/25 15:13 e-Cigarette/Vaping Use Currently Using 03/09/25 15:13 Thrive Assessment: Date of Thrive Assessment Date Thrive assessed 10/14/24 03/09/25 15:13 Const Other: General: no acute distress and well developed Nutritional Appearance: well nourished Orientation/consciousness: patient oriented x3 HENMT Head: Yes normocephalic and Yes atraumatic Eyes General: appearance normal, both eyes and all related structures Pupils: Equal, round and reactive pupils present EOM: EOMs intact bilaterally Resp Effort & Inspection: normal respiratory effort Auscultation: clear to auscultation bilaterally Cardio Rate: regular rate Rhythm: regular rhythm Heart sounds: S1 normal heart sound present, S2 normal heart sound present, no gallops, no murmurs and no rubs GI Palpation (GI): No Abdominal aortic bruit present, Soft to palpation, nontender, No hepatosplenomegaly present and No Rebound tenderness present Auscultation: normal bowel sounds General: Yes no CVA tenderness Back/Spine/Pelvis Back: no CVA tenderness Cervical Spine: cervical ROM normal and No Cervical spine tenderness Thoracic/Lumbar Spine: thoraco-lumbar ROM normal, No pain with thoraco-lumbar ROM, No thoracic spinal tenderness and No lumbar spinal tenderness Extrem General: Yes normal to inspection, No edema and No calf tenderness Skin General: warm and dry. Normal skin color. Normal skin turgor Neuro General: patient oriented x3, gait normal and no focal neuro deficit Cranial nerves: Yes Equal, round and reactive pupils present Cognition (Neuro): normal cognition Gait exam (Neuro): Normal gait present Sensory Exam: No Sensory deficit (Neuro) Psych Appearance: grossly normal Affect: normal affect Attitude: cooperative Thought process: Normal thought process present Coding Level of Care Code Est Pt Level 3 (29590) Diagnoses High blood pressure I10 Assessment & Plan Assessment & Plan (1) High blood pressure: Code(s): I10 - Essential (primary) hypertension Category: Medical Plan: Resting blood pressure is 124/78, within goal of less than 130/80. Continue current treatment regimen. Low-sodium diet encouraged. Follow-up in 3 months or sooner with symptoms or concerns. Verbalized understanding and agreed with the plan.
[2025-03-09 15:15] VITALS: BP 140/83; PULSE 68; RESP 16; TEMP 36.4; O2SAT 97; BMI 33.0
[2025-03-09 16:01] VITALS: BP 124/78
== END 2025-03-09 16:16 | disposition home or self-care (01) ==
LOC: HO.HMCFM 15:09
PROVIDERS: PCP Nurse Practitioner Family; Visit Provider Nurse Practitioner Family
DX: I10 Essential (primary) hypertension (principal)

== ENCOUNTER → 2025-03-09 15:08 | Outpatient (BNVA) | payer OTHER, SELFPAY | PROVIDERS: PCP Nurse Practitioner Family; Visit Provider Nurse Practitioner Family | DX: I10 Essential (primary) hypertension (principal); Z79.899 Other long term (current) drug therapy | CPT/HCPCS: 99212 ==

== ENCOUNTER 2025-04-20 14:55 | Outpatient (AMB) | payer OTHER, SELFPAY ==
--- NOTE | 2025-04-20 14:58 | MHC.PC.OV ---
Vital Signs 04/20/25 15:03 Height 5 ft 8 in Weight 214 lb 2 oz BMI 32.6 BP 124/73 Blood Pressure Location Lt brachial Position Sitting Respiration 16 Pulse 73 Pulse Source Pulse Oximeter Temp 98.0 F Temp Source Oral Pulse Oximetry (%) 98 Oxygen Delivery Method Room Air Intake Visit Reasons: infection on his throat Intake Note: patient here c/o infection on throat went to ER and got antibiotics. but woke up today with throat hurting Fuel Cell Designer Required: No Allergies zoloft Adverse Reaction (Severe, Uncoded 03/09/25 15:51) Hallucinations Medication List - Last Reconciled 04/20/25 by Patricia Montes CNP atorvastatin 20 mg PO DAILY 90 days carbamide peroxide 6.5% (Debrox) 5 drps otic (ears) DAILY 4 days diltiazem HCl CD 120 mg PO DAILY 90 days losartan 50 mg PO BID 90 days pantoprazole 40 mg PO DAILY 90 days pregabalin 150 mg PO BID 90 days propranolol 10 mg PO BID 30 days rivaroxaban (Xarelto) 20 mg PO DAILY 90 days Tobacco use date assessed: 04/20/25 Dental Screening Dental Screen Date: 04/20/25 Did you have a dental visit in the last 12 months?: Yes Did you have a dental problem in the last 6 months where you did not have access to dental care?: No Was dental information given to patient?: Patient has dentist HPI HPI Comments History of Present Illness Details 49-year-old male presents with complaints of sore throat. He notes that he had an overnight stay at a Hospital in [place], [place] for peritonsillar overnight. He was discharged amoxicillin and completed course of the medication. He woke up this morning with a sore throat which has spontaneously resolved. No acute symptoms at this time. [facility] Medical History (Updated 04/20/25 @ 15:32 by Patricia Montes CNP) Depression Anxiety Memory loss H/O blood clots Palpitation Stroke High cholesterol High blood pressure Family History Father Alcohol abuse High blood pressure Cardiovascular disease Mother High blood pressure Maternal Grandmother Diabetes Maternal Grandfather Cardiovascular disease Other Gilbert syndrome Social History (Updated 01/16/25 @ 12:53 by Jelena Anne MA) Housing: House Alcohol intake: never Patient Tobacco Use Status: Current everyday Tobacco user Cigarette Packs Per Day: 10 Cigarettes Per Day: 10 e-Cigarette/Vaping Use: Currently Using Second Hand Smoke Exposure: No service: No Current occupational status: disabled Current occupational exposures/hazards: No Cognitive needs: Yes Hearing needs: No Vision needs: Yes Questionnaire Thrive Questionnaire Date Thrive assessed: 10/14/24 I am a: Patient What is your living situation today?: I have a steady place to live Within the past 12 months, did the food you bought not last and you didn't have the money to get more?: I choose not to answer this question Within the past 12 months, did you worry whether your food would run out before you got money to buy more?: I choose not to answer this question Do you have trouble paying for medicines?: I choose not to answer this question Do you have trouble getting transportation to medical appointments?: I choose not to answer this question Do you have trouble paying your heating and electricity bill?: I choose not to answer this question Do you have trouble taking care of your child, family member or friend?: I choose not to answer this question Do you have trouble with day-to-day activities such as bathing, preparing meals, shopping, managing finances, etc.?: I choose not to answer this question Are you currently unemployed and looking for a job?: I choose not to answer this question Are you interested in more education?: I choose not to answer this question Please select the resources that you would like help with: None THRIVE Score: 0 ROSELYN-7 AMB Questionnaire ROSELYN-7 Date ROSELYN - 7 assessed: 02/02/25 Source: Developed by Drs. Sergo Brady, Monse Nash, Tyler Casey and colleagues, with an educational lois from [employer]. Review of Systems Const Details: Const Denies chills, Denies fatigue, Denies fever(s), Denies headache(s) and Denies weakness ENT Reports as per HPI Card Denies chest pain, Denies lightheadedness, Denies dyspnea and Denies other (Palpitations) Resp Denies cough, Denies dyspnea, Denies wheezing and Denies other ( shortness of breath) GI Denies abdominal pain, Denies melena, Denies hematochezia, Denies change in bowel habits, Denies dyspepsia and Denies nausea Denies hematuria and Denies dysuria Musc Denies abnormal gait, Denies myalgias, Denies arthralgias, Denies numbness and Denies tingling Skin/Breast Denies rash, Denies unusual bruising and Denies wounds Neuro Denies abnormal gait, Denies dizziness, Denies headache(s), Denies memory loss, Denies numbness, Denies Sensory deficit (Neuro), Denies tingling and Denies weakness Psych Denies anxiety, Denies depression, Denies memory loss Endo Denies cold intolerance, Denies fatigue, Denies heat intolerance, Denies polydipsia and Denies polyuria Aller/Immun Denies wheezing Physical exam (Primary Care) Vital Signs: Last Vital Signs Temp 98.0 F 04/20/25 15:03 Pulse 73 04/20/25 15:03 Resp 16 04/20/25 15:03 BP 124/73 04/20/25 15:03 Pulse Ox 98 04/20/25 15:03 Oxygen Delivery Method Room Air 04/20/25 15:03 BMI result Body Mass Index 32.6 Tobacco/Smoking Status: Tobacco use Status Tobacco use date assessed 04/20/25 04/20/25 15:05 Patient Tobacco Use Status Current everyday Tobacco 04/20/25 15:05 e-Cigarette/Vaping Use Currently Using 04/20/25 15:05 Thrive Assessment: Date of Thrive Assessment Date Thrive assessed 10/14/24 04/20/25 15:05 Const Other: General: no acute distress and well developed Nutritional Appearance: well nourished Orientation/consciousness: patient oriented x3 HENMT Head is normocephalic Bilateral ear canal and TM are normal Nasal turbinates and oropharynx are pink and moist Sinuses are nontender with palpation No auricular or cervical lymphadenopathy Eyes General: appearance normal, both eyes and all related structures Pupils: Equal, round and reactive pupils present EOM: EOMs intact bilaterally Resp Effort & Inspection: normal respiratory effort Auscultation: clear to auscultation bilaterally Cardio Rate: regular rate Rhythm: regular rhythm Heart sounds: S1 normal heart sound present, S2 normal heart sound present, no gallops, no murmurs and no rubs GI Palpation (GI): No Abdominal aortic bruit present, Soft to palpation, nontender, No hepatosplenomegaly present and No Rebound tenderness present Auscultation: normal bowel sounds General: Yes no CVA tenderness Back/Spine/Pelvis Back: no CVA tenderness Cervical Spine: cervical ROM normal and No Cervical spine tenderness Thoracic/Lumbar Spine: thoraco-lumbar ROM normal, No pain with thoraco-lumbar ROM, No thoracic spinal tenderness and No lumbar spinal tenderness Extrem General: Yes normal to inspection, No edema and No calf tenderness Skin General: warm and dry. Normal skin color. Normal skin turgor Neuro General: patient oriented x3, gait normal and no focal neuro deficit Cranial nerves: Yes Equal, round and reactive pupils present Cognition (Neuro): normal cognition Gait exam (Neuro): Normal gait present Sensory Exam: No Sensory deficit (Neuro) Psych Appearance: grossly normal Affect: normal affect Attitude: cooperative Thought process: Normal thought process present Coding Level of Care Code Est Pt Level 3 (74685) Diagnoses Sore throat J02.9 Assessment & Plan Assessment & Plan (1) Sore throat: Code(s): J02.9 - Acute pharyngitis, unspecified Category: Medical Plan: Resolved. Normal throat exam. No lymphadenopathy. Follow-up as needed. Verbalized understanding and agreed with the plan.
--- OUTSIDE RECORDS SUMMARY | 2025-04-20 14:59 | XMS_ITS | Clinical Summary ---
Author Organization [facility] Address [address] [place] [address] Care Team Providers Care Naval Engineer Name Role Phone Barbara Schilling PA-C Primary Care Provider [phone] Allergies Active Allergy Reactions Criticality Noted Date [...] iniety anticoagulation with NOAC indicated (hematology eval [facility] 03/01/2018) 03/11/2018 Overview: Per hematology evaluation at [facility] on 03/01/[address] Lozano, no evidence [...] syndrome 09/09/2017 Coronary artery disease invo lving [place] coronary artery of [place] heart without angina pectoris 09/04/2017 H/O gastroesophageal reflux (GERD) 09/04/2017 unprovoked/idiopathic R gastroc DVT 08/28/2017 1 11/04/2016 Bilateral pulmonary embolism, unprovoked 017 09/04/2017 Overview: [facility] pulmonary infarction 09/04/2017 Apical mural thrombus s/p [place] 08/04/2017 Overview: From [facility] history OV La[place] TELLEZ 08/26/2017 Echo 08/26/2017: [...] of precerebral artery 08/01/2015 12/03/2015 Palpitations: eval [facility] w [facility] 07/2017, profuse ventricular ectopy [...] 68 03/26/2022 3:01 PM EDT Temperature 36.6 C (97.9 F) 03/26/2022 3:01 PM EDT Respiratory Rate 18 03/26/2022 3:01 PM EDT [...] Cancer Screening (Colonoscopy) 2022 Influenza Vaccine (#1) 2025 , 09/14/2019, 07/20/2018, Additional history exists DTap / Tdap / Td (2 - Td or Tdap) 01/31/2029 01/31/2019 RSV Ped < 20 months Aged Out No longe r eligible based on patient's age to complete this topic Advance Directives For more information, please contact: [phone] Documents on File Type Date Recorded Patient Wire Weaver Cloth Expl anation Advance Directive and Living Will [...] following way: per unit protocol. Care Teams Naval Engineer Relationship Specialty Start Date End Date Barbara Schilling PA-C PCP - General Sewing Machine Operator Floorperson 08/27/17
--- OUTSIDE RECORDS SUMMARY | 2025-04-20 14:59 | XMS_ITS | Clinical Summary ---
Author Organization [facility] Address [address] [place] [address] Care Team Providers Care Acoustic Intelligence Specialist Name Role Phone Babrara Schilling Primary Care Provider [phone] Allergies Active Allergy Reactions Criticality Noted Date [...] 58 06/21/2020 11:52 AM EDT Temperature 36.8 C (98.3 F) 06/21/2020 11:52 AM EDT Respiratory Rate 18 06/21/2020 11:52 AM EDT [...] - 19+ 3-dose series) 1996 Colonoscopy 2022 COVID-19 Vaccine ( - 2023-2 5 season) 2024 Influenza Vaccine 05/11/2025 Pneumococcal Vaccine: Pediat camila (0-5 Years) and At-Risk Patients (6 to 49 Years) Aged Out No longer eligible b ased on patient's age to complete this topic Insurance BLUE CROSS OUT OF STATE - PPO Advance Directives * Full Code (Latest Code Status on File) Date Activated Date Inactivated Comments 06/21/2020 12:46 AM Question Answer Comments Decision Thoroughly Discussed with: Unable to Di scuss Care Teams Acoustic Intelligence Specialist Relationship Specialty Start Date End Date Barbara Schilling PA PCP - General 10/27/18
--- OUTSIDE RECORDS SUMMARY | 2025-04-20 15:00 | XMS_ITS | Clinical Summary ---
Author Organization [facility] Address [address] [place] [address] Care Team Providers Care Automatic Machine Attendant Name Role Phone Barbara Schilling Primary Care Provider [phone] Surgical History Surgery Date Site/Laterality Comments UPPER GASTROINTESTINAL ENDOSCOPY PROCEDURE:UPPER GASTROINTESTINAL ENDOSCOPY CARDIAC CATHETERIZATION 07/23/2015 N/A PROCEDURE:CARDIAC CATHETERIZATION;COMMENT:Proce dure: LEFT HEART CATHETERIZATION ? PTCA , CORONARY ANGIO , FEMORAL; Surgeon: Colleen Jaeger MD; Location: [facility]; Service: Cardiology; Laterality: N/A; Medical History Medical [...] 07/23/15 DX:Acute CVA (cerebrovascul ar accident) ([facility]);COMMENT:Left MCA History of echocardiogram 07/23/15 DX:His tory of echocardiogram;COMMENT:EF 55 6 5 percent, normal RV systolic function, moderate sized pedunculated multilobular LV mass, mobile, located along septum History of stroke 09/29/2016 DX:History of stroke Hx of myocardial infarction 08/04/2017 DX:H x of myocardial infarction Hyperlipidemia 09/12/2015 DX:Hyperlipidemi a Pulmonary embolism ([facility] V24, [facility] V28) DX:Pulmonary embolism ([facility]) DVT (deep venous thrombosis) ([facility] V24, [facility] V28) DX:DVT (deep venous thrombos is) ([facility]) Family History Medical History Relation Name Comments [...] 5 Years) and At-Risk Patients (6 to 49 Years) (1 of 2 - PCV) 1996 Colorectal Cancer Screening: Colonoscopy 09/12/2022 Depression Screening 09/12/2022 HIV Screening 09/12/2022 Hepatitis C Screening 09/12/2022 Social Influencers of Health Screening 09/12/2022 Hypertension/CHF/CAD Annual BMP Blood Test 03/26/2023 03/26/2022, 03/26/2022, 04/20/2021, Additional history exists COVID-19 Vaccine ( season) 2024 Cholesterol Screening (Lipid Panel) 07/28/2024 07/28/2019 Influenza Vaccine (#1) 2025 1, 09/14/2019, 07/20/2018, Additional history exists DTaP,Tdap,and Td [...] age to complete this topic Care Teams Automatic Machine Attendant Relationship Specialty Start Date End Date Barbara Schilling PA PCP - General Parts Sales Advisor 08/27/17
--- OUTSIDE RECORDS SUMMARY | 2025-04-20 15:00 | XMS_ITS ---
Author Name [facility] Organization Unknown Encounters Encounter Type Encounter Reason Primary Diagnosis Location Date Ambulatory [facility] 07/21/2024 Care Team Organization Name Specialty Phone Email Start Date End Da te [facility] 2024
--- OUTSIDE RECORDS SUMMARY | 2025-04-20 15:00 | XMS_ITS | Clinical Summary ---
Author Organization [address] Address [address] [place] [address] Care Team Providers Care Fisher Weir Name Role Phone Barbara Schilling Primary Care Provider [phone] Allergies Active Allergy Reactions Criticality Noted Date [...] of right leg August 28, 2017 Immunizations Immunization Administration Dates Next Due Influenza, injectable, MDCK, quad, preservative free 08/27/2017 Family History Medical History Relation Name Comments Stroke Brother Relation Name Status Comments Brother Social History Tobacco Use Types Packs/Day Years Used Date Smoking Tobacco: Every Day Cigarettes 0.5 6.5 Started: 10/11/2018 Smokeless Tobacco: Never Tobacco Cessation:Counseling [...] 96 04/24/2022 1:26 PM EDT Temperature 36.4 C (97.6 F) 06/18/2020 10:15 AM EDT Respiratory Rate 18 06/18/2020 10:15 AM EDT [...] - 144 mmol/L 06/18/2020 11:30 AM EDT COUNT INCLUDES THE [facility] DEPARTMENT OF LABORATORY MEDICINE Potassium 4.2 3.3 - 5.1 mmol/L 06/18/2020 11:30 AM EDT COUNT INCLUDES THE [facility] DEPARTMENT OF LABORATORY MEDICINE Comment:Sample slightly hemo lyzed. Results may be falsely elevated due to hemolysis. Chloride 105 98 - 107 mmol/L 06/18/2020 11:30 AM EDT COUNT INCLUDES THE [facility] DEPARTMENT OF LABORATORY MEDICINE CO2 25 20 - 30 mmol/L 06/18/2020 11:30 AM EDT COUNT INCLUDES THE [facility] DEPARTMENT OF LABORATORY MEDICINE Anion Gap 11 7 - 17 06/18/2020 11:30 AM EDT COUNT INCLUDES THE [facility] DEPARTMENT OF LABORATORY MEDICINE Glucose 97 70 - 100 mg/dL 06/18/2020 11:30 AM EDT COUNT INCLUDES THE [facility] DEPARTMENT OF LABORATORY MEDICINE BUN 6 6 - 20 mg/dL 06/18/2020 11:30 AM EDT COUNT INCLUDES THE [facility] DEPARTMENT OF LABORATORY MEDICINE Creatinine 0.90 0.40 - 1.30 mg/dL 06/18/2020 11:30 AM EDT COUNT INCLUDES THE [facility] DEPARTMENT OF LABORATORY MEDICINE Calcium 9.1 8.8 - 10.2 mg/dL 06/18/2020 11:30 AM T COUNT INCLUDES THE [facility] DEPARTMENT OF LABORATORY MEDICINE BUN/Creatinine Ratio 6.7(L) 8.0 - 23.0 06/18/2020 11:30 AM EDT COUNT INCLUDES THE [facility] DEPARTMENT OF LABORATORY MEDICINE eGFR (Afr Amer) >60 >60 mL/min/1.7 3m2 06/18/2020 11:30 AM EDT COUNT INCLUDES THE [facility] DEPARTMENT OF LABORATORY MEDICINE Comment: Values under 60mL/min/1.73m2 may indicate CKD if noted for more than 3 months. eGFR is only valid if creatinine is at steady state. eGFR (NON -Adali n) >60 >60 mL/min/1.7 3m2 06/18/2020 11:30 AM EDT COUNT INCLUDES THE [facility] DEPARTMENT OF LABORATORY MEDICINE Comment: Values under 60mL/min/1.73m2 may indicate CKD if noted for more than 3 months. eGFR is only valid if creatinine is at steady state. Blood Venipuncture / Unknown 06/18/2020 10:51 AM EDT 06/18/2020 11:00 AM EDT Leonie ELISE LAB BLOOD ORDERABLES Final Result Performing Organization Address City/State/[facility] de Phone Number COUNT INCLUDES THE [facility] DEPARTMENT OF LABORATORY MEDICINE [address] [place] [address] from Last 3 Months or Most Recently Relevant to Health Maintenance Insurance [facility] Care Teams Fisher Weir Relationship Specialty Start Date End Date Barbara Schilling PA [facility] - General 08/26/17
[2025-04-20 15:03] VITALS: BP 124/73; PULSE 73; RESP 16; TEMP 36.7; O2SAT 98; BMI 32.6
== END 2025-04-20 15:37 | disposition home or self-care (01) ==
LOC: HO.HMCFM 14:56
PROVIDERS: PCP Nurse Practitioner Family; Visit Provider Nurse Practitioner Family
DX: J02.9 Acute pharyngitis, unspecified (principal)

== ENCOUNTER → 2025-04-20 14:55 | Outpatient (BNVA) | payer OTHER, SELFPAY | PROVIDERS: PCP Nurse Practitioner Family; Visit Provider Nurse Practitioner Family | DX: J02.9 Acute pharyngitis, unspecified (principal) | CPT/HCPCS: 99212 ==

== ENCOUNTER 2025-05-04 09:06 | Outpatient (AMB) | payer OTHER, SELFPAY ==
[2025-05-04 09:09] VITALS: BP 120/80; PULSE 69; BMI 32.8
--- NOTE | 2025-05-04 09:09 | A.OFFVIS_ITS ---
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/Hypercholesterolemia Intake Note: New patient dx htn and hypercholestrerolemia was seen in [place] in the past maybe 2 years ago Environmental Assistant Required: No Allergies zoloft Adverse Reaction (Severe, Uncoded 03/09/25 15:51) Hallucinations Medication List - Last Reconciled 05/04/25 by Milton Ogden MD atorvastatin 20 mg PO DAILY 90 days carbamide peroxide 6.5% (Debrox) 5 drps otic (ears) DAILY 4 days diltiazem HCl CD 120 mg PO DAILY 90 days losartan 50 mg PO BID 90 days pantoprazole 40 mg PO DAILY 90 days pregabalin 150 mg PO BID 90 days propranolol 10 mg PO BID 30 days rivaroxaban (Xarelto) 20 mg PO DAILY 90 days HPI Comments Details: Sergo was referred here for management of hyperlipidemia. Although has long prior cardiovascular history which is difficult to piece together. Patient was [place] and said many years ago in 2014 he was having tachycardia and at that time he was advised cardiac catheterization and ended up having complication although details of this is not available. It seems like he had a myocardial infarction during the cardiac catheterization although there were no coronary artery disease noted and subsequently 2 days later he also had a stroke which left him with neurologic disability of aphasia. This has left him very upset and psychiatrically unstable. He said this is significantly altered in his life. He does have some balance issues but does not have any motor weakness or sensory weakness but continues to have aphasia. He does also have depression and panic attacks. 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 He has never had any coronary interventions with myocardial infarction. He also carries a history of SVT as well as PVCs. Currently not having any symptoms of prolonged palpitation. Says about few days ago he had some palpitation but that resolved within few sec. denies any exertional chest pain or shortness of breath. Denies any orthopnea, PND. He said he is currently doing well on this medications and does not want to change anything. Last echocardiogram done and received from [facility] was technically limited study and had shown mildly reduced to low normal LV ejection fraction 45-55%. He was recommended definity but he said he absolutely refuses to get any IV. He was recently restarted on atorvastatin therapy and that has led to significant improvement in his LDL below 70 mg/dL. [facility] Medical History Depression Anxiety Memory loss H/O blood clots Palpitation Stroke High cholesterol High blood pressure Family History Father Alcohol abuse High blood pressure Cardiovascular disease Mother High blood pressure Maternal Grandmother Diabetes Maternal Grandfather Cardiovascular disease Other Gilbert syndrome Social History Housing: House Alcohol intake: never Patient Tobacco Use Status: Current everyday Tobacco user Cigarette Packs Per Day: 10 Cigarettes Per Day: 10 e-Cigarette/Vaping Use: Currently Using Second Hand Smoke Exposure: No service: No Current occupational status: disabled Current occupational exposures/hazards: No Cognitive needs: Yes Hearing needs: No Vision needs: Yes Review of Systems Const Denies chills, Denies daytime sleepiness, Denies fatigue, Denies fever(s), Denies frequent falls, Denies poor appetite, Denies snoring, Denies stops leonel thing during sleep, Denies weakness, Denies weight gain and Denies weight loss Eyes Denies loss of vision ENT Denies dizziness and Denies hearing loss Card Denies chest pain, Denies claudication, Denies leg edema, Denies lightheadedness, Denies palpitations, Denies dyspnea, Denies dyspnea on exertion and Denies orthopnea Resp Denies cough, Denies excessive phlegm production, Denies dyspnea, Denies dyspnea on exertion, Denies snoring and Denies wheezing GI Denies abdominal pain, Denies hematochezia, Denies change in bowel habits, Denies nausea and Denies vomiting Denies dysuria and Denies urinary frequency Musc Denies arthralgias, Denies muscle weakness, Denies numbness and Denies other (frequent falls) Skin/Breast Denies nail changes and Denies rash Neuro Denies dizziness, Denies frequent falls, Denies loss of vision, Denies memory loss, Denies numbness and Denies weakness Psych Denies depression and Denies memory loss Endo Denies fatigue and Denies palpitations Wilver/Lymph Reports easy bruising and Reports other (anemia) Aller/Immun Denies wheezing Physical Exam Vital Signs: Last Vital Signs Pulse 69 05/04/25 09:09 BP 120/80 05/04/25 09:09 BMI result Body Mass Index 32.8 Const General: cooperative, comfortable, no acute distress, alert, awake and Physically active Nutritional Appearance: overweight Orientation/consciousness: patient oriented x3 Limitations: no limitations HEENT Head: Yes normocephalic and Yes atraumatic Neck Neck: Yes trachea midline, Yes supple and Yes no JVD Resp Effort & Inspection: normal respiratory effort Auscultation: clear to auscultation bilaterally Cardio Jugular venous distension: no JVD Palpation: normal PMI Rate: regular rate Rhythm: regular rhythm Heart sounds: S1 normal heart sound present, S2 normal heart sound present, no click, no gallops and no murmurs GI Auscultation: normal bowel sounds Skin General skin exam: no rashes or lesions noted Neuro General: patient oriented x3 and no focal motor deficits Speech: Expressive aphasia present Extrem General: Yes no clubbing, cyanosis or edema Psych Affect: Irritable affect present Office Procedures EKG Details: EKG shows normal sinus rhythm with possible inferior infarct otherwise no acute ST T wave changes [id number], Complete Assessment & Plan Assessment & Plan (1) Cardiomyopathy: Code(s): I42.9 - Cardiomyopathy, unspecified Category: Medical Plan: Cardiomyopathy with mild lead reduced to low normal LV ejection fraction by last echocardiogram. Advise repeat echocardiogram. No signs or symptoms of heart failure. Continue neurohormonal modulation with losartan and on propranolol although for anxiety. Continue the same. Signs and symptoms of heart failure were discussed. Advised to repeat echocardiogram. He is currently not willing to change any medical therapy. (2) High blood pressure: Code(s): I10 - Essential (primary) hypertension Category: Medical Plan: High blood pressure which is currently well optimized on current therapy. Importance of good blood pressure control was discussed. It seems like he had a myocardial infarction probably related to complication of diagnostic angiogram and did not have any significant coronary disease. Would like to obtain old records. He is currently on statin therapy with well optimized LDL. Blood pressure is also well optimized on current therapy. Low-salt diet was discussed. Stress mitigation strategy and anxiety mitigation was discussed. (3) Cardiac arrhythmia: Code(s): I49.9 - Cardiac arrhythmia, unspecified Category: Medical Plan: Prior history of cardiac arrhythmias appears to be SVT although this is unclear. Need to obtain old records. He said he has been well suppressed on Cardizem therapy and propranolol therapy and does not want to change his therapy. Avoidance of stimulants was discussed. Stress mitigation strategies was discussed. Will follow up in the clinic in 1 year's time, sooner p.r.n.. Thank you for allowing me to partake in his care. Will try to obtain his old records from [place] Orders: Orders [place] echo transthoracic complete Today I42.9 - Cardiomyopathy, unspecified Coding Level of Care Code New Pt Level 4 (13139) Complex EM visit Add On G2211 Diagnoses Cardiomyopathy I42.9 High blood pressure I10 Cardiac arrhythmia I49.9 CPT Codes EKG - CPT: 36065-[id number], Complete ([id number])
--- OUTSIDE RECORDS SUMMARY | 2025-05-04 09:22 | XMS_ITS | Clinical Summary ---
Author Organization [facility] Address [address] [place] [address] Care Team Providers Care Engine Repairer Service Name Role Phone Barbara Schilling Primary Care Provider [phone] Allergies Active Allergy Reactions Criticality Noted Date [...] with: Unable to Di scuss Care Teams Engine Repairer Service Relationship Specialty Start Date End Date Barbara Schilling PA PCP - General 10/27/18
--- OUTSIDE RECORDS SUMMARY | 2025-05-04 09:22 | XMS_ITS | Clinical Summary ---
Author Organization [address] Address [address] [place] [address] Care Team Providers Care Metal Solderer Name Role Phone Barbara Schilling Primary Care Provider [phone] Allergies Active Allergy Reactions Criticality Noted Date [...] Date Smoking Tobacco: Every Day Cigarettes 0.5 6.6 Started: 10/11/2018 Smokeless Tobacco: Never Tobacco Cessation:Counseling [...] - 144 mmol/L 06/18/2020 11:30 AM EDT [facility] Potassium 4.2 3.3 - 5.1 mmol/L 06/18/2020 11:30 AM EDT [facility] Comment:Sample slightly hemo lyzed. Results may be falsely elevated due to hemolysis. Chloride 105 98 - 107 mmol/L 06/18/2020 11:30 AM EDT [facility] CO2 25 20 - 30 mmol/L 06/18/2020 11:30 AM EDT [facility] Anion Gap 11 7 - 17 06/18/2020 11:30 AM EDT [facility] Glucose 97 70 - 100 mg/dL 06/18/2020 11:30 AM EDT [facility] BUN 6 6 - 20 mg/dL 06/18/2020 11:30 AM EDT [facility] Creatinine 0.90 0.40 - 1.30 mg/dL 06/18/2020 11:30 AM EDT [facility] Calcium 9.1 8.8 - 10.2 mg/dL 06/18/2020 11:30 AM T [facility] BUN/Creatinine Ratio 6.7(L) 8.0 - 23.0 06/18/2020 11:30 AM EDT [facility] eGFR (Afr Amer) >60 >60 mL/min/1.7 3m2 06/18/2020 11:30 AM EDT [facility] Comment: Values under 60mL/min/1.73m2 may indicate CKD if noted for more than 3 months. eGFR is only valid if creatinine is at steady state. eGFR (NON -Adali n) >60 >60 mL/min/1.7 3m2 06/18/2020 11:30 AM EDT [facility] Comment: Values under 60mL/min/1.73m2 may indicate CKD if noted for more than 3 months. eGFR is only valid if creatinine is at steady state. Blood Venipuncture / Unknown 06/18/2020 10:51 AM EDT 06/18/2020 11:00 AM EDT Leonie ELISE LAB BLOOD ORDERABLES Final Result Performing Organization Address City/State/[facility] de Phone Number [facility]ICINE [address] [place] [address] from Last 3 Months or Most Recently Relevant to Health Maintenance Insurance [facility] Care Teams Metal Solderer Relationship Specialty Start Date End Date Barbara Schilling PA [facility] - General 08/26/17
--- OUTSIDE RECORDS SUMMARY | 2025-05-04 09:22 | XMS_ITS | Clinical Summary ---
Author Organization [facility] Address [address] [place] [address] Care Team Providers Care Internal Communications Writer Name Role Phone Barbara Schilling Primary Care Provider [phone] Surgical History Surgery Date Site/Laterality Comments UPPER GASTROINTESTINAL ENDOSCOPY PROCEDURE:UPPER GASTROINTESTINAL ENDOSCOPY CARDIAC CATHETERIZATION 07/23/2015 N/A PROCEDURE:CARDIAC CATHETERIZATION;COMMENT:Proce dure: LEFT HEART CATHETERIZATION ? PTCA , CORONARY ANGIO , FEMORAL; Surgeon: Colleen Jaeger MD; Location: 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; Service: Cardiology; Laterality: N/A; Medical History Medical [...] V28) 07/23/15 DX:Acute CVA (cerebrovascul ar accident) ([facility]);COMMENT:Left MCA History of echocardiogram 07/23/15 DX:His tory of echocardiogram;COMMENT:EF 55 6 5 percent, normal RV systolic function, moderate sized pedunculated multilobular LV mass, mobile, located along septum History of stroke 09/29/2016 DX:History of stroke Hx of myocardial infarction 08/04/2017 DX:H x of myocardial infarction Hyperlipidemia 09/12/2015 DX:Hyperlipidemi a Pulmonary embolism ([facility] V24, [facility] V28) DX:Pulmonary embolism ([facility]) DVT (deep venous thrombosis) ([facility] V24, [facility] V28) DX:DVT (deep venous thrombos is) ([facility]) Family History Medical History Relation Name Comments [...] PCV) 1996 Colorectal Cancer Screening: Colonoscopy 09/12/2022 HIV Screening 09/12/2022 Hepatitis C Screening 09/12/2022 Social Influencers of Health Screening 09/12/2022 Hypertension/CHF/CAD Annual BMP Blood Test 03/26/2023 03/26/2022, 03/26/2022, 04/20/2021, Additional history exists COVID-19 Vaccine ( season) 2024 Cholesterol Screening (Lipid Panel) 07/28/2024 07/28/2019 Depression Screening 10/11/2024 Influenza Vaccine (#1) 2025 1, 09/14/2019, 07/20/2018, [...] age to complete this topic Care Teams Internal Communications Writer Relationship Specialty Start Date End Date Barbara Schilling PA PCP - General Agricultural Mechanic 08/27/17
--- OUTSIDE RECORDS SUMMARY | 2025-05-04 09:22 | XMS_ITS | Clinical Summary ---
Author Organization [facility] Address [address] [place] [address] Care Team Providers Care Assembly Line Inspector Name Role Phone Barbara Schilling PA-C Primary Care Provider [phone] Allergies Active Allergy Reactions Criticality Noted Date [...] iniety anticoagulation with NOAC indicated (hematology eval [place] 03/01/2018) 03/11/2018 Overview: Per hematology evaluation at [place] on 03/01/[address] Lozano, no evidence [...] syndrome 09/09/2017 Coronary artery disease invo lving [place] coronary artery of [place] heart without angina pectoris 09/04/2017 H/O gastroesophageal reflux (GERD) 09/04/2017 unprovoked/idiopathic R gastroc DVT 08/28/2017 1 11/04/2016 Bilateral pulmonary embolism, unprovoked 017 09/04/2017 Overview: [facility] pulmonary infarction 09/04/2017 Apical mural thrombus s/p SD 08/04/2017 Overview: From [facility] history OV [facility] TELLEZ 08/26/2017 Echo 08/26/2017: [...] of precerebral artery 08/01/2015 12/03/2015 Palpitations: eval [place] w [facility] 07/2017, profuse ventricular ectopy [...] Advance Directives For more information, please contact: [phone] Documents on File Type Date Recorded Patient Eligibility Examiner Expl anation Advance Directive and Living Will [...] following way: per unit protocol. Care Teams Assembly Line Inspector Relationship Specialty Start Date End Date Barbara Schilling PA-C PCP - General Chief Strategy Officer 08/27/17
== END 2025-05-04 10:10 | disposition home or self-care (01) ==
LOC: HO.HCS 09:07
PROVIDERS: PCP Nurse Practitioner Family; Visit Provider Internal Medicine Cardiovascular Disease
DX: I42.9 Cardiomyopathy, unspecified (principal); I10 Essential (primary) hypertension; I49.9 Cardiac arrhythmia, unspecified
CPT/HCPCS: 93010; 99204; G2211

== ENCOUNTER → 2025-05-04 09:06 | Outpatient (BNVA) | payer OTHER, SELFPAY | PROVIDERS: PCP Nurse Practitioner Family; Visit Provider Internal Medicine Cardiovascular Disease | DX: I10 Essential (primary) hypertension (principal); I42.9 Cardiomyopathy, unspecified; I49.9 Cardiac arrhythmia, unspecified; R94.31 Abnormal electrocardiogram [ECG] [EKG] | CPT/HCPCS: 93005; 99202 ==

== ENCOUNTER 2025-05-14 10:11 | Outpatient (AMB) | payer OTHER, SELFPAY ==
[2025-05-14 10:36] VITALS: BP 164/106; PULSE 70; TEMP 36.8; O2SAT 97; BMI 32.1
--- NOTE | 2025-05-14 10:36 | MHC.OFFWIV ---
Intake Vital Signs 05/14/25 10:36 05/14/25 11:54 Height 5 ft 8 in Weight 211 lb BMI 32.1 BP 164/106 H 150/110 H Blood Pressure Location Lt brachial Lt brachial Position Sitting Sitting Pulse 70 Pulse Source Pulse Oximeter Temp 98.2 F Temp Source Oral Pulse Oximetry (%) 97 Oxygen Delivery Method Room Air Intake Visit Reasons: EP-severe headaches & lower back pain Patient Tobacco Use Status: Current everyday Tobacco user Director Oracle Required: No Allergies sertraline (From Zoloft) Allergy (Severe, Verified 05/14/25 10:43) Hallucinations Do you need a note to return to daycare/school/sports/work: Yes HPI HPI Comments History of Present Illness Details History - The patient is a 49-year-old male presenting with back pain and headache. - Reports severe lower back pain, exacerbated by lifting heavy objects at work, with no prior imaging or physical therapy. - History of stroke and heart attack, with ongoing severe headaches and loss of equilibrium. - History of pulmonary embolism and hypertension, with current high blood pressure due to medication non-adherence. - He did not take his medications this morning. - Works long hours at [employer], contributing to physical strain and symptom exacerbation. - He has to lift boxes all day and drive. - He has not had a fall. - He denies saddle anesthesia, numbness, tingling, or incontinence. Physical Exam General: cooperative, healthy appearing and comfortable, patient oriented x3 Head: Normal to inspection, normocephalic/atraumatic Effort & Inspection: Normal respiratory effort and able to speak in complete sentences. Cardiac: RRR, no M/R/G noted. Normal S1 and S2. Respiratory: Clear to auscultation bilaterally. No w/r/r noted. Back/spine: No CVA tenderness bilaterally. Cervical, thoracic and lumbar spine normal to inspection. Cervical ROM normal, no midline spinous tenderness noted. Thoracic ROM normal, lumbar ROM normal. No midline vertebral spinous tenderness noted. No step offs noted. No TTP of the thoracic paraspinous or paravertebral muscles. TTP of the right lumbar paraspinous and paravertebral muscles. No SI joint tenderness noted. DTR are 2+ on the lower extremities noted. Ambulates with a steady gait. Extremities: Straight leg raise test negative on right; Straight leg raise test negative on left; motor strength normal 5/5 bilaterally. Able to lift legs straight up without pain. Neuro: Sensation intact. Patient was informed and verbally consented to the use of an ambient scribe for clinic note documentation during this visit. [facility] Medical History Depression Anxiety Memory loss H/O blood clots Palpitation Stroke High cholesterol High blood pressure Family History Father Alcohol abuse High blood pressure Cardiovascular disease Mother High blood pressure Maternal Grandmother Diabetes Maternal Grandfather Cardiovascular disease Other Gilbert syndrome Social History Housing: House Alcohol intake: never Patient Tobacco Use Status: Current everyday Tobacco user Cigarette Packs Per Day: 10 Cigarettes Per Day: 10 e-Cigarette/Vaping Use: Currently Using Second Hand Smoke Exposure: No service: No Current occupational status: disabled Current occupational exposures/hazards: No Cognitive needs: Yes Hearing needs: No Vision needs: Yes Review of Systems Const All systems reviewed & are unremarkable except as noted in HPI and below Physical Exam Vital Signs: Last Vital Signs Temp 98.2 F 05/14/25 10:36 Pulse 70 05/14/25 10:36 BP 150/110 H 05/14/25 11:54 Pulse Ox 97 05/14/25 10:36 Oxygen Delivery Method Room Air 05/14/25 10:36 BMI result Body Mass Index 32.1 Assessment & Plan Assessment & Plan (1) Back pain: Code(s): M54.9 - Dorsalgia, unspecified Qualifiers: Back pain location: low back pain Chronicity: acute Back pain laterality: bilateral Sciatica presence: without sciatica Qualified Code(s): M54.50 - Low back pain, unspecified Plan Most likely arthritis vs muscle strain vs sciatica plan 1. Back Pain - Plan to obtain an x-ray of the spine to assess for any structural abnormalities. - Referral to physical therapy to address musculoskeletal issues and improve function. - Prescribe medication for pain management, considering patient's inability to take NSAIDs. 2. Hypertension - could be the reason for his headaches - Recheck blood pressure before leaving the clinic to assess current status. - Discuss medication adherence to manage blood pressure effectively. Orders: Orders XR lumbar spine 2-3V 05/14/25 M54.9 - Dorsalgia, unspecified PT Evaluation and Treatment 05/14/25 M54.9 - Dorsalgia, unspecified Coding Level of Care Code Est Pt Level 4 (59015) Diagnoses Acute bilateral low back pain without sciatica M54.50 Back pain location: low back pain Chronicity: acute Back pain laterality: bilateral Sciatica presence: without sciatica
--- OUTSIDE RECORDS SUMMARY | 2025-05-14 10:48 | XMS_ITS | Clinical Summary ---
Author Organization [facility] Address [address] [place] [address] Care Team Providers Care Billet Assembler Name Role Phone Barbara Schilling PA-C Primary Care Provider [phone] Allergies Active Allergy Reactions Criticality Noted Date [...] iniety anticoagulation with NOAC indicated (hematology eval [place] 03/01/2018) 03/11/2018 Overview: Per hematology evaluation at [place] on 03/01/[address] Lozano, no evidence [...] syndrome 09/09/2017 Coronary artery disease invo lving [place] coronary artery of [place] heart without angina pectoris 09/04/2017 H/O gastroesophageal reflux (GERD) 09/04/2017 unprovoked/idiopathic R gastroc DVT 08/28/2017 1 11/04/2016 Bilateral pulmonary embolism, unprovoked 017 09/04/2017 Overview: [facility] pulmonary infarction 09/04/2017 Apical mural thrombus s/p [place] 08/04/2017 Overview: From [place] history OV [place] 08/26/2017 Echo 08/26/2017: [...] Advance Directives For more information, please contact: [phone] Documents on File Type Date Recorded Patient Community Service Officer Expl anation Advance Directive and Living Will [...] following way: per unit protocol. Care Teams Billet Assembler Relationship Specialty Start Date End Date Barbara Schilling PA-C PCP - General Security Nurse 08/27/17
--- OUTSIDE RECORDS SUMMARY | 2025-05-14 10:48 | XMS_ITS | Clinical Summary ---
Author Organization [address] Address [address] [place] [id number] Care Team Providers Care Hosiery Bagger Name Role Phone Barbara Schilling Primary Care Provider [phone] Allergies Active Allergy Reactions Criticality Noted Date [...] Deep venous thrombosis of right leg August Immunizations Immunization Administration Dates Next Due Influenza, [...] - 144 mmol/L 06/18/2020 11:30 AM EDT [facility] Potassium 4.2 3.3 - 5.1 mmol/L 06/18/2020 11:30 AM EDT [facility] Comment:Sample slightly hemo lyzed. Results may be falsely elevated due to hemolysis. Chloride 105 98 - 107 mmol/L 06/18/2020 11:30 AM EDT [facility] CO2 25 20 - 30 mmol/L 06/18/2020 11:30 AM EDT [facility] Anion Gap 11 7 - 17 06/18/2020 11:30 AM EDT [facility] Glucose 97 70 - 100 mg/dL 06/18/2020 11:30 AM EDT [facility] BUN 6 6 - 20 mg/dL 06/18/2020 11:30 AM EDT [facility] Creatinine 0.90 0.40 - 1.30 mg/dL 06/18/2020 11:30 AM EDT [facility] Calcium 9.1 8.8 - 10.2 mg/dL 06/18/2020 11:30 AM EDT [facility] BUN/Creatinine Ratio 6.7(L) 8.0 - 23.0 06/18/2020 11:30 AM EDT [facility] eGFR (Afr Amer) >60 >60 mL/min/1.7 3m2 06/18/2020 11:30 AM EDT [facility] Comment: Values under 60mL/min/1.73m2 may indicate CKD if noted for more than 3 months. eGFR is only valid if creatinine is at steady state. eGFR (NON -Adali n) >60 >60 mL/min/1.7 3m2 06/18/2020 11:30 AM EDT [facility] Comment: Values under 60mL/min/1.73m2 may indicate CKD if noted for more than 3 months. eGFR is only valid if creatinine is at steady state. Blood Venipuncture / Unknown 06/18/2020 10:51 AM EDT 06/18/2020 11:00 AM EDT [facility] LAB BLOOD ORDERABLES Final Result [facility] [address] [place] [address], [facility] [phone] from Last 3 Months or Most Recently Relevant to Health Maintenance Insurance [facility] BS BS [facility] Care Teams Hosiery Bagger Relationship Specialty Start Date End Date Barbara Schilling PA PCP - General 08/26/17
--- OUTSIDE RECORDS SUMMARY | 2025-05-14 10:48 | XMS_ITS | Clinical Summary ---
Author Organization [facility] Address [address] [place] [address] Care Team Providers Care Nutrition Faculty Member Name Role Phone Barbara Schilling Primary Care Provider [phone] Surgical History Surgery Date Site/Laterality Comments UPPER GASTROINTESTINAL ENDOSCOPY PROCEDURE:UPPER GASTROINTESTINAL ENDOSCOPY CARDIAC CATHETERIZATION 07/23/2015 N/A PROCEDURE:CARDIAC CATHETERIZATION;COMMENT:Proce dure: LEFT HEART CATHETERIZATION ? PTCA , CORONARY ANGIO , FEMORAL; Surgeon: Colleen Jaeger MD; Location: [facility]; Service: Cardiology; Laterality: N/A; Medical History Medical [...] V28) 07/23/15 DX:Acute CVA (cerebrovascul ar accident) ([facility]);COMMENT:Left MCA History of echocardiogram 07/23/15 DX:His tory of echocardiogram;COMMENT:EF 55 6 5 percent, normal RV systolic function, moderate sized pedunculated multilobular LV mass, mobile, located along septum History of stroke 09/29/2016 DX:History of stroke Hx of myocardial infarction 08/04/2017 DX:H x of myocardial infarction Hyperlipidemia 09/12/2015 DX:Hyperlipidemi a Pulmonary embolism ([facility] V24, [facility] V28) DX:Pulmonary embolism ([facility]) DVT (deep venous thrombosis) ([facility] V24, [facility] V28) DX:DVT (deep venous thrombos is) ([facility]) Family History Medical History Relation [...] age to complete this topic Care Teams Nutrition Faculty Member Relationship Specialty Start Date End Date Barbara Schilling PA PCP - General Powder Room Attendant 08/27/17
[2025-05-14 11:54] VITALS: BP 150/110
== END 2025-05-14 11:56 | disposition home or self-care (01) ==
PROVIDERS: PCP Nurse Practitioner Family; Visit Provider Physician Assistant Medical
DX: M54.50 Low back pain, unspecified (principal)

== ENCOUNTER 2025-05-14 10:11 | Outpatient (REF) | payer OTHER, SELFPAY ==
--- NOTE | ~2025-05-14 | XR_ITS ---
EXAMINATION: XR LUMBAR SPINE 2-3 VIEWS HISTORY: M54.9 - Dorsalgia, unspecified COMPARISON: There are no prior studies for comparison. FINDINGS: AP, lateral, and coned down views of the lumbar spine are submitted. Osseous mineralization is normal. Five nonrib-bearing lumbar vertebral bodies are identified, maintaining normal height and alignment without evidence of fracture or spondylolisthesis. There is anterior spurring at multiple levels. The intervertebral disc spaces are preserved. The posterior elements are intact. The visualized paraspinal soft tissues are unremarkable. XR/XR lumbar spine 2-3V IMPRESSION: Mild degenerative changes as described. Electronically signed by: Sergo Sy MD 05/14/2025 01:50 PM EDT
--- OUTSIDE RECORDS SUMMARY | 2025-05-14 13:48 | XMS_ITS | Clinical Summary ---
Author Organization [facility] Address [address] [place] [address] Care Team Providers Care Manager Forensic Name Role Phone Barbara Schilling Primary Care Provider [phone] Allergies Active Allergy Reactions Criticality Noted Date [...] with: Unable to Di scuss Care Teams Manager Forensic Relationship Specialty Start Date End Date Barbara Schilling PA PCP - General 10/27/18
== END 2025-05-14 10:12 | disposition home or self-care (01) ==
LOC: HO.HMGCX 10:11
PROVIDERS: PCP Nurse Practitioner Family; Visit Provider Physician Assistant Medical
DX: M54.50 Low back pain, unspecified (principal); I10 Essential (primary) hypertension; R51.9 Headache, unspecified; F17.210 Nicotine dependence, cigarettes, uncomplicated
CPT/HCPCS: 72100; 99212

== ENCOUNTER → 2025-05-14 13:38 | Outpatient (BNV) | payer OTHER, SELFPAY | PROVIDERS: PCP Nurse Practitioner Family; Visit Provider Radiology Diagnostic Radiology | DX: M54.50 Low back pain, unspecified (principal) | CPT/HCPCS: 72100 ==

== ENCOUNTER 2025-05-21 12:17 | Outpatient (AMB) | payer OTHER, SELFPAY ==
--- NOTE | 2025-05-21 12:20 | MHC.PC.OV ---
Vital Signs 05/21/25 12:26 Height 5 ft 8 in Weight 212 lb 2 oz BMI 32.2 BP 142/88 H Blood Pressure Location Rt brachial Position Sitting Respiration 16 Pulse 75 Pulse Source Pulse Oximeter Temp 98.6 F Temp Source Temporal Artery Scan Pulse Oximetry (%) 95 Oxygen Delivery Method Room Air Intake Visit Reasons: ed [facility]/covid and letter of work leave Intake Note: Sergo presents in the office today for an ED Follow up. Patient needs letter for work. Allergies sertraline (From Zoloft) Allergy (Severe, Verified 05/21/25 12:39) Hallucinations Medication List - Last Reconciled 05/21/25 by Patricia Montes CNP atorvastatin 20 mg PO DAILY 90 days carbamide peroxide 6.5% (Debrox) 5 drps otic (ears) DAILY 4 days diltiazem HCl CD 120 mg PO DAILY 90 days losartan 50 mg PO BID 90 days pantoprazole 40 mg PO DAILY 90 days pregabalin 150 mg PO BID 90 days propranolol 10 mg PO BID 30 days rivaroxaban (Xarelto) 20 mg PO DAILY 90 days Tobacco use date assessed: 05/21/25 Dental Screening Dental Screen Date: 05/21/25 HPI HPI Comments History of Present Illness Details 49-year-old male presents for ED discharge follow-up. He was evaluated in treated at [facility] ED on 05/19/2025 for 1-2 months of intermittent back pain and headache. He also noted right-sided ear pain and congestion symptoms. His right ear had significant amount of cerumen even after irrigation. He tested positive for COVID-19. He was discharged home on tizanidine 2 mg 3 times daily (#15) and Debrox. He reports ongoing intermittent bilateral headache to both temples and intermittent stabbing lower back pain. He denies fall, injury, or trauma. His work involves heavy lifting and twisting. He has been taking tizanidine as prescribed without significant relief. He also takes Tylenol as needed. He is not interested in narcotics. He denies loss of bowel or bladder control. No tingling or numbness. He requests work note and brought forms to be completed for his employer for work absence. [facility] Medical History Depression Anxiety Memory loss H/O blood clots Palpitation Stroke High cholesterol High blood pressure Family History Father Alcohol abuse High blood pressure Cardiovascular disease Mother High blood pressure Maternal Grandmother Diabetes Maternal Grandfather Cardiovascular disease Other Gilbert syndrome Social History (Updated 05/21/25 @ 12:25 by Jelena Anne MA) Housing: House Alcohol intake: never Patient Tobacco Use Status: Current everyday Tobacco user Cigarette Packs Per Day: 10 Cigarettes Per Day: 10 e-Cigarette/Vaping Use: Currently Using Second Hand Smoke Exposure: No Use of substances other than those prescribed or required for medical reasons: No service: No Current occupational status: disabled Current occupational exposures/hazards: No Cognitive needs: Yes Hearing needs: No Vision needs: Yes Questionnaire Thrive Questionnaire Date Thrive assessed: 10/14/24 I am a: Patient What is your living situation today?: I have a steady place to live Within the past 12 months, did the food you bought not last and you didn't have the money to get more?: I choose not to answer this question Within the past 12 months, did you worry whether your food would run out before you got money to buy more?: I choose not to answer this question Do you have trouble paying for medicines?: I choose not to answer this question Do you have trouble getting transportation to medical appointments?: I choose not to answer this question Do you have trouble paying your heating and electricity bill?: I choose not to answer this question Do you have trouble taking care of your child, family member or friend?: I choose not to answer this question Do you have trouble with day-to-day activities such as bathing, preparing meals, shopping, managing finances, etc.?: I choose not to answer this question Are you currently unemployed and looking for a job?: I choose not to answer this question Are you interested in more education?: I choose not to answer this question Please select the resources that you would like help with: None THRIVE Score: 0 ROSELYN-7 AMB Questionnaire ROSELYN-7 Date ROSELYN - 7 assessed: 02/02/25 Source: Developed by Drs. Sergo Brady, Monse Nash, Tyler Casey and colleagues, with an educational lois from [employer]. Review of Systems Const Details: Const Denies chills, Denies fatigue, Denies fever(s), Reports headache(s) and Denies weakness ENT Denies dizziness and Reports headache(s) Card Denies chest pain, Denies lightheadedness, Denies dyspnea and Denies other (Palpitations) Resp Denies cough, Denies dyspnea, Denies wheezing and Denies other ( shortness of breath) GI Denies abdominal pain, Denies melena, Denies hematochezia, Denies change in bowel habits, Denies dyspepsia and Denies nausea Denies hematuria and Denies dysuria Musc Reports as per HPI Skin/Breast Denies rash, Denies unusual bruising and Denies wounds Neuro Denies abnormal gait, Denies dizziness, Denies headache(s), Denies memory loss, Denies numbness, Denies Sensory deficit (Neuro), Denies tingling and Denies weakness Psych Denies anxiety, Denies depression, Denies memory loss Endo Denies cold intolerance, Denies fatigue, Denies heat intolerance, Denies polydipsia and Denies polyuria Aller/Immun Denies wheezing Physical exam (Primary Care) Vital Signs: Last Vital Signs Temp 98.6 F 05/21/25 12:26 Pulse 75 05/21/25 12:26 Resp 16 05/21/25 12:26 BP 142/88 H 05/21/25 12:26 Pulse Ox 95 05/21/25 12:26 Oxygen Delivery Method Room Air 05/21/25 12:26 BMI result Body Mass Index 32.2 Tobacco/Smoking Status: Tobacco use Status Tobacco use date assessed 05/21/25 05/21/25 12:29 Patient Tobacco Use Status Current everyday Tobacco 05/21/25 12:25 e-Cigarette/Vaping Use Currently Using 05/21/25 12:25 Thrive Assessment: Date of Thrive Assessment Date Thrive assessed 10/14/24 05/21/25 12:20 Const Other: General: no acute distress and well developed Nutritional Appearance: well nourished Orientation/consciousness: patient oriented x3 HENMT Head: Yes normocephalic and Yes atraumatic Eyes General: appearance normal, both eyes and all related structures Pupils: Equal, round and reactive pupils present EOM: EOMs intact bilaterally Resp Effort & Inspection: normal respiratory effort Auscultation: clear to auscultation bilaterally Cardio Rate: regular rate Rhythm: regular rhythm Heart sounds: S1 normal heart sound present, S2 normal heart sound present, no gallops, no murmurs and no rubs GI Palpation (GI): No Abdominal aortic bruit present, Soft to palpation, nontender, No hepatosplenomegaly present and No Rebound tenderness present Auscultation: normal bowel sounds General: Yes no CVA tenderness Back/Spine/Pelvis Back: no CVA tenderness Cervical Spine: cervical ROM normal and No Cervical spine tenderness Thoracic/Lumbar Spine: thoraco-lumbar ROM normal, No pain with thoraco-lumbar ROM, No thoracic spinal tenderness and positive lumbar spinal tenderness Extrem General: Yes normal to inspection, No edema and No calf tenderness Skin General: warm and dry. Normal skin color. Normal skin turgor Neuro General: patient oriented x3, gait normal and no focal neuro deficit Cranial nerves: Yes Equal, round and reactive pupils present Cognition (Neuro): normal cognition Gait exam (Neuro): Normal gait present Sensory Exam: No Sensory deficit (Neuro) Psych Appearance: grossly normal Affect: normal affect Attitude: cooperative Thought process: Normal thought process present Coding Level of Care Code Est Pt Level 4 (99790) Diagnoses COVID-19 U07.1 Headache R51.9 Low back pain M54.50 Hospital discharge follow-up Z09 High blood pressure I10 Assessment & Plan Assessment & Plan (1) COVID-19: Code(s): U07.1 - COVID-19 Category: Medical Plan: Advised to take Tylenol as needed. Adequate hydration encouraged. Work note given and forms completed for his employer. Follow-up as needed. Verbalized understanding and agreed with the plan. (2) Headache: Code(s): R51.9 - Headache, unspecified Category: Medical Plan: Likely due to COVID-19. Plan as above. (3) Low back pain: Code(s): M54.50 - Low back pain, unspecified Category: Medical Plan: Intermittent low back pain times 2 months. Lumbar spine tenderness to palpation. No overt injury or trauma noted. Tylenol as needed. Warm/cool compresses encouraged. She was evaluated at [facility] walk-in clinic on 05/14; x-ray of lumbar spine was benign; she was referred to physical therapy. Follow-up with worsening or new symptoms. Verbalized understanding and agreed with the plan. (4) Hospital discharge follow-up: Code(s): Z09 - Encounter for follow-up examination after completed treatment for conditions other than malignant neoplasm Category: Medical Plan: Plan as above. (5) High blood pressure: Code(s): I10 - Essential (primary) hypertension Category: Medical Plan: Resting blood pressure is 142/88, above goal of less than 130/80. Likely attributed to current illness. Continue current treatment regimen. Adequate hydration and low-sodium diet encouraged. Follow-up as scheduled early next month. Return sooner with symptoms or concerns. Verbalized understanding and agreed with the plan.
[2025-05-21 12:26] VITALS: BP 142/88; PULSE 75; RESP 16; TEMP 37; O2SAT 95; BMI 32.2
--- OUTSIDE RECORDS SUMMARY | 2025-05-21 12:33 | XMS_ITS | Clinical Summary ---
Author Organization [facility] Address [address] [place] [address] Care Team Providers Care Embedded Systems Designer Name Role Phone Barbara Schilling PA-C Primary Care Provider [phone] Allergies Active Allergy Reactions Criticality Noted Date [...] iniety anticoagulation with NOAC indicated (hematology eval [place] 03/01/2018) 03/11/2018 Overview: Per hematology evaluation at [place] on 03/01/[address] Lozano, no evidence [...] syndrome 09/09/2017 Coronary artery disease invo lving [place] coronary artery of [place] heart without angina pectoris 09/04/2017 H/O gastroesophageal reflux (GERD) 09/04/2017 unprovoked/idiopathic R gastroc DVT 08/28/2017 1 11/04/2016 Bilateral pulmonary embolism, unprovoked 017 09/04/2017 Overview: [facility] pulmonary infarction 09/04/2017 Apical mural thrombus s/p [place] 08/04/2017 Overview: From [place] history OV [place] TELLEZ 08/26/2017 Echo 08/26/2017: [...] Advance Directives For more information, please contact: [phone] Documents on File Type Date Recorded Patient Shift Manager Expl anation Advance Directive and Living [...] following way: per unit protocol. Care Teams Embedded Systems Designer Relationship Specialty Start Date End Date Barbara Schilling PA-C PCP - General Fire Safety Manager 08/27/17
--- OUTSIDE RECORDS SUMMARY | 2025-05-21 12:33 | XMS_ITS | Clinical Summary ---
Author Organization [facility] Address [address] [place] [address] Care Team Providers Care Tonal Regulator Name Role Phone Barbara Schilling Primary Care Provider [phone] Surgical History Surgery Date Site/Laterality Comments UPPER GASTROINTESTINAL ENDOSCOPY PROCEDURE:UPPER GASTROINTESTINAL ENDOSCOPY CARDIAC CATHETERIZATION 07/23/2015 N/A PROCEDURE:CARDIAC CATHETERIZATION;COMMENT:Proce dure: LEFT HEART CATHETERIZATION ? PTCA , CORONARY ANGIO , FEMORAL; Surgeon: Colleen Jaeger MD; Location: [facility]; Service: Cardiology; Laterality: N/A; Medical History Medical [...] V28) 07/23/15 DX:Acute CVA (cerebrovascul ar accident) ([facility]);COMMENT:Left MCA History of echocardiogram 07/23/15 DX:His tory of echocardiogram;COMMENT:EF 55 6 5 percent, normal RV systolic function, moderate sized pedunculated multilobular LV mass, mobile, located along septum History of stroke 09/29/2016 DX:History of stroke Hx of myocardial infarction 08/04/2017 DX:H x of myocardial infarction Hyperlipidemia 09/12/2015 DX:Hyperlipidemi a Pulmonary embolism ([facility] V24, [facility] V28) DX:Pulmonary embolism ([facility]) DVT (deep venous thrombosis) ([facility] V24, [facility] V28) DX:DVT (deep venous thrombos is) ([facility]) Family History Medical History Relation Name [...] age to complete this topic Care Teams Tonal Regulator Relationship Specialty Start Date End Date Barbara Schilling PA PCP - General Glass Vial Bending Conveyor Feeder 08/27/17
--- OUTSIDE RECORDS SUMMARY | 2025-05-21 12:33 | XMS_ITS | Clinical Summary ---
Author Organization [address] Address [address] [place] [id number] Care Team Providers Care Head Of Quality Name Role Phone Barbara Schilling Primary Care Provider [phone] Allergies Active Allergy Reactions Criticality Noted Date [...] on patient's age to complete this topic Pneumococcal Vaccine (2 - 49 years) Aged Out No longer eligible based on patient's age to complete this topic Procedures Procedure Name Priority Date/Time Associated Diagnosis Comments BASIC METABOLIC PANEL STAT 06/18/2020 10:51 AM EDT from Last 3 Months or Most Recently Relevant to Health Maintenance Results * (ABNORMAL) Basic metabolic panel (06/18/2020 10:51 AM EDT) Sodium 141 136 - 144 mmol/L 06/18/2020 11:30 AM EDT [facility] Potassium 4.2 3.3 - 5.1 mmol/L 06/18/2020 11:30 AM EDT [facility] Comment:Sample slightly hemo lyzed. Results may be falsely elevated due to hemolysis. Chloride 105 98 - 107 mmol/L 06/18/2020 11:30 AM EDT [facility] CO2 25 20 - 30 mmol/L 06/18/2020 11:30 AM EDT [facility] Anion Gap 11 7 - 17 06/18/2020 11:30 AM EDT [facility] Glucose 97 70 - 100 mg/dL 06/18/2020 11:30 AM EDT [facility] BUN 6 6 - 20 mg/dL 06/18/2020 11:30 AM EDT [facility] Creatinine 0.90 0.40 - 1.30 mg/dL 06/18/2020 11:30 AM EDT [facility] Calcium 9.1 8.8 - 10.2 mg/dL 06/18/2020 11:30 AM EDT [facility] BUN/Creatinine Ratio 6.7(L) 8.0 - 23.0 06/18/2020 11:30 AM EDT [facility] eGFR (Afr Amer) >60 >60 mL/min/1.7 3m2 06/18/2020 11:30 AM EDT [facility] Comment: Values under 60mL/min/1.73m2 may indicate CKD if noted for more than 3 months. eGFR is only valid if creatinine is at steady state. eGFR (NON -Adali n) >60 >60 mL/min/1.7 3m2 06/18/2020 11:30 AM EDT [facility] Comment: Values under 60mL/min/1.73m2 may indicate CKD if noted for more than 3 months. eGFR is only valid if creatinine is at steady state. Blood Venipuncture / Unknown 06/18/2020 10:51 AM EDT 06/18/2020 11:00 AM EDT [facility] BLOOD ORDERABLES Final Result Performing Organization Address City/State/[facility] Co de Phone Number [facility] [address] [place] [address], [facility] [phone] from Last 3 Months or Most Recently Relevant to Health Maintenance Insurance [facility] BS [facility] Care Teams Head Of Quality Relationship Specialty Start Date End Date Barbara Schilling PA PCP - General 08/26/17
--- OUTSIDE RECORDS SUMMARY | 2025-05-21 12:33 | XMS_ITS | Clinical Summary ---
Author Organization [facility] Address [address] [place] [address] Care Team Providers Care Parts Fabricator Name Role Phone Barbara Schilling Primary Care Provider [phone] Allergies Active Allergy Reactions Criticality Noted Date [...] with: Unable to Di scuss Care Teams Parts Fabricator Relationship Specialty Start Date End Date Barbara Schilling PA PCP - General 10/27/18
== END 2025-05-21 13:33 | disposition home or self-care (01) ==
LOC: HO.HMCFM 12:18
PROVIDERS: PCP Nurse Practitioner Family; Visit Provider Nurse Practitioner Family
DX: U07.1 COVID-19 (principal); R51.9 Headache, unspecified; M54.50 Low back pain, unspecified; Z09 Encounter for follow-up examination after completed treatment for conditions other than malignant neoplasm; I10 Essential (primary) hypertension

== ENCOUNTER → 2025-05-21 12:17 | Outpatient (BNVA) | payer OTHER, SELFPAY | PROVIDERS: PCP Nurse Practitioner Family; Visit Provider Nurse Practitioner Family | DX: H92.01 Otalgia, right ear (principal); R51.9 Headache, unspecified; U07.1 COVID-19; M54.50 Low back pain, unspecified; I10 Essential (primary) hypertension; Z09 Encounter for follow-up examination after completed treatment for conditions other than malignant neoplasm | CPT/HCPCS: 99212 ==

== ENCOUNTER 2025-06-04 11:11 | Outpatient (AMB) | payer OTHER, SELFPAY ==
--- NOTE | 2025-06-04 11:12 | MHC.PC.OV ---
Vital Signs 06/04/25 11:16 06/04/25 11:50 Height 5 ft 8 in Weight 212 lb 2 oz BMI 32.2 BMI Reason not done Patient refused/unable BP 158/109 H 160/90 H Blood Pressure Location Lt brachial Lt brachial Position Sitting Sitting Respiration 16 Pulse 71 76 Pulse Source Pulse Oximeter Auscultation Temp 97.8 F Temp Source Oral Pulse Oximetry (%) 97 Oxygen Delivery Method Room Air Intake Visit Reasons: [place] paperwork Human Factors Scientist Required: No Allergies sertraline (From Zoloft) Allergy (Severe, Verified 06/04/25 11:45) Hallucinations Medication List - Last Reconciled 06/04/25 by Patricia Montes CNP atorvastatin 20 mg PO DAILY 90 days carbamide peroxide 6.5% (Debrox) 5 drps otic (ears) DAILY 4 days diltiazem HCl CD 120 mg PO DAILY 90 days losartan 50 mg PO BID 90 days pantoprazole 40 mg PO DAILY 90 days pregabalin 150 mg PO BID 90 days propranolol 10 mg PO BID 30 days rivaroxaban (Xarelto) 20 mg PO DAILY 90 days Tobacco use date assessed: 06/04/25 Dental Screening Dental Screen Date: 06/04/25 Did you have a dental visit in the last 12 months?: Yes Did you have a dental problem in the last 6 months where you did not have access to dental care?: No Was dental information given to patient?: Patient has dentist HPI HPI Comments History of Present Illness Details 49-year-old male presents for hospital discharge follow-up and [place] paperwork for that visit. He was admitted between 03/17/2025 and 03/18/2025 at [facility] for right peritonsillar abscess. Labs were benign except for elevated white blood count, 20.78 with 93% neutrophil which was deemed secondary to dexamethasone. He was discharged on Augmentin and advised to follow-up with PCP in 2-4 days. He admits to taking his medications as prescribed without adverse reactions. He note that he completed course of Augmentin. He denies sore throat at this time. He notes that his blood pressure maybe elevated because I'm pissed, would not elaborate. He is upset that his [place] paperwork has not been completed. Discharge summary for this hospitalization was not available until recently. [facility] Medical History Depression Anxiety Memory loss H/O blood clots Palpitation Stroke High cholesterol High blood pressure Family History Father Alcohol abuse High blood pressure Cardiovascular disease Mother High blood pressure Maternal Grandmother Diabetes Maternal Grandfather Cardiovascular disease Other Gilbert syndrome Social History (Updated 05/21/25 @ 12:25 by Jelena Anne MA) Housing: House Alcohol intake: never Patient Tobacco Use Status: Current everyday Tobacco user Cigarette Packs Per Day: 10 Cigarettes Per Day: 10 e-Cigarette/Vaping Use: Currently Using Second Hand Smoke Exposure: No service: No Current occupational status: disabled Current occupational exposures/hazards: No Cognitive needs: Yes Hearing needs: No Vision needs: Yes Questionnaire Thrive Questionnaire Date Thrive assessed: 10/14/24 I am a: Patient What is your living situation today?: I have a steady place to live Within the past 12 months, did the food you bought not last and you didn't have the money to get more?: I choose not to answer this question Within the past 12 months, did you worry whether your food would run out before you got money to buy more?: I choose not to answer this question Do you have trouble paying for medicines?: I choose not to answer this question Do you have trouble getting transportation to medical appointments?: I choose not to answer this question Do you have trouble paying your heating and electricity bill?: I choose not to answer this question Do you have trouble taking care of your child, family member or friend?: I choose not to answer this question Do you have trouble with day-to-day activities such as bathing, preparing meals, shopping, managing finances, etc.?: I choose not to answer this question Are you currently unemployed and looking for a job?: I choose not to answer this question Are you interested in more education?: I choose not to answer this question Please select the resources that you would like help with: None THRIVE Score: 0 ROSELYN-7 AMB Questionnaire ROSELYN-7 Date ROSELYN - 7 assessed: 02/02/25 Source: Developed by Drs. Sergo Brady, Monse Nash, Tyler Casey and colleagues, with an educational lois from [employer]. Review of Systems Const Details: Const Denies chills, Denies fatigue, Denies fever(s), Denies headache(s) and Denies weakness ENT Denies dizziness and Denies headache(s) Card Denies chest pain, Denies lightheadedness, Denies dyspnea and Denies other (Palpitations) Resp Denies cough, Denies dyspnea, Denies wheezing and Denies other ( shortness of breath) GI Denies abdominal pain, Denies melena, Denies hematochezia, Denies change in bowel habits, Denies dyspepsia and Denies nausea Denies hematuria and Denies dysuria Musc Denies abnormal gait, Denies myalgias, Denies arthralgias, Denies numbness and Denies tingling Skin/Breast Denies rash, Denies unusual bruising and Denies wounds Neuro Denies abnormal gait, Denies dizziness, Denies headache(s), Denies memory loss, Denies numbness, Denies Sensory deficit (Neuro), Denies tingling and Denies weakness Psych Denies anxiety, Denies depression, Denies memory loss Endo Denies cold intolerance, Denies fatigue, Denies heat intolerance, Denies polydipsia and Denies polyuria Aller/Immun Denies wheezing Physical exam (Primary Care) Vital Signs: Last Vital Signs Temp 97.8 F 06/04/25 11:16 Pulse 76 06/04/25 11:50 Resp 16 06/04/25 11:16 BP 160/90 H 06/04/25 11:50 Pulse Ox 97 06/04/25 11:16 Oxygen Delivery Method Room Air 06/04/25 11:16 BMI result Body Mass Index 32.2 Tobacco/Smoking Status: Tobacco use Status Tobacco use date assessed 06/04/25 06/04/25 11:17 Patient Tobacco Use Status Current everyday Tobacco 06/04/25 11:17 e-Cigarette/Vaping Use Currently Using 06/04/25 11:17 Thrive Assessment: Date of Thrive Assessment Date Thrive assessed 10/14/24 06/04/25 11:17 Const Other: General: no acute distress and well developed Nutritional Appearance: well nourished Orientation/consciousness: patient oriented x3 HENMT Head: Yes normocephalic and Yes atraumatic Eyes General: appearance normal, both eyes and all related structures Pupils: Equal, round and reactive pupils present EOM: EOMs intact bilaterally Resp Effort & Inspection: normal respiratory effort Auscultation: clear to auscultation bilaterally Cardio Rate: regular rate Rhythm: regular rhythm Heart sounds: S1 normal heart sound present, S2 normal heart sound present, no gallops, no murmurs and no rubs GI Palpation (GI): No Abdominal aortic bruit present, Soft to palpation, nontender, No hepatosplenomegaly present and No Rebound tenderness present Auscultation: normal bowel sounds General: Yes no CVA tenderness Back/Spine/Pelvis Back: no CVA tenderness Cervical Spine: cervical ROM normal and No Cervical spine tenderness Thoracic/Lumbar Spine: thoraco-lumbar ROM normal, No pain with thoraco-lumbar ROM, No thoracic spinal tenderness and No lumbar spinal tenderness Extrem General: Yes normal to inspection, No edema and No calf tenderness Skin General: warm and dry. Normal skin color. Normal skin turgor Neuro General: patient oriented x3, gait normal and no focal neuro deficit Cranial nerves: Yes Equal, round and reactive pupils present Cognition (Neuro): normal cognition Gait exam (Neuro): Normal gait present Sensory Exam: No Sensory deficit (Neuro) Psych Appearance: grossly normal Affect: Flat Attitude: Irritable, anxious, cooperative Thought process: Normal thought process present Coding Level of Care Code Est Pt Level 4 (84850) Diagnoses High blood pressure I10 Anxiety F41.9 Hospital discharge follow-up Z09 Assessment & Plan Assessment & Plan (1) High blood pressure: Code(s): I10 - Essential (primary) hypertension Category: Medical Plan: Resting blood pressure is 160/90, above goal of less than 140/90. He notes that his blood pressure maybe elevated because I'm pissed, would not elaborate. He is upset that his [facility] paperwork has not been completed. Discharge summary for this hospitalization was not available until recently. He appears anxious and irritable. Propranolol increased to 20 mg twice daily to target hypertension and anxiety. Low sodium diet encouraged. [facility] paperwork completed for his employer. Follow-up in 1 week for hypertension and anxiety. Return sooner with symptoms or concerns. Verbalized understanding and agreed with the plan. (2) Anxiety: Code(s): F41.9 - Anxiety disorder, unspecified Category: Medical Plan: Plan as above. (3) Hospital discharge follow-up: Code(s): Z09 - Encounter for follow-up examination after completed treatment for conditions other than malignant neoplasm Category: Medical Plan: Plan as above. Medications: New propranolol 20 mg PO BID 60 tabs 3RF 30 days Discontinued propranolol Discontinued Reason: Doctor's Order 10 mg PO BID 30 days 60 tabs 3RF
[2025-06-04 11:16] VITALS: BP 158/109; PULSE 71; RESP 16; TEMP 36.6; O2SAT 97; BMI 32.2
[2025-06-04 11:50] VITALS: BP 160/90; PULSE 76
--- OUTSIDE RECORDS SUMMARY | 2025-06-04 12:33 | XMS_ITS | Clinical Summary ---
Author Organization [facility] Address [address] [place] [address] Care Team Providers Care Production Planner Scheduler Name Role Phone Barbara Schilling Primary Care Provider [phone] Surgical History Surgery Date Site/Laterality Comments UPPER GASTROINTESTINAL ENDOSCOPY PROCEDURE:UPPER GASTROINTESTINAL ENDOSCOPY CARDIAC CATHETERIZATION 07/23/2015 N/A PROCEDURE:CARDIAC CATHETERIZATION;COMMENT:Proce dure: LEFT HEART CATHETERIZATION ? 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 STOKER INSTALLATION MECHANIC; Service: Cardiology; Laterality: N/A; Medical History Medical [...] DX:Acute CVA (cerebrovascul ar accident) ([facility]);COMMENT:Left MCA History of echocardiogram 07/23/15 DX:His tory of echocardiogram;COMMENT:EF 55 6 5 percent, normal RV systolic function, moderate sized pedunculated multilobular LV mass, mobile, located along septum History of stroke 09/29/2016 DX:History of stroke Hx of myocardial infarction 08/04/2017 DX:H x of myocardial infarction Hyperlipidemia 09/12/2015 DX:Hyperlipidemi a Pulmonary embolism ([facility] V24, [facility] V28) DX:Pulmonary embolism ([facility]) DVT (deep venous thrombosis) ([facility] V24, [facility] V28) DX:DVT (deep venous thrombos is) ([facility]) Family History Medical History Relation [...] age to complete this topic Care Teams Production Planner Scheduler Relationship Specialty Start Date End Date Barbara Schilling PA PCP - General Reliability Manager 08/27/17
--- OUTSIDE RECORDS SUMMARY | 2025-06-04 12:33 | XMS_ITS | Clinical Summary ---
Author Organization [facility] Address [address] [place] [address] Care Team Providers Care Mechanical Project Manager Name Role Phone Barbara Schilling PA-C Primary Care Provider [phone] Allergies Active Allergy Reactions Criticality Noted Date [...] iniety anticoagulation with NOAC indicated (hematology eval [facility] 03/01/2018) 03/11/2018 Overview: Per hematology evaluation at [facility] on 03/01/[address] Lozano, no evidence [...] syndrome 09/09/2017 Coronary artery disease invo lving [place] coronary artery of [place] heart without angina pectoris 09/04/2017 H/O gastroesophageal reflux (GERD) 09/04/2017 unprovoked/idiopathic R gastroc DVT 08/28/2017 1 11/04/2016 Bilateral pulmonary embolism, unprovoked 017 09/04/2017 Overview: [facility] L pulmonary infarction 09/04/2017 Apical mural thrombus s/p [place] 08/04/2017 Overview: From [facility] history OV [place] TELLEZ 08/26/2017 Echo 08/26/2017: [...] Advance Directives For more information, please contact: [phone] Documents on File Type Date Recorded 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 Care Teams Mechanical Project Manager Relationship Specialty Start Date End Date Barbara Schilling PA-C PCP - General Property Disposal Officer 08/27/17
--- OUTSIDE RECORDS SUMMARY | 2025-06-04 12:33 | XMS_ITS | Clinical Summary ---
Author Organization [facility] Address [address] [place] [address] Care Team Providers Care Infection Control Practitioner Name Role Phone Barbara Schilling Primary Care Provider [phone] Allergies Active Allergy Reactions Criticality Noted Date [...] with: Unable to Di scuss Care Teams Infection Control Practitioner Relationship Specialty Start Date End Date Barbara Schilling PA PCP - General 10/27/18
--- OUTSIDE RECORDS SUMMARY | 2025-06-04 12:33 | XMS_ITS | Clinical Summary ---
Author Organization [address] Address [address] [place] [phone] Care Team Providers Care Lean Six Sigma Senior Specialist Name Role Phone Barbara Schilling Primary [...] (1 - 1-dose 75+ series) 2052 Meningococcal B Vaccine Aged Out No l onger eligible based on patient's age to complete this topic Meningococcal Vaccine Aged Out No johnathan angella [...] - 144 mmol/L 06/18/2020 11:30 AM EDT [facility] Potassium 4.2 3.3 - 5.1 mmol/L 06/18/2020 11:30 AM EDT [facility] Comment:Sample slightly hemo lyzed. Results may be falsely elevated due to hemolysis. Chloride 105 98 - 107 mmol/L 06/18/2020 11:30 AM EDT [facility] CO2 25 20 - 30 mmol/L 06/18/2020 11:30 AM EDT [facility] Anion Gap 11 7 - 17 06/18/2020 11:30 AM EDT [facility] Glucose 97 70 - 100 mg/dL 06/18/2020 11:30 AM EDT [facility] BUN 6 6 - 20 mg/dL 06/18/2020 11:30 AM EDT [facility] Creatinine 0.90 0.40 - 1.30 mg/dL 06/18/2020 11:30 AM EDT [facility] Calcium 9.1 8.8 - 10.2 mg/dL 06/18/2020 11:30 AM EDT [facility] BUN/Creatinine Ratio 6.7(L) 8.0 - 23.0 06/18/2020 11:30 AM EDT [facility] eGFR (Afr Amer) >60 >60 mL/min/1.7 3m2 06/18/2020 11:30 AM EDT [facility] Comment: Values under 60mL/min/1.73m2 may indicate CKD if noted for more than 3 months. eGFR is only valid if creatinine is at steady state. eGFR (NON -Adali n) >60 >60 mL/min/1.7 3m2 06/18/2020 11:30 AM EDT [facility] Comment: Values under 60mL/min/1.73m2 may indicate CKD if noted for more than 3 months. eGFR is only valid if creatinine is at steady state. Blood Venipuncture / Unknown 06/18/2020 10:51 AM EDT 06/18/2020 11:00 AM EDT [facility] BLOOD ORDERABLES Final Result Performing Organization Address City/State/[facility] Co de Phone Number [facility] [address] [place] [address], [facility] [phone] from Last 3 Months or Most Recently Relevant to Health Maintenance Insurance [facility] Care Teams Lean Six Sigma Senior Specialist Relationship Specialty Start Date End Date Barbara Schilling PA PCP - General 08/26/17
== END 2025-06-04 14:08 | disposition home or self-care (01) ==
LOC: HO.HMCFM 11:12
PROVIDERS: PCP Nurse Practitioner Family; Visit Provider Nurse Practitioner Family
DX: I10 Essential (primary) hypertension (principal); F41.9 Anxiety disorder, unspecified; Z09 Encounter for follow-up examination after completed treatment for conditions other than malignant neoplasm

== ENCOUNTER → 2025-06-04 11:11 | Outpatient (BNVA) | payer OTHER, SELFPAY | PROVIDERS: PCP Nurse Practitioner Family; Visit Provider Nurse Practitioner Family | DX: I10 Essential (primary) hypertension (principal); F41.9 Anxiety disorder, unspecified; Z09 Encounter for follow-up examination after completed treatment for conditions other than malignant neoplasm | CPT/HCPCS: 99212 ==